=== PATIENT | female | born 1945 | race Caucasian/White ===

== ENCOUNTER → 2021-02-04 15:16 | Outpatient (CLI) | payer MEDICARE, SELFPAY ==
--- NOTE | ~2021-02-04 | MR_ITS ---
EXAMINATION: MR knee LT wo con DATE: 02/04/2021 15:54 INDICATION: Medial meniscal tear presenting with chronic generalized left knee pain TECHNIQUE: Magnetic resonance imaging (MRI) of the left knee was performed without intravenous contra st. Sequences included coronal PD-weighted FSE, coronal PD-weighted FS FSE, sagittal T2-weighted FSE , sagittal PD-weighted FS FSE and axial PD weighted fat saturated FSE. COMPARISON: None. FINDINGS: Medial compartment: There is complex tear of the medial meniscal body. There is medial extrusion of the meniscal body. Th ere is partial thickness cartilage loss which appears to involve greater than 50% the cartilage thick ness along the anterior to central weightbearing medial femoral condyle as well as significant portio ns of the medial tibial plateau. There is some associated low signal intensity eburnation along the a rticular cortices along with scattered mild subarticular edema) along the medial rim of the medial ti bial plateau where there appears be some developing subarticular cystic change. Articular cartilage i s normal. Lateral compartment: Lateral meniscus is normal. Small region of shallow chondral ulceration at the anterior weightbearing lateral femoral condyle as well as along the cartilage along the lateral side of the intercondylar e minence where there is mild subarticular edema. Patellofemoral compartment: Deep chondral ulceration along significant portions of the medial patellar facet extending across the cephalad aspect of the apical ridge and superomedial aspect of the lateral patellar facet. Lateral w ith mild underlying subarticular edema. Extensive deep chondral ulceration with underlying cortical i rregularity, subarticular edema and cystic changes at the inferior aspect of the medial trochlea, sma ll portion of the central aspect of the trochlear groove and significant portion of the lateral side of the lateral trochlea. Ligaments and tendons: The anterior cruciate ligament demonstrates a normal angle relative to Blumenstaat's line. It appears thickened with increased intrasubstance signal surrounding intact appearing linear fibers with a ce lery stalk appearance consistent with mucoid degeneration. Posterior cruciate ligament is normal. Th e medial collateral ligament and fibular collateral ligament complex are normal. The extensor mechani sm is normal. The visualized medial and lateral hamstring tendons as well as the iliotibial band are normal. Fluid: Moderate-sized knee joint effusion with moderate synovitis at the suprapatellar pouch and along the p osterior margin of Hoffa's fat pad. Large multilobulated Camarillo's cyst measuring 7.3 x 3.3 x 2.4 cm. A dditional small ganglion cyst extending caudally along the popliteus muscle and tendon. No loose oste ochondral bodies identified. Osseous/other: No fracture or abnormal marrow replacing process. IMPRESSION: 1. Complex tear at the posterior horn of the medial meniscus. 2. Tricompartmental osteoarthritis, moderate severity with extensive high-grade chondromalacia in the patellofemoral compartment and moderate to high-grade chondromalacia in the medial compartment. 3. Thickened but intact appearing anterior cruciate ligament with celery stalk appearance consistent with mucoid degeneration. Correlate with physical exam to assess for degree of functional competence. 4. Likely reactive moderate sized right knee joint effusion with moderate associated synovitis. 5. Large multiloculated Camarillo's cyst. Reviewed, dictated and finalized at location A.
== END ==
PROVIDERS: PCP Family Medicine; Visit Provider Family Medicine
DX: S83.249A Other tear of medial meniscus, current injury, unspecified knee, initial encounter (principal); M17.12 Unilateral primary osteoarthritis, left knee; M94.262 Chondromalacia, left knee; M25.462 Effusion, left knee; M65.862 Other synovitis and tenosynovitis, left lower leg; M71.22 Synovial cyst of popliteal space [Baker], left knee
CPT/HCPCS: 73721

== ENCOUNTER 2021-07-14 15:48 | Outpatient (CLI) | payer MEDICARE, SELFPAY ==
--- NOTE | ~2021-07-14 | MM_ITS ---
EXAMINATION: MM screening kathrine BI w corinne HISTORY: Screening TECHNIQUE: Craniocaudal and mediolateral oblique 3-D tomosynthesis images were obtained and synthetic 2-D images were generated. CAD analysis was submitted and interpreted. COMPARISON: Comparison to multiple prior studies sequentially, with oldest reviewed study dated 2011. BREAST PARENCHYMAL COMPOSITION: The breasts are heterogeneously dense, which may obscure small masses . FINDINGS: There is no evidence of suspicious mass, calcification, or architectural distortion to sugg est malignancy in either breast. There has been no suspicious interval change. IMPRESSION: 1. No mammographic evidence of malignancy. 2. Recommend routine screening mammography in one year. BI-RADS Category 1: Negative Reviewed, dictated and finalized at location A. TS ADMINISTRATIVE ASSISTANT
== END 2021-07-14 15:49 | disposition home or self-care (01) ==
LOC: ANHIMG 15:50
PROVIDERS: PCP Family Medicine; Visit Provider Physician Assistant Medical
DX: Z12.31 Encounter for screening mammogram for malignant neoplasm of breast (principal)
CPT/HCPCS: 77063; 77067

== ENCOUNTER 2022-09-11 08:52 | Outpatient (CLI) | payer MEDICARE, SELFPAY ==
--- NOTE | 2022-09-11 10:13 | ECG_ITS ---
Measurements Intervals [place] Rate: 56 P: 25 [place]: 156 QRS: 5 QRSD: 86 T: 78 QT: 428 QTc: 413 Interpretive Statements SINUS BRADYCARDIA NONSPECIFIC T-WAVE ABNORMALITY NO PREVIOUS ECG AVAILABLE FOR COMPARISON Electronically Signed On 09-11-2022 12:50:07 [employer]ELD WORK[employer] by Stanley Sneed M.D.
[2022-09-11 10:41] LABS: Basophils Percent Auto 0.5 % (0.2-1.2); Eosinophils Absolute Auto 0.1 K/mm3 (0-0.3); Eosinophils Percent Auto 1.5 % (0-4.4); Hematocrit 39.3 % (37.0-47.0); Hemoglobin 12.7 g/dL (12.0-15.0); Immature Granulocyte Absolute 0.02 K/mm3 (0.00-0.031); Immature Granulocyte Percent A 0.3 % (0-0.5); Lymphocytes Percent Auto 26.1 % (18.3-44.2); Mean Corpuscular HGB Conc 32.3 g/dl (32-36); Mean Corpuscular Hemoglobin 30.8 pg (26-34); Mean Corpuscular Volume 95.4 fl (80-100); Mean Platelet Volume 8.5 fl (7.4-10.4); Monocytes Absolute Auto 0.5 K/mm3 (0.1-0.6); Monocytes Percent Auto 7.1 % (2.6-8.5); Neutrophils Absolute Auto 4.7 K/mm3 (1.3-6.7); Neutrophils Percent Auto 64.5 % (45.5-73.1); Platelet Count Result 365 k/mm3 (150-375); Red Blood Count 4.12 M/mm3 (4.2-5.4); Red Cell Distribution Width 13.9 % (11.5-14.5); White Blood Count 7.3 K/mm3 (4.5-10.0)
[2022-09-11 11:07] LABS: Urine Cotinine NEGATIVE
== END 2022-09-11 08:53 | disposition home or self-care (01) ==
LOC: ANHSURGERY 08:58
PROVIDERS: PCP Family Medicine; Visit Provider Orthopaedic Surgery
DX: Z01.818 Encounter for other preprocedural examination (principal); M17.11 Unilateral primary osteoarthritis, right knee
CPT/HCPCS: 80307; 85025; 87081; 87147; 87181; 87186; 93005

== ENCOUNTER 2022-09-25 00:02 | Day surgery (SDC) | payer MEDICARE, SELFPAY ==
[2022-09-11 09:19] VITALS: BP 143/83; PULSE 60; RESP 16; TEMP 36.8; O2SAT 98; BMI 23.7
--- NOTE | 2022-09-11 09:38 | PC.NURSE ---
Report to the Outpatient Waiting Room, entrance under the green pavilion located off [facility], at time __6:00AM on date _09/25/22 . Planned Procedure Time: _7:30AM . Time changes happen often and if your time is changed the preop area will call you the afternoon before. - You and your visitor will be asked to self-screen and do not enter if you have any COVID symptoms. - Only one visitor is requested with a max of two and NO children visitors are allowed at this time. - The patient visitor may be requested to leave or wait in car when not with patient due to distancing restrictions. - A mask is optional within the hospital at this time. Patients may have clear liquids (water, carbonated beverages, clear teas, apple juice) until 3 hours prior to surgery with a maximum of 20 ounces. - No food from midnight until time of surgery Take the following medications with a SIP of water the morning of surgery: __FLUOXETINE, LEVOTHYROXINE, ALPRAZOLAM NEEDED, TRAMADOL NEEDED DO NOT STOP ANY OF YOUR OTHER PRESCRIPTION MEDICATIONS PRIOR TO SURGERY ?EXCEPT THE FOLLOWING Medications to discontinue per physician ____HOLD ALL VITAMINS/SUPPLEMENTS AND NSAIDS(IBUPROFEN)FOR 7 DAYS PRE-OP Date to take last dose 09/18/22 Please no make-up, nail bahamian, hairspray, perfume, deodorant, or body powder the day of surgery. No jewelry (including any body piercings) or valuables the day of surgery, leave them at home. Please take a shower or bath the night before, or the morning of, surgery with an antibacterial soap. Wear comfortable, loose fitting clothing. Children are encouraged to wear pajamas. - Jewelry must be removed prior to entering the operating room. Rings and piercings that are not removed may be cut off. - The hospital will not accept responsibility for valuables. - Please leave all valuables, including medications, at home the day of surgery. If you are going home after surgery, a licensed wrecker driver must drive you home. - NO public transportation without another adult if you receive anesthesia. - We recommend that an adult stay with you for 24 hours following discharge. - We also recommend that you do not drive, make important decision, drink alcoholic beverages, or take any drugs that were not prescribed by your health care provider for at least 24 hours after your discharge time. Follow any additional instructions given to you from your surgeon. If you or anyone in your household have experienced Covid symptoms in the past week, please notify your surgeon or the nurse liaison at the phone number below for possible testing. Telephone instructions given to __PATIENT____and asked if any additional questions and then verbalized understanding. Patient advised to call surgeon office or pre surgery nurse liaison [phone] if any additional questions.
--- NOTE | 2022-09-22 13:03 | PM.IMHP ---
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 She has been having pain in both her knees for years. She has severe medial compartment osteoarthritis in both knees. The right is more symptomatic than the left. She has tried cortisone injections in the past, With minimal improvement of her symptoms. She had Synvisc 1 injections in June of 2022 also with no improvement of her symptoms. Patient does use [id number] anti-inflammatories. She feels at this point she is ready to proceed with total knee arthroplasty rather than continue any nonsurgical treatment. Review of Systems Review of Systems: All systems reviewed & are unremarkable except as noted in HPI and below PMFSH Past Medical History Medical History Blood transfusion without reported diagnosis COVID-19 History of chicken pox History of measles Hx gestational diabetes Tattoo Surgical History Surgical History H/O partial thyroidectomy right History of adenoidectomy History of bladder surgery A&P repair History of hysterectomy History of tonsillectomy Family History Family History Mother , age 85 Diabetes mellitus Alzheimer's disease Father , age 70 Family history of heart disease in male family member before age 55 Depression Acute myocardial infarction Heart disease Coronary artery disease Sibling Hyperlipidemia Sibling , age 76 Hyperlipidemia Heart disease Sibling Prediabetes Sibling No chronic problems Grandparent Dementia Grandparent Dementia Daughter Prediabetes Daughter No chronic problems Daughter No chronic problems Other Malignant neoplasm of prostate Social History Social History Smoking status: Former smoker Tobacco type: cigarettes Smoking end date: 01/20/74 Additional smoking assessment comments: SMOKED ~1/2 PACK/WEEK X 3 YEARS Alcohol intake: current Substance use: never Living arrangements: with family Additional living arrangements comments: [facility] Spiritual care concerns: No Meds Home Medications and Allergies Home Medications Medication Instructions Recorded Confirmed Type blood sugar diagnostic #10 ea 07/09/19 09/20/22 History cholecalciferol (vitamin D3) 50 2,000 unit PO DAILY 07/09/19 09/20/22 History mcg (2,000 unit) tablet coenzyme Q10 200 mg capsule (Co 200 mg PO DAILY 07/09/19 09/20/22 History Q-10) omega-3 fatty acids 1,000 mg 1,000 mg PO DAILY 07/09/19 09/20/22 History capsule (Fish Oil Concentrate) pen needle, diabetic 31 gauge x #100 ea 08/31/20 09/20/22 Rx 3/16 (BD Ultra-Fine Mini Pen Needle) alprazolam 0.5 mg tablet (Xanax) 0.5 mg PO DAILY PRN Anxiety 09/11/22 09/20/22 History cyanocobalamin (vitamin B-12) 5,000 mcg PO DAILY 09/11/22 09/20/22 History 5,000 mcg capsule fluoxetine 40 mg capsule 40 mg PO QAM 09/11/22 09/20/22 History ibuprofen 800 mg tablet 800 mg PO BID 09/11/22 09/20/22 History insulin glargine 100 unit/mL (3 11 unit subcut QA 09/11/22 09/20/22 History mL) subcutaneous pen (Lantus Solostar U-100 Insulin) levothyroxine 112 mcg tablet 112 mcg PO QAM 09/11/22 09/20/22 History (Synthroid) metformin 500 mg tablet,extended 500 mg PO BID 09/11/22 09/20/22 History release 24 hr tramadol 50 mg tablet 100 mg PO BID 09/11/22 09/20/22 History valacyclovir 1 gram tablet 1,000 mg PO DAILY 09/11/22 09/20/22 History Allergies Allergy/AdvReac Type Severity Reaction Status Date / Time clindamycin AdvReac Unknown Diarrhea Verified 09/20/22 10:56 rosuvastatin AdvReac Unknown DEPRESSED Verif
[2022-09-25] VITALS (14 sets, daily range): BP systolic 104–169; BP diastolic 54–85; PULSE 63–97; RESP 12–20; TEMP 35.7–37; O2SAT 92–100
--- NOTE | ~2022-09-25 | US_ITS ---
EXAMINATION: US venous doppler LE RT DATE: 09/26/2022 15:08 INDICATION: Right lower limb pain. TECHNIQUE: Grayscale ultrasound images without and with compression and Doppler ultrasound images of the right lower extremity veins were obtained. COMPARISON: None. FINDINGS: The visualized portions of right common femoral vein, profunda (deep) femoral vein, femoral vein, pop liteal vein, peroneal veins, posterior tibial veins, and greater saphenous vein outflow are patent. IMPRESSION: 1. No deep venous thrombosis. Reviewed, dictated and finalized at location [facility]. [facility]
--- NOTE | ~2022-09-25 | XR_ITS ---
EXAMINATION: [id number] DATE: 09/25/2022 11:02 INDICATION: Total right knee arthroplasty. Postop. TECHNIQUE: 2 views of right knee were obtained. COMPARISON: None. FINDINGS: There is a total right knee arthroplasty without patellar resurfacing in near-anatomic alig nment. No fracture. There is gas in the knee joint and soft tissues, consistent with recent surgery. IMPRESSION: 1. Total right knee arthroplasty in near-anatomic alignment. Reviewed, dictated and finalized at location A. [facility]
[2022-09-25 07:00] LABS: Glucose Point of Care 88 mg/dl (65-105)
[2022-09-25] MEDS: LACTATED RINGERS 1,000 ML 30 ML IV CONT ×2 (07:00→10:56)
[2022-09-25] MEDS: TRANEXAMIC ACID 1,000MG/ISO100 1,000 MG/100 ML BAG 200 MG IVPB (07:00)
[2022-09-25] MEDS: ACETAMINOPHEN 500 MG TABLET 1000 MG PO ×2 (07:00→13:39)
--- NOTE | 2022-09-25 07:03 | WPDHPUPDATE1 ---
History and Physical Update Update Date/Time: 09/25/22 07:03 History and Physical has been reviewed, including an updated exam of the patient. There are NO changes in the patient's condition. Risks, benefits, and alternatives have been discussed and questions answered. Patient agrees to proceed with procedure.
--- NOTE | 2022-09-25 07:05 | WPDANESEPPF ---
Anes - Initial Pre Proc Eval Procedure: Operation Date: 09/25/22 07:30 Proposed Procedures p Right Total Knee Arthroplasty - Hemanth Aguilar MD Date/Time: 09/25/22 07:05 Surgeon: Hemanth Aguilar MD Pre Op Diagnosis: O.A. Right Knee Patient Data Age: 77 Gender: F Height: 1.65 m Weight: 64.6 kg Last Vital Signs Temp 98.2 F 09/11/22 09:19 Pulse 60 09/11/22 09:19 Resp 16 09/11/22 09:19 BP 143/83 H 09/11/22 09:19 Pulse Ox 98 09/11/22 09:19 O2 Del Method Room Air 09/11/22 09:19 Allergies Allergy/AdvReac Type Severity Reaction Status Date / Time clindamycin AdvReac Unknown Diarrhea Verified 09/20/22 10:56 rosuvastatin AdvReac Unknown DEPRESSED Verified 09/20/22 10:56 MOOD simvastatin AdvReac Unknown DEPRESSED Verified 09/20/22 10:56 MOOD amoxicillin AdvReac Diarrhea Verified 09/20/22 10:56 cephalexin [From Keflex] AdvReac Diarrhea Verified 09/20/22 10:56 diclofenac AdvReac Diarrhea Verified 09/20/22 10:56 Home Medications Medication Instructions Recorded Confirmed Type blood sugar diagnostic #10 ea 07/09/19 09/20/22 History cholecalciferol (vitamin D3) 50 2,000 unit PO DAILY 07/09/19 09/20/22 History mcg (2,000 unit) tablet coenzyme Q10 200 mg capsule (Co 200 mg PO DAILY 07/09/19 09/20/22 History Q-10) omega-3 fatty acids 1,000 mg 1,000 mg PO DAILY 07/09/19 09/20/22 History capsule (Fish Oil Concentrate) pen needle, diabetic 31 gauge x #100 ea 08/31/20 09/20/22 Rx 3/16 (BD Ultra-Fine Mini Pen Needle) alprazolam 0.5 mg tablet (Xanax) 0.5 mg PO DAILY PRN Anxiety 09/11/22 09/20/22 History cyanocobalamin (vitamin B-12) 5,000 mcg PO DAILY 09/11/22 09/20/22 History 5,000 mcg capsule fluoxetine 40 mg capsule 40 mg PO QAM 09/11/22 09/20/22 History ibuprofen 800 mg tablet 800 mg PO BID 09/11/22 09/20/22 History insulin glargine 100 unit/mL (3 11 unit subcut QAM 09/11/22 09/20/22 History mL) subcutaneous pen (Lantus Solostar U-100 Insulin) levothyroxine 112 mcg tablet 112 mcg PO QAM 09/11/22 09/20/22 History (Synthroid) metformin 500 mg tablet,extended 500 mg PO BID 09/11/22 09/20/22 History release 24 hr tramadol 50 mg tablet 100 mg PO BID 09/11/22 09/20/22 History valacyclovir 1 gram tablet 1,000 mg PO DAILY 09/11/22 09/20/22 History Laboratory Tests 09/25/22 06:57 POC Capillary Glucose 88 mg/dl mg/dl (65-105) Patient hx anesthesia problems: post op nausea/vomiting Family hx anesthesia problems: none Results Review: All pre-operative results and documents have been reviewed as part of the pre-operative evaluation. [facility] Past Medical History Medical History Blood transfusion without reported diagnosis COVID-19 History of chicken pox History of measles Hx gestational diabetes Tattoo Surgical History Surgical History H/O partial thyroidectomy right History of adenoidectomy History of bladder surgery A&P repair History of hysterectomy History of tonsillectomy Family History Family History Mother , age 85 Diabetes mellitus Alzheimer's disease Father , age 70 Family history of heart disease in male family member before age 55 Depression Acute myocardial infarction Heart disease Coronary artery disease Sibling Hyperlipidemia Sibling , age 76 Hyperlipidemia Heart disease Sibling Prediabetes Sibling No chronic problems Grandparent Dementia Grandparent Dementia Daughter Prediabetes Daughter No chronic problems Daughter No chronic problems Other Malignant neoplasm of prostate Social History Social History Smoking status: Former smoker Tobacco type: cigarettes Smoking end date: 01/20/74 Additional smoking a
[2022-09-25] MEDS: ceFAZolin 2 GM/D5W 50 ML 2 GM/50 ML BAG IVPB (07:28)
[2022-09-25] MEDS: SCOPOLAMINE 1.5 MG PATCH TRANSDERM (07:30)
[2022-09-25] MEDS: ceFAZolin SODIUM 1 GM VIAL 3 GM (08:32)
[2022-09-25] MEDS: GENTAMICIN BONE CEMENT REFOBACIN 1 EACH TOPICAL (09:46)
[2022-09-25] MEDS: KETOROLAC 15 MG/ML VIAL (*BKC) IV PUSH (09:57)
[2022-09-25] MEDS: TRANEXAMIC ACID 1,000 MG/10 ML AMPUL 1000 MG IV PUSH (10:00)
[2022-09-25] MEDS: ceFAZolin SODIUM 1 GM VIAL IV PUSH (10:02)
--- NOTE | 2022-09-25 10:34 | SUR.OPER ---
450mL of clear yellow urine drained from shea in OR
--- NOTE | 2022-09-25 10:36 | W.PM.PROC2 ---
Procedure Note - Detailed Date of Procedure 09/25/22 Pre-op Diagnosis O.A. Right Knee Post-op Diagnosis Same Procedure Performed Right total knee arthroplasty Surgeon Hemanth Aguilar MD Snuff Grinder Vangie Anesthesia General Description of Procedure Patient was brought to the operating room and general anesthesia wound was administered. She received 2 g of Ancef weight based vancomycin 1 g of tranexamic acid preoperatively. After prep and drape the limb was exsanguinated tourniquet elevated to 250 mmHg. A 7 in longitudinal incision was made over the anterior aspect of the right knee. Her skin was very thin and I did not feel it would be best to utilize a vastus medialis splitting approach because of the necessity of elevating the medial skin flap so standard parapatellar arthrotomy was performed. Infrapatellar and suprapatellar fat pads were excised a quadriceps synovectomy carried out. The patella had some small osteophytes that were debrided the remaining patellar surface had only very mild chondromalacia no deformity and suitable for non resurfacing. Minimal lateral facetectomy was performed. A A she had fairly extensive thick by synovitis in the suprapatellar pouch which was hyperemic and had fronds covering it surface. We will plan on obtaining a rheumatoid factor and anti CCP postoperatively. The arthritis was quite advanced however which might be the a explanation for the intense chronic synovitis. There was no ACL and the lateral tibial eminence was severely worn and there was a deep groove in the lateral tibial plateau a had been wearing against the lateral tibial eminence. A guide chantel was inserted down the femoral canal after aspiration of canal contents and using the 5 degree valgus cutting bushing 9 mm of bone removed the distal femur. This removed 9 for lateral side and only about 8 a from the medial side due to wear. Next the tibial plateau was cut and we made a skim cut off the low point of the medial tibial plateau and this removed about a 9 mm laterally. Meniscal remnants were excised and the PCL recessed. Femoral sizing guide was applied to the distal femur set at 4? of external rotation which matched Whitesides line. Posterior referencing pinholes were placed. The 62.5 cutting block was applied but we could see this was going to notch. We introduced a little bit of flexion on the distal femoral cut and applied the 65 cutting block which gave a flush cut anteriorly. Posterior and chamfer cuts were completed. The 65 femur however on over 1 mm medially and about 2 mm laterally I felt it was just a little too wide. The 10 CR trial slid in easily in flexion and came to close to full extension. The tibia was sized to a 67 vanguard. The we tried to make a 71 fit it was going to overhang at the proper rotation by at least 2 mm. The 67 was rotated properly and punched. We trialed with the 10 insert which had a medial opening at 90? of 1 mm 2 mm on the lateral side. The knee almost came out to full extension with 1-2 medially and laterally. We trialed the 11 and it was too tight at 90? of flexion no anterior drawer. We carefully assess the fit of the 65 femur and even posteriorly it was overhanging lateral femoral condyle and I felt it therefore necessary to downsized to the 62.5. We did this by introducing another degree of flexion and proceeded carefully to minimize the degree of notch which was present but mild. Chamfer and posterior cuts were made appropriate and the 62.5 fit exactly line to line distally from medial to lateral. With this we had the same stability findings as mentioned above. We still had just a barely positive bounce. The residual posterior condylar bone was removed this time with the trial femur in place and on repeat trialing the knee came out to full extension with a negative bounce. Patellar tracking was excellent. Satisfied with this the lug holes were drilled. We had put the tourniquet down earlier at 9
--- NOTE | 2022-09-25 11:04 | P.OPB_ITS ---
Procedure Note - Brief Procedure Note - Brief Date of procedure: 09/25/22 Pre-op diagnosis: O.A. Right Knee Right knee DJD Procedure performed: right total knee arthroplasty Description of procedure: [age]-year-old female underwent right total knee arthroplasty on 09/25. I was involved in the procedure including positioning patient on the OR table. assistant professor of marine biology to time surgery as well assisting getting patient to recovery room. Total time spent was 3-1/2 hours Surgeon: KORINA Moore
[2022-09-25 11:07] LABS: Glucose Point of Care 190 mg/dl (65-105)
[2022-09-25] MEDS: fentaNYL CITRATE INJ (*CRX) 100 MCG/2 ML VIAL 25 MCG IV PUSH ×7 (11:23→12:28)
[2022-09-25] MEDS: ONDANSETRON INJ 4 MG/2 ML VIAL IV PUSH ×2 (11:23→17:42)
[2022-09-25] MEDS: diphenhydrAMINE HCl INJ 50 MG/ML VIAL 12.5 MG IV PUSH (11:58)
--- NOTE | 2022-09-25 13:33 | PC.NURSE ---
This patient, Stephania Benjamin, was admitted to Medical Room 345-01. Patient/family oriented to hospital policies and general routines including ID bracelet, bed and alarms, visiting hours, pain management, procedures, bathroom and other care routines, personal items, smoking policy, room service/diet, and visiting hours. Information on how to activate the Rapid Response Team has been discussed. Patient/Family are encouraged to report perceived risks to care and to ask questions if they do not understand what they are told or what they should do.
[2022-09-25] MEDS: SODIUM CHLORIDE 0.9% IV 1,000 ML 125 ML IV CONT (13:40)
--- NOTE | 2022-09-25 14:08 | PC.NURSE ---
Called pharmacy regarding toradol dose. There is none in the pyxis at this time.
[2022-09-25] MEDS: KETOROLAC 15 MG/ML VIAL (*BKC) 7.5 MG IV PUSH ×2 (15:25→21:18)
[2022-09-25 15:43] LABS: Glucose Point of Care 179 mg/dl (65-105)
[2022-09-25 16:11] LABS: Rheumatoid Factor < 8.6 IU/ML (<12)
[2022-09-25] MEDS: ceFAZolin 1 GM/NS 50 ML 1 GM/50 ML BAG IVPB (17:45)
--- NOTE | 2022-09-25 20:20 | WPDCN ---
Assessment and Plan Assessment and plan (1) Right knee DJD: Code(s): M17.11 - Unilateral primary osteoarthritis, right knee Status: Acute Assessment and Plan: Postoperative day 0 status post right total knee arthroplasty. Wound care, pain control, and DVT prophylaxis deferred to Dr. Aguilar. BMP and CBC ordered for a.m. (2) Postoperative nausea and vomiting: Code(s): R11.2 - Nausea with vomiting, unspecified; Z98.890 - Other specified postprocedural states Status: Acute Assessment and Plan: Ondansetron did not help much. Phenergan helps the nausea but caused mild confusion. Symptoms are a lot better. She is tolerating only small amounts of clear liquids. (3) Insulin dependent diabetes mellitus: Status: Acute Assessment and Plan: Hold basal insulin for now as she is not eating much. Initiate sliding scale insulin, Accu-Cheks, and hypoglycemic protocol. (4) Hypothyroidism: Code(s): E03.9 - Hypothyroidism, unspecified Status: Acute Assessment and Plan: Continue levothyroxine and check TSH. (5) Depression: Code(s): F32.A - Depression, unspecified Status: Acute Assessment and Plan: Continue fluoxetine. Plan Thank you for allowing us to participate in this patient's care. Please do not hesitate to contact us with any questions. HPI Data of Consult Date/Time: 09/25/22 20:20 Requesting Physician: Hemanth Aguilar MD Consult Narrative Reason for consult: Postoperative medical management. Narrative: This is a 59-year-old female with Insulin-dependent diabetes, dyslipidemia intolerant to statins, hypothyroidism, depression, and osteoarthritis of the right knee status post right total knee arthroplasty today per Dr. Aguilar whom the hospitalist service has been consulted for management of her medical conditions postoperatively. She has had longstanding pain in that right knee not amenable to conservative outpatient treatment and she opted for replacement today. Her surgery was performed under general anesthesia with no immediate complications documented an estimated blood loss of 200 mL. I initially saw the patient when she was working with physical therapy. She felt a bit unsteady and woozy on her feet and was nauseated when she stood up. None less she was able to participate in therapy. As the day has progressed she has continued to have postoperative nausea and a couple of episodes of emesis. She was given ondansetron without benefit and a 1 time dose of Phenergan 12.5 mg was ordered which has helped significantly with the nausea though she now seems a bit confused. Pain is currently 4/10 and manageable. She denies fever, chills, sweats, chest pain, and shortness of breath. No personal or family history of venous thromboembolism. Glucose has been stable. No blurry vision, polydipsia, or polyuria. Review of Systems Review of Systems: Twelve systems were reviewed and are negative except for as per HPI. [facility] Past Medical History Medical History Basal cell carcinoma of skin of lip COVID-19 (09/2021) Depression Dyslipidemia Hypothyroidism Insulin dependent diabetes mellitus Irritable bowel syndrome with diarrhea Surgical History Surgical History History of arthroplasty of right knee (09/25/22) History of bladder surgery A&P repair History of hysterectomy History of partial thyroidectomy Right lobe. History of tonsillectomy and adenoidectomy Family History Family History Mother , age 85 Diabetes mellitus Alzheimer's disease Father , age 70 Family history of heart disease in male family member before age 55 Depression Acute myocardial infarction Heart disease Coronary artery disease Sibling Hyperlipidemia Sibling
[2022-09-25 20:47] LABS: Glucose Point of Care 161 mg/dl (65-105)
[2022-09-25] MEDS: PROMETHAZINE HCL 25 MG/ML AMPUL 12.5 MG IV PUSH (21:19)
[2022-09-26] MEDS: ceFAZolin 1 GM/NS 50 ML 1 GM/50 ML BAG IVPB ×2 (00:55→10:17)
[2022-09-26 02:33] VITALS: BP 159/66; PULSE 86; RESP 20; TEMP 36.6; O2SAT 94
[2022-09-26 05:36] LABS: Basophils Percent Auto 0.1 % (0.2-1.2); Hematocrit 28.3 % (37.0-47.0); Hemoglobin 9.4 g/dL (12.0-15.0); Immature Granulocyte Absolute 0.05 K/mm3 (0.00-0.031); Immature Granulocyte Percent A 0.4 % (0-0.5); Lymphocytes Percent Auto 7.1 % (18.3-44.2); Mean Corpuscular HGB Conc 33.2 g/dl (32-36); Mean Corpuscular Hemoglobin 30.9 pg (26-34); Mean Corpuscular Volume 93.1 fl (80-100); Mean Platelet Volume 8.9 fl (7.4-10.4); Monocytes Absolute Auto 0.9 K/mm3 (0.1-0.6); Monocytes Percent Auto 7.7 % (2.6-8.5); Neutrophils Absolute Auto 9.6 K/mm3 (1.3-6.7); Neutrophils Percent Auto 84.7 % (45.5-73.1); Platelet Count Result 227 k/mm3 (150-375); Red Blood Count 3.04 M/mm3 (4.2-5.4); Red Cell Distribution Width 13.9 % (11.5-14.5); White Blood Count 11.3 K/mm3 (4.5-10.0)
[2022-09-26 06:02] LABS: Alanine Aminotransferase 18 U/L (6-35); Albumin Level 3.5 g/dL (3.5-5.1); Alkaline Phosphatase 62 U/L (38-126); Anion Gap 1 mmol/L (8-16); Aspartate Amino Transferase 29 U/L (14-36); Bilirubin,Total 0.7 mg/dL (0.2-1.3); Blood Urea Nitrogen 9 mg/dL (7-17); Calcium 8.6 mg/dL (8.4-10.2); Carbon Dioxide 30 mmol/L (22-30); Chloride 97 mmol/L (98-107); Estimated CRCL calculation 73 ml/min; Estimated Glomerular Filt Rate > 60; Glucose 170 mg/dL (65-110); Magnesium 1.6 mg/dL (1.6-2.3); Potassium 4.1 mmol/L (3.4-5.0); Sodium 128 mmol/L (137-145)
[2022-09-26 06:33] VITALS: BP 155/64; PULSE 88; RESP 18; TEMP 36.2; O2SAT 92
[2022-09-26] MEDS: ACETAMINOPHEN 500 MG TABLET 1000 MG PO ×2 (06:49→12:46)
[2022-09-26] MEDS: LEVOTHYROXINE SODIUM 112 MCG TABLET PO (06:49)
[2022-09-26] MEDS: oxyCODONE HCL (*CRX) 5 MG TAB IR PO (06:50)
--- NOTE | 2022-09-26 07:18 | PM.PNORT ---
Subjective Subjective Date/Time Seen: 09/26/22 07:18 Postop day 1 patient is alert. She is afebrile vital signs are stable. Patient was having a lot of nausea last night and still this morning. She was very lightheaded when she got out bed so she has not been ambulating. She has been using a bedside commode only. She has a longstanding history nausea 4 years. There has been no episodes of emesis. She has not eaten anything aside from some crackers up until this point. She tried Zofran last night without improvement of the nausea and Phenergan caused her to become extremely sleepy. Sodium is low at 128 that could be contributing to her nausea. Also she has been taking narcotics on an empty stomach which could also be contributing to the nausea. I am going to change her narcotics to a lower dose. Going to give her a dose of Decadron this morning which should help with pain control as well. We will replace her scopolamine patch this morning as well. Her dressing is dry and intact. Neurovascularly she is intact. Minimal swelling in the knee. The plan will be to have the patient work with physical therapy today and see how she does through the afternoon. Hopefully she will be doing well and able ambulate without significant symptoms in which case we will plan to discharge her to home. If she continues to have significant symptoms and has difficulty with ambulation and balance we may need to keep her for an additional night. This was discussed with the patient this morning. Objective Data Vital Signs Vital Signs: Vital Signs - 24 hr 09/25/22 07:29 09/25/22 11:00 09/25/22 11:15 Temperature 35.7 C L 37.0 C Pulse Rate 63 84 92 Respiratory Rate 14 12 16 Blood Pressure 169/85 H 104/65 126/58 L Pulse Oximetry 97 99 100 Oxygen Delivery Room Air Simple Face Mask Simple Face Mask Oxygen Flow Rate 8 8 09/25/22 11:30 09/25/22 11:45 09/25/22 12:01 Temperature Pulse Rate 97 92 95 Respiratory Rate 20 14 18 Blood Pressure 131/60 128/59 L 135/59 L Pulse Oximetry 98 98 94 Oxygen Delivery Simple Face Mask Room Air Room Air Oxygen Flow Rate 8 09/25/22 12:16 09/25/22 12:30 09/25/22 13:00 Temperature 36.6 C Pulse Rate 94 95 80 Respiratory Rate 16 16 14 Blood Pressure 148/72 H 162/74 H 144/65 H Pulse Oximetry 96 97 98 Oxygen Delivery Room Air Room Air Oxygen Flow Rate 09/25/22 13:15 09/25/22 13:45 09/25/22 15:29 Temperature 36.6 C 36.3 C L Pulse Rate 79 81 Respiratory Rate 14 16 Blood Pressure 140/57 L 120/54 L Pulse Oximetry 98 98 Oxygen Delivery Room Air Oxygen Flow Rate 09/25/22 18:33 09/25/22 20:00 09/25/22 21:56 Temperature 36.3 C L 36.2 C L Pulse Rate 73 73 92 Respiratory Rate 18 18 20 Blood Pressure 166/81 H 162/68 H Pulse Oximetry 97 97 92 Oxygen Delivery Room Air Oxygen Flow Rate 09/26/22 02:33 09/26/22 06:33 Temperature 36.6 C 36.2 C L Pulse Rate 86 88 Respiratory Rate 20 18 Blood Pressure 159/66 H 155/64 H Pulse Oximetry 94 92 Oxygen Delivery Oxygen Flow Rate Intake/Output Intake/Output: Intake & Output 09/23/22 09/24/22 09/25/22 09/26/22 23:59 23:59 23:59 23:59 Intake Total 3820 50 Output Total 900 400 Balance 2920 -350 Meds/Results Medications: Active Medications Generic Name Dose Route Start Last Admin Trade Name Freq PRN Reason Stop Dose Admin Acetaminophen 1,000 mg 09/25/22 12:48 09/26/22 06:49 Acetaminophen 500 Mg Tablet PO 1,000 mg Q6H [facility] Administration Alprazolam 0.5 mg 09/25/22 12:48 Alprazolam (*Crx) 0.5 Mg Tablet PO DAILY PRN Anxiety Apixaban 2.5 mg 09/26/22 09:00 Apixaban 2.5 Mg Tablet PO 10/07/22 21:01 Q12HR [facility] Celecoxib 200 mg 09/26/22 08:00 Celecoxib 200 Mg Capsule PO DAILY@0800 [facility] Dexamethasone Sodium Phosphate 8 mg 09/26/22 07:20 Dexamethasone Sod Phos Inj 4 Mg/Ml Vial IV PUSH ONCE [facility] Dextrose 12.5 gm 09/25/22 23:24 Dextrose 50% 25 Gm/50 M
[2022-09-26] MEDS: SCOPOLAMINE 1.5 MG PATCH TRANSDERM (08:39)
[2022-09-26] MEDS: polyethylene glycoL 3350 17 GM POWD.PACK PO (08:39)
[2022-09-26 08:41] LABS: Glucose Point of Care 213 mg/dl (65-105)
[2022-09-26] MEDS: SENNA/DOCUSATE SODIUM TABLET 2 TAB PO (10:12)
[2022-09-26] MEDS: APIXABAN 2.5 MG TABLET PO (10:12)
[2022-09-26] MEDS: CHOLECALCIFEROL 1,000 UNITS TABLET 2000 UNITS PO (10:12)
[2022-09-26] MEDS: FLUoxetine HCL 20 MG CAPSULE 40 MG PO (10:13)
[2022-09-26] MEDS: DOXYCYCLINE HYCLATE 100 MG TABLET PO (10:13)
[2022-09-26] MEDS: FAMOTIDINE 20 MG TABLET PO (10:13)
[2022-09-26] MEDS: valACYclovir HCL 500 MG TABLET 1000 MG PO (10:13)
[2022-09-26] MEDS: oxyCODONE HCL (*CRX) 2.5 MG TAB IR PO ×2 (10:15→13:33)
[2022-09-26 10:33] VITALS: BP 135/66; PULSE 66; RESP 16; TEMP 36.8; O2SAT 100
[2022-09-26 12:28] LABS: Glucose Point of Care 232 mg/dl (65-105)
[2022-09-26] MEDS: INSULIN ASPART (*BKC) 100 UNITS/ML SUB-Q (12:46)
--- NOTE | 2022-09-26 13:03 | WPDANESPN ---
Anes - Prog Note Post-Op Date/Time: 09/26/22 13:03 Cardiovascular status: normal Respiratory status: normal Airway patency: baseline Mental status: baseline Post-Op hydration status: normal Vital Signs: Last Vital Signs Temp 36.8 C 09/26/22 10:33 Pulse 66 09/26/22 10:33 Resp 16 09/26/22 10:33 BP 135/66 09/26/22 10:33 Pulse Ox 100 09/26/22 10:33 O2 Del Method Room Air 09/26/22 10:15 O2 Flow Rate 8 09/25/22 11:30 Pain Score (VAS): 09/29 I/O: Intake & Output 09/25/22 09/26/22 09/26/22 23:59 07:59 15:59 Intake Total 1920 50 120 Output Total 900 400 Balance 1020 -350 120 Laboratory Tests 09/26/22 05:21 09/26/22 05:21 09/25/22 09/25/22 09/25/22 15:41 15:53 15:53 WBC RBC Hgb Hct MCV MCH MCHC RDW Plt Count MPV Immature Gran % (Auto) Neut % (Auto) Lymph % (Auto) [place] % (Auto) Eos % (Auto) Baso % (Auto) Lymph # (Auto) [place] # (Auto) Eos # (Auto) Baso # (Auto) Abs Immat Gran (auto) Absolute Neuts (auto) Absolute Nucleated RBC Nucleated RBC % Sodium Potassium Chloride Carbon Dioxide Anion Gap BUN Creatinine Estim Creat Clear Calc Estimated GFR Glucose POC Capillary Glucose 179 H Calcium Magnesium Total Bilirubin Direct Bilirubin AST ALT Alkaline Phosphatase Total Protein Albumin TSH (Reflex) Rheumatoid Factor < 8.6 Anti-Cycl Citrul Peptide Pending 09/25/22 09/26/22 09/26/22 20:43 05:21 05:21 WBC 11.3 H RBC 3.04 L Hgb 9.4 L D Hct 28.3 L MCV 93.1 MCH 30.9 MCHC 33.2 RDW 13.9 Plt Count 227 MPV 8.9 Immature Gran % (Auto) 0.4 Neut % (Auto) 84.7 H Lymph % (Auto) 7.1 L [place] % (Auto) 7.7 Eos % (Auto) 0.0 Baso % (Auto) 0.1 L Lymph # (Auto) 0.80 L [place] # (Auto) 0.9 H Eos # (Auto) 0.0 Baso # (Auto) 0.0 Abs Immat Gran (auto) 0.05 H Absolute Neuts (auto) 9.6 H Absolute Nucleated RBC 0.0 Nucleated RBC % 0.0 Sodium 128 L Potassium 4.1 Chloride 97 L Carbon Dioxide 30 Anion Gap 1 L BUN 9 Creatinine 0.50 L Estim Creat Clear Calc 73 Estimated GFR > 60 Glucose 170 H POC Capillary Glucose 161 H Calcium 8.6 Magnesium 1.6 Total Bilirubin 0.7 Direct Bilirubin 0.0 AST 29 ALT 18 Alkaline Phosphatase 62 Total Protein 6.0 L Albumin 3.5 TSH (Reflex) Rheumatoid Factor Anti-Cycl Citrul Peptide 09/26/22 09/26/22 09/26/22 05:21 08:34 12:20 WBC RBC Hgb Hct MCV MCH MCHC RDW Plt Count MPV Immature Gran % (Auto) Neut % (Auto) Lymph % (Auto) [place] % (Auto) Eos % (Auto) Baso % (Auto) Lymph # (Auto) [place] # (Auto) Eos # (Auto) Baso # (Auto) Abs Immat Gran (auto) Absolute Neuts (auto) Absolute Nucleated RBC Nucleated RBC % Sodium Potassium Chloride Carbon Dioxide Anion Gap BUN Creatinine Estim Creat Clear Calc Estimated GFR Glucose POC Capillary Glucose 213 H 232 H Calcium Magnesium Total Bilirubin Direct Bilirubin AST ALT Alkaline Phosphatase Total Protein Albumin TSH (Reflex) 2.560 Rheumatoid Factor Anti-Cycl Citrul Peptide Post-procedural complaints: none Patient Feedback: Patient satisfied with anesthetic care.
--- NOTE | 2022-09-26 13:39 | WPDGICN ---
Assessment and Plan Assessment and plan (1) Postoperative nausea and vomiting: Code(s): R11.2 - Nausea with vomiting, unspecified; Z98.890 - Other specified postprocedural states Status: Acute Assessment and Plan: Postoperative nausea and vomiting appears to have resolved. Likely related to medications common anesthesia except drip. Currently patient tolerated diet with no residual nausea. She states in the morning she always has difficulty with liquids on empty stomach. No specific additional therapy warranted at this time. Will follow with you if necessary. (2) Right knee DJD: Code(s): M17.11 - Unilateral primary osteoarthritis, right knee Status: Acute (3) Insulin dependent diabetes mellitus: Status: Acute GI Consult Note Consult date/time: 09/26/22 13:39 Reason for consult: Nausea postoperatively HPI: Stephania Benjamin is a 77 year old female I am asked to see because of postop nausea. Patient underwent right total knee replacement yesterday. Apparently at exhibited some postoperative nausea. For this reason I have been consulted. Patient states she feels much better today. She is well-oriented recognize me upon entering the room. Patient is currently tolerating a hamburger lunch without difficulty. She states in the morning she prefers not to drink water or on an empty stomach because this does cause her to feel queasy in the morning this is been present for quite some time. Episode of nausea at the time of postoperative state appears to have resolved according to nurses. Patient did receive Phenergan yesterday. Review of Systems Review of Systems: Review of systems is noncontributory. ON LICENSE OF [facility] Past Medical History Medical History Basal cell carcinoma of skin of lip COVID-19 (09/2021) Depression Dyslipidemia Hypothyroidism Insulin dependent diabetes mellitus Irritable bowel syndrome with diarrhea Surgical History Surgical History History of arthroplasty of right knee (09/25/22) History of bladder surgery A&P repair History of hysterectomy History of partial thyroidectomy Right lobe. History of tonsillectomy and adenoidectomy Family History Family History Mother , age 85 Diabetes mellitus Alzheimer's disease Father , age 70 Family history of heart disease in male family member before age 55 Depression Acute myocardial infarction Heart disease Coronary artery disease Sibling Hyperlipidemia Sibling , age 76 Hyperlipidemia Heart disease Sibling Prediabetes Sibling No chronic problems Grandparent Dementia Grandparent Dementia Daughter Prediabetes Daughter No chronic problems Daughter No chronic problems Other Malignant neoplasm of prostate Social History Social History (Updated 09/25/22 @ 15:28 by Lindsay Thomas PA-C) Social History: Surrogate medical decision maker: Zully Cerda, daughter. Code status: Full code. Smoking status: Former smoker Tobacco type: cigarettes Smoking end date: 01/20/74 Additional smoking assessment comments: Smoked about 0.5 packs a week for 3 years. Alcohol intake: current Alcohol use details: Social alcohol use in moderation. Substance use: never Substance use type: does not use Lack of Transportation: YES Lack of Food: Never True Current Housing: I Have Housing Concerned About Future Housing: No Difficulty Paying Gas/Electric Bills: No Difficulty Paying for Meds: No Currently Unemployed: No Education: Decline to Answer Difficulty w/ Childcare or Family Care: No Living arrangements: with family Additional living arrangements comments: Lives in [place] with significant other. Additional occupation/education comments: Re
[2022-09-26 14:33] VITALS: BP 147/72; PULSE 73; RESP 18; TEMP 36.2; O2SAT 95
--- NOTE | 2022-09-26 15:24 | PM.IMPN ---
Progress Note: A&P Assessment and Plan (1) Right knee DJD: Code(s): M17.11 - Unilateral primary osteoarthritis, right knee Status: Acute Assessment and Plan: Postoperative day 1 status post right total knee arthroplasty. Continue routine wound care, pain control, and DVT prophylaxis per orthopedics. (2) Postoperative nausea and vomiting: Code(s): R11.2 - Nausea with vomiting, unspecified; Z98.890 - Other specified postprocedural states Status: Acute Assessment and Plan: Ondansetron did not help much. Phenergan helped the nausea but caused mild confusion. Symptoms are a lot better. She is tolerating oral intake now. Follow. (3) Insulin dependent diabetes mellitus: Status: Acute Assessment and Plan: The patient's blood glucose was reviewed on 09/26 Glucose remains poorly controlled. Continue AccuCheks covering with sliding scale. Hypoglycemia protocol available as needed. Resume some home meds now that she is eating and her glucose is climbing. (4) Hypothyroidism: Code(s): E03.9 - Hypothyroidism, unspecified Status: Acute Assessment and Plan: TSH normal. Continue levothyroxine (5) Depression: Code(s): F32.A - Depression, unspecified Status: Acute Assessment and Plan: Mood stable. Continue fluoxetine. Subjective Date/time seen: 09/26/22 15:24 Interval history: 77yo female with DM, depression, and osteoarthritis of the right knee status post right total knee arthroplasty whom the hospitalist service was consulted for management of her medical conditions postoperatively.? Patient with severe nausea post-operatively that now has improved. SHe was able to eat breakfast and lunch today. This is not uncommon for her and she always has n/v with anaesthesia. She is up walking to the bathroom. Exam Narrative: AF 98.2 135/66 66 16 100% ra Gen - NARD Chest - CTA bilaterally, nml RR CV - RRR S1/S2 Abd - Soft, NT/ND, Positive BS Ext - No pedal edema. 2+ PT pulses bilaterally. mild bruising noted right medial knee. Neuro - Alert and oriented. Nonfocal exam. Normal sensation to the right toes Psych - Nml mood and affect Skin - Warm and dry Objective Data Vital Signs Vital Signs: Vital Signs - 24 hr 09/25/22 15:29 09/25/22 18:33 09/25/22 20:00 Temperature 97.3 F L Pulse Rate 73 73 Respiratory Rate 18 18 Blood Pressure 166/81 H Pulse Oximetry 97 97 Oxygen Delivery Room Air Room Air 09/25/22 21:56 09/26/22 02:33 09/26/22 06:33 Temperature 97.1 F L 97.8 F 97.1 F L Pulse Rate 92 86 88 Respiratory Rate 20 20 18 Blood Pressure 162/68 H 159/66 H 155/64 H Pulse Oximetry 92 94 92 Oxygen Delivery 09/26/22 10:15 09/26/22 10:33 Temperature 98.2 F Pulse Rate 66 Respiratory Rate 16 Blood Pressure 135/66 Pulse Oximetry 100 Oxygen Delivery Room Air Intake/Output Intake/Output: Intake & Output 09/23/22 09/24/22 09/25/22 09/26/22 23:59 23:59 23:59 23:59 Intake Total 3820 410 Output Total 900 400 Balance 2920 10 Meds/Results Medications: Active Medications Generic Name Dose Route Start Last Admin Trade Name Freq PRN Reason Stop Dose Admin Acetaminophen 1,000 mg 09/25/22 12:48 09/26/22 12:46 Acetaminophen 500 Mg Tablet PO 1,000 mg Q6H [facility] Administration Alprazolam 0.5 mg 09/25/22 12:48 Alprazolam (*Crx) 0.5 Mg Tablet PO DAILY PRN Anxiety Apixaban 2.5 mg 09/26/22 09:00 09/26/22 10:12 Apixaban 2.5 Mg Tablet PO 10/07/22 21:01 2.5 mg Q12HR [facility] Administration Celecoxib 100 mg 09/26/22 14:25 Celecoxib 100 Mg Capsule PO DAILY@0800 [facility] Dextrose 12.5 gm 09/25/22 23:24 Dextrose 50% 25 Gm/50 Ml Syringe IV PUSH PRN PRN Hypoglycemia Protocol Diphenhydramine HCl 25 mg 09/25/22 12:48 Diphenhydramine Hcl Inj 50 Mg/Ml Vial IV PUSH Q6H PRN Itching Doxycycline Hyclate 100 mg 09/26/22 09:00
--- NOTE | 2022-09-26 15:32 | PC.NURSE ---
Called Dr. Aguilar with results of US
--- NOTE | 2022-09-26 15:49 | PM.DS ---
DS: Admitting Diagnosis Discharge Date 09/26/2022 Admitting Diagnosis osteoarthritis right knee. DS: Discharge Diagnosis Discharge Diagnosis Plan Patient underwent right total knee replacement on 09/25/2022. She was admitted for observation after outpatient surgery and after surgery she complained of severe nausea. the nausea kept her from eating yesterday all day and with the pills she was taking on an empty stomach this exacerbated the nausea. As result she did not get out of bed yesterday. Early this morning she was still very nauseated. She was given a dose of Decadron and oxycodone does decreased to 2.5 mg every 4 hours down from 5 and her severe nausea resolved and she did well with physical therapy today. We asked Dr. Black to see her as I thought it was unusual that she had long history of significant intolerance to drinking a glass of water in the morning when she wakes up making her feel nauseated and she would have to lay down to get relief. Dr. Black indicated that that could be observed and he would be happy to follow up with her on outpatient basis if her symptoms became more problematic. On his seeing her, her nausea from the day before and in the morning had already fully resolved and therefore it was thought most likely due to the general anesthesia and narcotics. When I saw her in the recovery room after surgery she had a sensation that she needed to burp. My concern was that she might have some gastritis issues and we did start her on Pepcid and we have sent her home with a prescription for Pepcid which she will start if she notices any heartburn and if she has that experience she will stay on until she sees is in the office. If she is asymptomatic relative to heartburn symptoms she does not have to take it. She was sent home with Arvin to use on an as needed basis. I have written out instructions for her medications including the warning that it is dangerous to combine oxycodone and Xanax because of risk of respiratory depression. Because of her diabetes and smoking history she is a candidate for extended oral antibiotics for infection prophylaxis following knee replacement I will be sent home on doxycycline. She will use stool softeners to prevent constipation associated with narcotics. Eliquis for DVT prophylaxis for 12 days followed by baby aspirin twice daily for 4 additional weeks. Labs today hemoglobin 9.4 platelets [id number], sodium 128 creatinine 0.5. Glucose levels today 170-232. We did check a rheumatoid factor and anti CCP as she had rather significant synovitis in her knee. The where was very severe also. Rheumatoid factor was less than 8.6 and the anti CCP is pending. Today she has been noticing some cramping in her right calf and medial thigh and she is concerned about the possibility of DVT therefore we obtained venous duplex ultrasound today right lower extremity which was negative for DVT. Patient has outpatient physical therapy scheduled. I will see her in the office in 10 days to assess her progress. She was advised to call us if she has any questions or concerns. DS: Summary Hospital Course Reason for hospitalization: Recovery after total knee replacement Hospital Course: see above Status at Discharge Cognitive/behavioral status at discharge: normal Time Spent with Patient Time attestation: Total time spent providing and/or coordinating discharge services: DS: Data Data Completed and Pending Labs on day of discharge: Labs from last 24 hours 09/26/22 09/26/22 09/26/22 12:20 08:34 05:21 WBC RBC Hgb Hct MCV MCH MCHC RDW Plt Count MPV Immature Gran % (Auto) Neut % (Auto) Lymph % (Auto) [place] % (Auto) Eos % (Auto) Baso % (Auto) Lymph # (Auto) [place] # (Auto) Eos # (Auto) Baso # (Auto) Abs Immat Gran (auto) Absolute Neuts (auto) Absolute Nucleated RBC Nucleated RBC % Sodium Potassium C
[2022-09-29 09:28] LABS: Anti Cyclic Citrullinated Pept <16 Units (<20)
== END 2022-09-26 16:55 | disposition home or self-care (01) ==
LOC: ANHSURGERY 06:10 → ANH3MED 13:22
PROVIDERS: Physician Assistant; Physician Assistant Surgical; PCP Family Medicine; Visit Provider Orthopaedic Surgery
PROC: (CPT 27447; principal; 2022-09-25 07:30)
DX: M17.11 Unilateral primary osteoarthritis, right knee (principal); R11.2 Nausea with vomiting, unspecified; M79.661 Pain in right lower leg; E03.9 Hypothyroidism, unspecified; E11.9 Type 2 diabetes mellitus without complications; F32.A Depression, unspecified; Z79.4 Long term (current) use of insulin; Z79.84 Long term (current) use of oral hypoglycemic drugs; Z87.891 Personal history of nicotine dependence
CPT/HCPCS: 27447; 36415; 73560; 80048; 80076; 80307; 82948; 83735; 84443; 85025; 86200; 86430; 86850; 86900; 86901; 87081; 87147; 87181; 87186; 93005; 93971; 97110; 97116; 97161; 97165; 97530; 97535; A9270; C1713; C1776; J0171; J0690; J1100; J1170; J1200; J1815; J1885; J2250; J2270; J2405; J2550; J2704; J2710; J2795; J3010; J3370; J7030; J7120

== ENCOUNTER 2022-09-29 06:21 | Inpatient (IN) | payer MEDICARE, SELFPAY ==
[2022-09-29] VITALS (30 sets, daily range): BP systolic 132–168; BP diastolic 47–110; PULSE 55–82; RESP 12–18; TEMP 36.7–37.3; O2SAT 92–100; BMI 23.3
--- NOTE | ~2022-09-29 | CT_ITS ---
CT of the Abdomen and Pelvis: Indication: Diverticulitis, abscess Technique: 2.5 mm axial scans were obtained through the abdomen and pelvis following intravenous adm inistration of 100 cc of Omnipaque 350. Dose reduction technique was used on this scan by utilizing a utomated exposure control and iterative reconstruction technique. The dose-length product (DLP) was 4 37.57 mGy-cm. COMPARISON: 09/29/2022 Findings: Scans through the lung bases demonstrate minimal pleural effusions with mild bibasilar sca rring or atelectasis. The liver, spleen, pancreas, gallbladder, adrenals and kidneys are within normal limits. No evidence of aortic aneurysm. There are atherosclerotic calcifications of the aorta. No lymphadenopathy. There is moderate pneumoperitoneum, new from prior exam. There is extensive wall thickening of the si gmoid colon, with surrounding inflammatory stranding and change. There is a peripherally enhancing ab scess with small amount of internal air in the pelvis, just anterior to the distal rectum, measuring approximately 6.3 x 5.0 x 3.5 cm in size (axial image 149 for example). This probably communicates wi th a more irregular, somewhat crescentic abscess in the high left pelvis, with this component measuri ng up to approximately 7.5 x 2.0 cm in extent (axial image 128 for example). Images through the pelvis were performed. Urinary bladder unremarkable. Patient is post cholecystecto my. Impression: Moderate pneumoperitoneum is new from prior exam, consistent with bowel perforation. Extensive wall thickening and inflammatory change of the sigmoid colon is consistent with diverticuli tis, worsened/progressed from prior exam. Worsening/enlarging abscess in the pelvis, with a 6.3 x 5.0 x 3.5 cm deep pelvic abscess, which likel y communicates with a more irregular, crescentic abscess in the more superior left pelvis measuring u p to 7.5 x 2.0 cm in extent. Minimal pleural effusions. Findings discussed with Dr. Go at the time of this reading. Reviewed, dictated and finalized at [facility]. Impression: Moderate pneumoperitoneum is new from prior exam, consistent with bowel perfora tion. Extensive wall thickening and inflammatory change of the sigmoid colon is consi stent with diverticulitis, worsened/progressed from prior exam. Worsening/enlarging abscess in the pelvis, with a 6.3 x 5.0 x 3.5 cm deep pelvi c abscess, which likely communicates with a more irregular, crescentic abscess in the more superior left pelvis measuring up to 7.5 x 2.0 cm in extent. Minimal pleural effusions. Findings discussed with Dr. Go at the time of this reading.
--- NOTE | ~2022-09-29 | XR_ITS ---
Supine and upright views of the abdomen Clinical history: Abdominal pain Findings: Bowel gas pattern is nonspecific. No evidence for obstruction or free air. No abnormal mass lesion or calcification is seen. Degenerative change of the lumbar spine noted. Impression: Nonspecific bowel gas pattern. Reviewed, dictated and finalized at [facility]. [employer]ACHINE Impression: Nonspecific bowel gas pattern.
--- NOTE | ~2022-09-29 | CT_ITS ---
EXAMINATION: CT abdomen pelvis w con DATE: 09/29/2022 08:18 INDICATION: Abdominal pain, constipation TECHNIQUE: Computed tomography (CT) of the abdomen and pelvis was performed with 100 CC Omnipaque 350 intravenous contrast. Automated exposure control and iterative reconstruction technique were employe d. Exam dose: 434.47 mGy-cm total exam DLP. COMPARISON: 09/29/2022 KUB FINDINGS: Mild discoid atelectasis or scarring in the lower lingular and bilateral lower lobes. Normal heart size. No pericardial or pleural effusion. Small sliding hiatal hernia. The liver, gallbladder, bile ducts, spleen, pancreas, pancreatic duct, and adrenal glands and kidneys are unremarkable. No urinary tract calculus or hydroureteronephrosis. The urinary bladder is unremar kable. Status post hysterectomy. There is atherosclerotic calcification of the abdominal aorta but no aneurysm. No intraperitoneal or retroperitoneal or pelvic mass lesion or adenopathy. There are numerous diverticula, of the sigmoid and to a lesser extent descending colon. There is mild free fluid accumulation in the lower paracolic gutters and dependent pelvis with extral uminal paracolic fluid and air collections in the left lower quadrant adjacent to the sigmoid colon. Findings are consistent with diverticulitis and diverticular abscesses. There is a prominent of fecal material in the rectum and colon. No bowel obstruction. There is severe degenerative disc disease at T9-10, L2-3, L3-4, L4-5 and L5-S1 and very prominent deg enerative change of the lumbar apophyseal joints. Bilateral hip osteoarthritis. IMPRESSION: Diverticulitis of the sigmoid colon with diverticular abscesses, mild free fluid in the lower paracolic gutters and pelvis Reviewed, dictated and finalized at [facility]. Reviewed, dictated and finalized at [facility]. [employer] IMPRESSION: Diverticulitis of the sigmoid colon with diverticular abscesses, m ild free fluid in the lower paracolic gutters and pelvis
--- NOTE | ~2022-09-29 | CT_ITS ---
EXAMINATION: CT guide absc cath placement DATE: 10/04/2022 14:23 INDICATION: Pelvic abscess. TECHNIQUE: The procedure including the risks, benefits, and alternatives was discussed with the patie nt. Risks discussed included bleeding and infection. The patient understood the risks and benefits an d agreed to proceed. The patient was confirmed to be receiving appropriate antibiotic coverage. The skin overlying the abdomen was prepped and draped in usual sterile fashion. Anesthetic was administe red with 1% lidocaine subcutaneously. Moderate sedation was achieved with 1 mg Versed IV and 50 mcg f entanyl IV. An 18 gauge trochar needle was inserted into the perirectal abscess with CT guidance. The needle was exchanged over a wire for 6 Lebanese and 8 Lebanese dilators and then for an 8.5 [place] catheter. The catheter was stitched to the skin, and a sterile dressing was applied. The mA was ad justed according to patient size. Iterative reconstruction technique was employed. The dose-length pr oduct was 174.34 mGy-cm. There were no immediate complications. FINDINGS: CT images demonstrate the catheter within the perirectal abscess. 8 mL fluid was aspirated for testing. IMPRESSION: 1. Successful CT-guided perirectal abscess drainage. 2. 8 mL opaque, brown fluid was sent for aerobic and anaerobic cultures. Reviewed, dictated and finalized at [facility].
--- NOTE | 2022-09-29 07:20 | ED.GENADULT ---
HPI - General Adult General Chief complaint: Abdominal Pain Stated complaint: ABD pain Time Seen by Provider: 09/29/22 07:13 History of Present Illness HPI narrative: 77-year-old female presented to the emergency department for evaluation of increased abdominal cramping. Patient states that she recently had a total knee performed by Dr. Aguilar and has since had increased difficulty having a bowel movement. Patient reports she does have a prior history of vaginal hysterectomy but denies any abdominal surgeries. Patient states she has been having increased belching and increased flatus. Patient reports she has been taking stool softeners with no significant results. Related Data Home Medications Medication Instructions Recorded Confirmed blood sugar diagnostic #10 ea 07/09/19 09/29/22 cholecalciferol (vitamin D3) 50 2,000 unit PO DAILY 07/09/19 09/29/22 mcg (2,000 unit) tablet coenzyme Q10 200 mg capsule (Co 200 mg PO DAILY 07/09/19 09/29/22 Q-10) omega-3 fatty acids 1,000 mg 1,000 mg PO DAILY 07/09/19 09/29/22 capsule (Fish Oil Concentrate) alprazolam 0.5 mg tablet (Xanax) 0.5 mg PO DAILY PRN Anxiety 09/11/22 09/29/22 cyanocobalamin (vitamin B-12) 5,000 mcg PO DAILY 09/11/22 09/29/22 5,000 mcg capsule fluoxetine 40 mg capsule 40 mg PO QAM 09/11/22 09/29/22 insulin glargine 100 unit/mL (3 11 unit subcut QAM 09/11/22 09/29/22 mL) subcutaneous pen (Lantus Solostar U-100 Insulin) levothyroxine 112 mcg tablet 112 mcg PO QAM 09/11/22 09/29/22 (Synthroid) metformin 500 mg tablet,extended 500 mg PO BID 09/11/22 09/29/22 release 24 hr valacyclovir 1 gram tablet 1,000 mg PO DAILY 09/11/22 09/29/22 acetaminophen 500 mg tablet 1,000 mg PO Q6H 09/29/22 09/29/22 latanoprost 0.005 % eye drops 1 drp EACH EYE QHS 09/29/22 09/29/22 ondansetron HCl 8 mg tablet 8 mg PO Q6H PRN Nausea 09/29/22 09/29/22 oxycodone 5 mg tablet 2.5 mg PO Q4HR PRN Pain 09/29/22 09/29/22 Allergies Allergy/AdvReac Type Severity Reaction Status Date / Time clindamycin AdvReac Unknown Diarrhea Verified 09/29/22 06:27 rosuvastatin AdvReac Unknown DEPRESSED Verified 09/29/22 06:27 MOOD simvastatin AdvReac Unknown DEPRESSED Verified 09/29/22 06:27 MOOD amoxicillin AdvReac Diarrhea Verified 09/29/22 06:27 cephalexin [From Keflex] AdvReac Diarrhea Verified 09/29/22 06:27 diclofenac AdvReac Diarrhea Verified 09/29/22 06:27 Review of Systems Review of Systems: CONSTITUTIONAL: Denies fever, chills, or sweats. EYES: Denies visual changes, redness, or discharge. ENT: Denies rhinorrhea, congestion, sore throat, or otalgia. CARDIOVASCULAR: Denies chest pain, palpitations, or edema. RESPIRATORY: Denies cough or dyspnea. GASTROINTESTINAL: See HPI GENITOURINARY: Denies dysuria or hematuria. SKIN: Denies rash or itching. MUSCULOSKELETAL: Denies back pain, joint pain, or myalgia. NEUROLOGIC: Denies headache, numbness, or weakness. PSYCHIATRIC: Denies anxiety or depression. All systems reviewed & are unremarkable except as noted in HPI and below PMFSH Past Medical History Medical History Basal cell carcinoma of skin of lip COVID-19 (09/2021) Depression Dyslipidemia Hypothyroidism Insulin dependent diabetes mellitus Irritable bowel syndrome with diarrhea Surgical History Surgical History History of arthroplasty of right knee (09/25/22) History of bladder surgery A&P repair History of hysterectomy History of partial thyroidectomy Right lobe. History of tonsillectomy and adenoidectomy Family History Family History Mother , age 85 Diabetes mellitus Alzheimer's disease Father , age 70 Family history of heart disease in male family member before age 55 Depression Acute myocardial infarction Heart disease Coronary artery disease Sibling Hyperlipidem
[2022-09-29 07:30] LABS: Basophils Percent Auto 0.5 % (0.2-1.2); Eosinophils Percent Auto 0.4 % (0-4.4); Hematocrit 30.1 % (37.0-47.0); Hemoglobin 9.7 g/dL (12.0-15.0); Immature Granulocyte Absolute 0.01 K/mm3 (0.00-0.031); Immature Granulocyte Percent A 0.2 % (0-0.5); Lymphocytes Absolute Auto 0.48 K/mm3 (0.9-3.2); Lymphocytes Percent Auto 8.7 % (18.3-44.2); Mean Corpuscular HGB Conc 32.2 g/dl (32-36); Mean Corpuscular Volume 96.2 fl (80-100); Mean Platelet Volume 9.4 fl (7.4-10.4); Monocytes Absolute Auto 0.2 K/mm3 (0.1-0.6); Monocytes Percent Auto 3.6 % (2.6-8.5); Neutrophils Absolute Auto 4.8 K/mm3 (1.3-6.7); Neutrophils Percent Auto 86.6 % (45.5-73.1); Platelet Count Result 321 k/mm3 (150-375); Red Blood Count 3.13 M/mm3 (4.2-5.4); Red Cell Distribution Width 14.1 % (11.5-14.5); White Blood Count 5.5 K/mm3 (4.5-10.0)
[2022-09-29 07:46] LABS: Partial Thromboplastin Time 28.8 SECONDS (22.3-36.8); Prothrombin Time 12.8 Seconds (11.1-14.7)
[2022-09-29] MEDS: HYDROmorphone HCL INJ (*CRX) 1 MG/ML SYR 0.5 MG IV PUSH ×2 (07:46→09:41)
[2022-09-29] MEDS: SODIUM CHLORIDE 0.9% IV 1,000 ML 999 ML IV CONT (07:46)
[2022-09-29 07:47] LABS: Alanine Aminotransferase 32 U/L (6-35); Albumin Level 3.5 g/dL (3.5-5.1); Alkaline Phosphatase 90 U/L (38-126); Anion Gap 6 mmol/L (8-16); Aspartate Amino Transferase 55 U/L (14-36); Blood Urea Nitrogen 14 mg/dL (7-17); Calcium 8.2 mg/dL (8.4-10.2); Carbon Dioxide 26 mmol/L (22-30); Chloride 97 mmol/L (98-107); Estimated Glomerular Filt Rate > 60; Glucose 191 mg/dL (65-110); Lactic Acid Reflex 1.4 mmol/L (0.7-2.0); Potassium 3.5 mmol/L (3.4-5.0); Sodium 129 mmol/L (137-145)
[2022-09-29] MEDS: metroNIDAZOLE 500 MG/ISO 100ML 500 MG/100 ML BAG 100 MG IVPB ×3 (09:41→23:24)
--- NOTE | 2022-09-29 11:22 | ADMGEN ---
This patient, Stephania Benjamin, was admitted to Medical Room 250-01. Patient/family oriented to hospital policies and general routines including ID bracelet, bed and alarms, visiting hours, pain management, procedures, bathroom and other care routines, personal items, smoking policy, room service/diet, and visiting hours. Information on how to activate the Rapid Response Team has been discussed. Patient/Family are encouraged to report perceived risks to care and to ask questions if they do not understand what they are told or what they should do.
[2022-09-29] MEDS: PANTOPRAZOLE SODIUM IV 40 MG VIAL IV PUSH (12:41)
[2022-09-29] MEDS: SODIUM CHLORIDE 0.9% IV 1,000 ML 100 ML IV CONT (12:41)
--- NOTE | 2022-09-29 12:41 | PM.CNGS ---
Assessment and Plan Assessment and plan (1) Sigmoid diverticulitis: Code(s): K57.32 - Diverticulitis of large intestine without perforation or abscess without bleeding Status: Acute Assessment and Plan: Patient presents with sigmoid diverticulitis without drainable pelvic abscess. Will start her on Zosyn and Flagyl for IV antibiotics and keep her NPO except for ice chips. The white blood cell count is normal and she is hemodynamically stable without diffuse peritoneal signs. She has a reasonably good chance to resolve the diverticulitis with non operative management at this time. She will need to get a colonoscopy in 4 to 6 weeks if nonoperative management is successful. I did briefly discuss with her the possibility of emergent laparotomy and need for a diverting colostomy. She understands. (2) Right knee DJD: Code(s): M17.11 - Unilateral primary osteoarthritis, right knee Status: Acute Assessment and Plan: Patient had right total knee replacement by Dr. Aguilar 4 days ago. Will consult him to see her and comment on any needs she may need to have therapy or DVT prophylaxis while she is in the hospital for her acute sigmoid diverticulitis. History of Present Illness Consult details Consult date: 09/29/22 Reason for consult: abdominal pain (Sigmoid diverticulitis) Narrative: Patient is a 77-year-old female who yesterday started having severe lower abdominal pain. She thought she was constipated and has not been able to have a bowel movement. The pain worsened today and so she presented to the emergency room. She has not had any nausea vomiting and no fevers at home. Four days ago she underwent a right total knee replacement here at [facility] by Dr. Aguilar. She has been taking narcotic pain medicines a home for postoperative pain. Workup of her abdominal pain with a CT scan abdomen pelvis showed sigmoid diverticulitis with some free fluid in the pelvis a possible small abscesses but no significant abdominal free air or large abscess that could be drained. White blood cell count is normal and she is afebrile and hemodynamically stable. She has not had a colonoscopy for many years. She has never been hospitalized with diverticulitis in the past. Review of Systems Review of Systems: The remainder of the review of systems to include constitutional, HEENT, cardiovascular, respiratory, GI, , integumentary, musculoskeletal, endocrine, immunologic, hematologic, psychiatric, and neurologic are all negative except for which is mentioned above in the HPI. [facility] Past Medical History Medical History Basal cell carcinoma of skin of lip COVID-19 (09/2021) Depression Dyslipidemia Hypothyroidism Insulin dependent diabetes mellitus Irritable bowel syndrome with diarrhea Surgical History Surgical History History of arthroplasty of right knee (09/25/22) History of bladder surgery A&P repair History of hysterectomy History of partial thyroidectomy Right lobe. History of tonsillectomy and adenoidectomy Family History Family History Mother , age 85 Diabetes mellitus Alzheimer's disease Father , age 70 Family history of heart disease in male family member before age 55 Depression Acute myocardial infarction Heart disease Coronary artery disease Sibling Hyperlipidemia Sibling , age 76 Hyperlipidemia Heart disease Sibling Prediabetes Sibling No chronic problems Grandparent Dementia Grandparent Dementia Daughter Prediabetes Daughter No chronic problems Daughter No chronic problems Other Malignant neoplasm of prostate Social History Social History Social History: Surrogate medical decision maker: Curt
--- NOTE | 2022-09-29 12:45 | PM.IMHP ---
H&P: HPI History of Present Illness Date/Time: 09/29/22 12:45 Chief Complaint: Abdominal pain. Narrative: This is a 77-year-old female with?insulin-dependent diabetes, dyslipidemia intolerant to statins, hypothyroidism, depression, and osteoarthritis who presented to the emergency department via EMS from home for evaluation of abdominal pain. Patient provides the following history. She is postoperative day 4 status post right total knee arthroplasty per Dr. Aguilar and her chart was reviewed from those days that she was in the hospital. I was involved in the patient's care and saw her in consultation for postoperative nausea and vomiting which did improve with Phenergan however she had mild confusion with that. Her symptoms improved and she was able to go home the day following surgery. She has not had a bowel movement since surgery despite taking stool softeners and MiraLax but she has been belching and passing flatness. Yesterday she developed pretty severe cramping discomfort throughout the lower abdomen, more so on the left side, that has persisted despite taking acetaminophen and oxycodone. She has been eating okay last had soup for dinner yesterday evening. She denies fever, chills, sweats, chest pain, shortness a breath, nausea, and vomiting. She was afebrile on arrival to the ED with stable vital signs. Pertinent labs include a WBC count of 5.5, stable postoperative hemoglobin of 9.7, sodium 129, potassium 3.5, BUN 14, creatinine 0.50, lactic acid 1.4. CT of the abdomen and pelvis showed prominent fecal material in the rectum and colon and diverticulitis of the sigmoid colon with diverticular abscess and she is being admitted in this setting for IV antibiotics and surgery consultation. Review of Systems Review of Systems: 12 systems were reviewed and are negative except for as per HPI. [facility] Past Medical History Medical History Basal cell carcinoma of skin of lip COVID-19 (09/2021) Depression Dyslipidemia Hypothyroidism Insulin dependent diabetes mellitus Irritable bowel syndrome with diarrhea Surgical History Surgical History History of arthroplasty of right knee (09/25/22) History of bladder surgery A&P repair History of hysterectomy History of partial thyroidectomy Right lobe. History of tonsillectomy and adenoidectomy Family History Family History Mother , age 85 Diabetes mellitus Alzheimer's disease Father , age 70 Family history of heart disease in male family member before age 55 Depression Acute myocardial infarction Heart disease Coronary artery disease Sibling Hyperlipidemia Sibling , age 76 Hyperlipidemia Heart disease Sibling Prediabetes Sibling No chronic problems Grandparent Dementia Grandparent Dementia Daughter Prediabetes Daughter No chronic problems Daughter No chronic problems Other Malignant neoplasm of prostate Social History Social History Social History: Surrogate medical decision maker: Zully Cerda, daughter. Code status: Full code. Years smoked: 3 Smoking status: Former smoker Tobacco type: cigarettes Smoking end date: 01/20/74 Additional smoking assessment comments: Smoked about 0.5 packs a week for 3 years. Alcohol intake: current Alcohol use details: Social alcohol use in moderation. Substance use: never Substance use type: does not use Lack of Transportation: YES Lack of Food: Never True Current Housing: I Have Housing Concerned About Future Housing: No Difficulty Paying Gas/Electric Bills: No Difficulty Paying for Meds: No Currently Unemployed: No Education: Decline to Answer Difficulty w/ Childcare or Family Care: No Living a
[2022-09-29 13:16] LABS: Basophils Percent Auto 0.1 % (0.2-1.2); Hematocrit 27.8 % (37.0-47.0); Hemoglobin 9.2 g/dL (12.0-15.0); Immature Granulocyte Absolute 0.02 K/mm3 (0.00-0.031); Immature Granulocyte Percent A 0.2 % (0-0.5); Lymphocytes Percent Auto 4.2 % (18.3-44.2); Mean Corpuscular HGB Conc 33.1 g/dl (32-36); Mean Corpuscular Hemoglobin 30.6 pg (26-34); Mean Corpuscular Volume 92.4 fl (80-100); Mean Platelet Volume 8.7 fl (7.4-10.4); Monocytes Absolute Auto 0.4 K/mm3 (0.1-0.6); Monocytes Percent Auto 4.5 % (2.6-8.5); Neutrophils Absolute Auto 8.8 K/mm3 (1.3-6.7); Platelet Count Result 304 k/mm3 (150-375); Red Blood Count 3.01 M/mm3 (4.2-5.4); Red Cell Distribution Width 13.9 % (11.5-14.5); White Blood Count 9.6 K/mm3 (4.5-10.0)
[2022-09-29 13:27] LABS: Partial Thromboplastin Time 28.3 SECONDS (22.3-36.8)
[2022-09-29 13:29] LABS: Anion Gap 6 mmol/L (8-16); Blood Urea Nitrogen 11 mg/dL (7-17); Calcium 8.1 mg/dL (8.4-10.2); Carbon Dioxide 27 mmol/L (22-30); Chloride 95 mmol/L (98-107); Estimated CRCL calculation 73 ml/min; Estimated Glomerular Filt Rate > 60; Glucose 198 mg/dL (65-110); Potassium 3.9 mmol/L (3.4-5.0); Sodium 128 mmol/L (137-145)
[2022-09-29] MEDS: DEXTROSE 5%/LACTATED RINGERS 1,000 ML 120 ML IV CONT (14:22)
[2022-09-29] MEDS: HYDROmorphone HCL INJ (*CRX) 1 MG/ML SYR IV PUSH ×3 (14:23→20:19)
--- NOTE | 2022-09-29 14:57 | PCOTNOTE ---
Spoke with pt. and ordering physician, As pt. does not require or request occupational therapy services at this time. Re-order if needed.
[2022-09-29] MEDS: PIPERACILLN/TAZ 3.375GM/NS50ML 3.375 GM/50 ML BAG IVPB ×3 (15:01→23:24)
[2022-09-29 17:30] LABS: Creatinine Urine 55.3 mg/dL
[2022-09-29 17:57] LABS: Sodium Urine Random 96 meq/L
--- NOTE | 2022-09-29 23:29 | PC.NURSE ---
PT REFUSING LANTUS AND SLIDING SCALE NOVOLOG STATING THAT SINCE SHE IS NOT EATING SHE IS FEARFUL TAKING THE MEDICATION WILL MAKE HER BOTTOM OUT. PT AWARE OF CURRENT BLOOD SUGAR OF 206 AND STILL FEELS SHE DOES NOT NEED TO TAKE ANYTHING.
[2022-09-30 00:37] LABS: Sodium 125 mmol/L (137-145)
[2022-09-30] MEDS: HYDROmorphone HCL INJ (*CRX) 1 MG/ML SYR IV PUSH ×4 (04:28→18:15)
[2022-09-30] MEDS: DEXTROSE 5%/LACTATED RINGERS 1,000 ML 120 ML IV CONT (04:28)
[2022-09-30] MEDS: metroNIDAZOLE 500 MG/ISO 100ML 500 MG/100 ML BAG 100 MG IVPB ×3 (05:03→17:38)
[2022-09-30] MEDS: PIPERACILLN/TAZ 3.375GM/NS50ML 3.375 GM/50 ML BAG IVPB ×4 (05:03→23:13)
[2022-09-30 05:34] LABS: Hematocrit 25.9 % (37.0-47.0); Hemoglobin 8.6 g/dL (12.0-15.0); Mean Corpuscular HGB Conc 33.2 g/dl (32-36); Mean Corpuscular Hemoglobin 30.6 pg (26-34); Mean Corpuscular Volume 92.2 fl (80-100); Mean Platelet Volume 8.9 fl (7.4-10.4); Platelet Count Result 313 k/mm3 (150-375); Red Blood Count 2.81 M/mm3 (4.2-5.4); Red Cell Distribution Width 13.9 % (11.5-14.5); White Blood Count 6.7 K/mm3 (4.5-10.0)
[2022-09-30] MEDS: LEVOTHYROXINE SODIUM INJ 100 MCG/5 ML VIAL 56 MCG IV PUSH (05:45)
[2022-09-30 05:48] VITALS: BP 125/56; PULSE 78; RESP 16; TEMP 37.1; O2SAT 90
[2022-09-30 05:56] LABS: Anion Gap 5 mmol/L (8-16); Blood Urea Nitrogen 9 mg/dL (7-17); Calcium 8.1 mg/dL (8.4-10.2); Carbon Dioxide 27 mmol/L (22-30); Chloride 94 mmol/L (98-107); Estimated CRCL calculation 73 ml/min; Estimated Glomerular Filt Rate > 60; Glucose 210 mg/dL (65-110); Magnesium 1.7 mg/dL (1.6-2.3); Potassium 3.8 mmol/L (3.4-5.0); Sodium 126 mmol/L (137-145)
[2022-09-30 07:23] LABS: Band Neutrophils Percent 36 % (0-6); Lymphocytes Absolute Manual 0.46 K/mm3 (1.1-4.5); Metamyelocytes Percent 1 %; Monocytes Percent Manual 3 % (3-9); Neutrophils Absolute Manual 5.96 K/mm3 (1.7-7.2); Neutrophils Percent Manual 53 % (46-73); Total Cells Counted 100
[2022-09-30 07:24] LABS: Hypochromasia 1+ (NORMAL); Platelet Estimate Adequate (Adequate); Poikilocytosis 1+ (NORMAL); Schistocytes None Seen (NORMAL)
[2022-09-30] MEDS: ENOXAPARIN 40 MG/0.4 ML SYRINGE SUB-Q (08:10)
[2022-09-30] MEDS: PANTOPRAZOLE SODIUM IV 40 MG VIAL IV PUSH (08:11)
[2022-09-30 08:35] VITALS: O2SAT 92
--- NOTE | 2022-09-30 08:40 | PM.IMPN ---
Progress Note: A&P Assessment and Plan (1) Abscess of sigmoid colon due to diverticulitis: Code(s): K57.20 - Diverticulitis of large intestine with perforation and abscess without bleeding Status: Acute Assessment and Plan: Noted on CT scan. General Surgery following. NPO. continue IV fluids, pain control and IV zosyn & flagyl (2) Hyponatremia: Code(s): E87.1 - Hypo-osmolality and hyponatremia Status: Acute Assessment and Plan: Sodium 126 today, but 128 when corrected for hyperglycemia. It was 128 on admission. May have SIADH component. Urine sodium 96, urine creatinine 55.3, urine osmo pending. change D5 IV fluids to NS@120. (3) Insulin dependent diabetes mellitus: Status: Chronic Assessment and Plan: NPO. Lower dose lantus ordered. Dextrose fluids stopped due to hyponatremia. Accu-checks Q6 hours with hypoglycemia protocol. (4) Hypothyroidism: Qualifiers: Hypothyroidism type: acquired Qualified Code(s): E03.9 - Hypothyroidism, unspecified Code(s): E03.9 - Hypothyroidism, unspecified Status: Chronic Assessment and Plan: Continue levothyroxine (5) Depression: Qualifiers: Depression Type: major depressive disorder Major depression recurrence: unspecified whether recurrent Psychotic features: without psychotic features Code(s): F32.A - Depression, unspecified Status: Chronic Assessment and Plan: Continue current medications. Plan CODE STATUS: FULL CODE Disposition: full code Time Spent With Patient Time: 30 minutes time spent with patient assessment, patient education, review of labs, vitals and nursing documentation. All questions answered to the best of my ability. Subjective Date/time seen: 09/30/22 08:40 Interval history: Her abdominal pain and distention is somewhat improved. She denies stools, nausea or emesis. She does not have an appetite, however. No chest pain, SOB, palpitations, dizziness or paresthesia. Exam Narrative: General:?Well-developed, nontoxic-appearing female supine in bed. Weight: 63.6 kg. BMI: 23.3. HEENT:? PERRL, EOMI. Sclera anicteric. Tacky mucous membranes. Neck:??Supple.? Respiratory:?Lungs are clear to auscultation bilaterally. Cardiovascular:??Regular rate and rhythm with S1-S2.? Gastrointestinal:? Abdomen is soft and nondistended with hypoactive bowel sounds. She is tender to deeper palpation throughout the lower abdomen, left greater than right. No guarding or rebound tenderness. Skin:? Warm and dry.? No rash or lesions on limited exam. Extremities:? No cyanosis, clubbing, or edema. Radial and pedal pulses intact. Musculoskeletal:?Right knee dressing is clean, dry, and intact. Knee is elevated on a pillow. Neurological:? Alert. Cranial nerves 2-12 grossly intact. No gross focal deficits to casual conversation. Psychiatric:??Pleasant and cooperative with normal mood and affect. Objective Data Vital Signs Vital Signs: Vital Signs - 24 hr 09/29/22 09:18 09/29/22 08:45 09/29/22 09:00 Temperature Pulse Rate 72 Respiratory Rate 18 Blood Pressure 159/62 H Pulse Oximetry 96 94 96 Oxygen Delivery 09/29/22 09:15 09/29/22 09:30 09/29/22 09:44 Temperature Pulse Rate Respiratory Rate Blood Pressure 168/73 H Pulse Oximetry 96 95 95 Oxygen Delivery 09/29/22 09:45 09/29/22 10:02 09/29/22 11:05 Temperature Pulse Rate 73 Respiratory Rate 18 Blood Pressure 148/67 H Pulse Oximetry 92 95 96 Oxygen Delivery 09/29/22 11:33 09/29/22 14:00 09/29/22 20:00 Temperature 98.4 F 98.4 F Pulse Rate 75 75 Respiratory Rate 18 18 Blood Pressure 148/64 H 148/64 H Pulse Oximetry 95 95 Oxygen Delivery Room Air 09/29/22 22:00 09/30/22 05:48 Temperature 99.2 F 98.8 F Pulse Rate 82 78 Respiratory Rate 17 16 Blood Pressure 132/56 L 125/56 L Pulse Oximetry 95 90 Oxygen Delivery Intake/Output Intak
--- NOTE | 2022-09-30 12:41 | PM.PNORT ---
Progress Note: A&P Assessment and Plan (1) History of total knee arthroplasty: Code(s): Z96.659 - Presence of unspecified artificial knee joint Status: Acute Assessment and Plan: Diagnosis: Status post right total knee arthroplasty on 09/2509/25/2019 days ago, readmitted for diverticulitis and small clinton intestinal abscess Patient is postop day 5 after right total knee arthroplasty. She went home on 09/26 2022 without symptoms of nausea and was contacted by phone on 09/27/2022 and spoke to Konstantin BELLA and specifically denied any nausea or abdominal symptoms at that time. Over the subsequent 2 days she developed her symptoms that brought her to the emergency room. Per Dr. Go's note, small abscess adjacent to intestinal diverticulitis is noted and it is hoped that this can be successfully treated and brought to resolution with antibiotics alone. I have increased her Lovenox to 30 mg q.12 hours instead of the 40 Q 24 as the 30 q.12 hours is more effective for DVT prophylaxis specifically after knee replacement surgery. Lovenox will be easier to reverse if the need arises for urgent surgical intervention rather than the Eliquis she was discharged home with. For pain control, since he is NPO except for ice chips, I have ordered IV Tylenol 1000 mg q.6 hours scheduled. She has p.r.n. Dilaudid ordered IV. On exam she is neurologically intact. She has a fair amount of ecchymosis down the front of the hui and of the lesser degree in the anterior thigh but very mild swelling in the knee and no pretibial or ankle edema. She has done an excellent job with her elevation. With respect to pain she states that she is not noticing any pain in the knee. She is having a lot more pain in the left lower quadrant particularly but this is getting better compared to yesterday. That is her chief complaint now. In talking to her, she related that a year and half ago and she had COVID she started having after the COVID resolved intermittent bloating associated with left lower quadrant pain and this lasted about 2 months. There was then an episode where she passed gas or thirst thought she did but a mucousy material came out her rectum which seems strange and then all of her symptoms resolved. However over the last 2 months she has been having occasional episodes of bloating and left lower quadrant pain again but these were not severe enough to cause her to seek medical attention. Hopefully she will have continued improvement as she is feeling much better. Dr. Go has advised me that at approximately 6 weeks from now she will require a colonoscopy to make sure that there is not a colon cancer that may have precipitated this problem. One she is switched back to p.o. we will switch her Tylenol back to p.o. and can resume the 100 mg Celebrex daily. At that point we can switch from Dilaudid IV to oxycodone p.o. also. Her stool softeners are on hold right now as she is NPO and Dr. Go will advise on resumption of stool softeners when appropriate. Unfortunately she will be at risk for severe constipation problems off the stool softeners because she will continue to be on narcotics. With respect to DVT prophylaxis after discharge, the plan will be to have her go back on Eliquis if she is felt to be doing very well of from the standpoint of the diverticulitis and the likelihood of requiring a percutaneous drainage of fluid collection is considered very low. Subjective Subjective Date/Time Seen: 09/30/22 12:41 Objective Data Vital Signs Vital Signs: Vital Signs - 24 hr 09/29/22 14:00 09/29/22 20:00 09/29/22 22:00 Temperature 36.9 C 37.3 C Pulse Rate 75 82 Respiratory Rate 18 17 Blood Pressure 148/64 H 132/56 L Pulse Oximetry 95 95 Oxygen Delivery Room Air 09/30/22 05:48 09/30/22 08:00 09/30/22 08:35 Temperature 37.1 C Pulse Rate 78 Respiratory Rate 16 Blood Pressure 125/56 L Pulse Oximetry 90 92 Oxygen Deli
[2022-09-30] MEDS: SODIUM CHLORIDE 0.9% IV 1,000 ML 120 ML IV CONT (13:14)
--- NOTE | 2022-09-30 13:17 | PM.PNGS ---
Progress Note: A&P Assessment and Plan (1) Sigmoid diverticulitis: Code(s): K57.32 - Diverticulitis of large intestine without perforation or abscess without bleeding Status: Acute Assessment and Plan: She seems to be responding to the non operative management with IV antibiotics and bowel rest. Her pain is better subjectively and there is less tenderness objectively on abdominal exam. White blood cell count which was never elevated is even lower today. No fever or tachycardia. Continue NPO today but if she continues to improve tomorrow will likely advance to clear liquids. Stay on Zosyn and Flagyl for IV antibiotics. (2) History of total knee arthroplasty: Code(s): Z96.659 - Presence of unspecified artificial knee joint Status: Acute Assessment and Plan: Seen by Dr. Aguilar today. He feels that she is healing appropriately from her recent right knee replacement. He has ordered physical therapy while she is in the hospital and made recommendations for DVT prophylaxis with Lovenox. Subjective Subjective Date/Time Seen: 09/30/22 13:17 Interval history: Patient feels better today. Less abdominal pain which he rates as a 3 or 4 on a scale of 10 when it was 6 or 7 yesterday. She did get up and take a shower today. No bowel movements or flatus yet. Dr. Aguilar has seen her this morning and made some changes to her prophylactic DVT dosing of her Lovenox. He also made recommendations for physical therapy well she is in the hospital. She did get up and take a shower today and has tolerated ice chips without any nausea. She does not have much of an appetite. Review of Systems Review of Systems: The remainder of the review of systems to include constitutional, HEENT, cardiovascular, respiratory, GI, , integumentary, musculoskeletal, endocrine, immunologic, hematologic, psychiatric, and neurologic are all negative except for which is mentioned above in the HPI. Exam Const: General: cooperative, comfortable and no acute distress Resp: Effort & Inspection: normal respiratory effort Auscultation: clear to auscultation bilaterally Cardio: Jugular venous distension: no JVD Rate: regular rate Rhythm: regular rhythm GI: Other: Soft and nondistended. Mild tenderness to deep palpation in suprapubic region. No guarding or diffuse peritoneal signs. Neuro: General: oriented to person, oriented to place and oriented to time Cranial nerves: Yes CN's II-XII intact bilaterally Cognition (Neuro): normal cognition Speech: normal speech Sensory Exam: normal sensation Extrem: Other: Right knee with bruising but only mild swelling. Postop dressing in place. Psych: Appearance: grossly normal Mental Status: mental status grossly normal Attitude: cooperative Thought content: Yes Normal thought content present Insight: Good insight present (Psych) Judgement: Good judgement present (Psych) Objective Data Vital Signs Vital Signs: Vital Signs - 24 hr 09/29/22 14:00 09/29/22 20:00 09/29/22 22:00 Temperature 36.9 C 37.3 C Pulse Rate 75 82 Respiratory Rate 18 17 Blood Pressure 148/64 H 132/56 L Pulse Oximetry 95 95 Oxygen Delivery Room Air 09/30/22 05:48 09/30/22 08:00 09/30/22 08:35 Temperature 37.1 C Pulse Rate 78 Respiratory Rate 16 Blood Pressure 125/56 L Pulse Oximetry 90 92 Oxygen Delivery Room Air Room Air 09/30/22 11:14 Temperature Pulse Rate Respiratory Rate Blood Pressure Pulse Oximetry Oxygen Delivery Room Air Intake/Output Intake/Output: Intake & Output 09/27/22 09/28/22 09/29/22 09/30/22 23:59 23:59 23:59 23:59 Intake Total 2350 390 Output Total 250 1200 Balance 2100 -810 Meds/Results Medications: Active Medications Generic Name Dose Route Start Last Admin Trade Name Freq PRN Reason Stop Dose Admin Dextrose 12.5 gm 09/29/22 12:54 Dextrose 50% 25 Gm/50 Ml Syringe IV PUSH PRN PRN Hypo
[2022-09-30 14:00] VITALS: BP 107/47; PULSE 75; RESP 12; TEMP 36.9; O2SAT 91
[2022-09-30] MEDS: ONDANSETRON INJ 4 MG/2 ML VIAL IV PUSH (17:38)
[2022-09-30] MEDS: ENOXAPARIN 30 MG/0.3 ML SYRINGE SUB-Q (20:31)
[2022-09-30 22:00] VITALS: BP 123/52; PULSE 70; RESP 16; TEMP 36.4; O2SAT 94
[2022-10-01] MEDS: metroNIDAZOLE 500 MG/ISO 100ML 500 MG/100 ML BAG 100 MG IVPB ×4 (00:24→19:29)
[2022-10-01] MEDS: HYDROmorphone HCL INJ (*CRX) 1 MG/ML SYR IV PUSH ×3 (03:47→15:39)
[2022-10-01] MEDS: SODIUM CHLORIDE 0.9% IV 1,000 ML 120 ML IV CONT (03:50)
[2022-10-01] MEDS: PIPERACILLN/TAZ 3.375GM/NS50ML 3.375 GM/50 ML BAG IVPB ×4 (05:01→23:54)
[2022-10-01] MEDS: LEVOTHYROXINE SODIUM INJ 100 MCG/5 ML VIAL 56 MCG IV PUSH (05:37)
[2022-10-01 05:49] LABS: Hematocrit 24.6 % (37.0-47.0); Mean Corpuscular HGB Conc 32.5 g/dl (32-36); Mean Corpuscular Hemoglobin 30.7 pg (26-34); Mean Corpuscular Volume 94.3 fl (80-100); Mean Platelet Volume 8.9 fl (7.4-10.4); Platelet Count Result 311 k/mm3 (150-375); Red Blood Count 2.61 M/mm3 (4.2-5.4); Red Cell Distribution Width 14.3 % (11.5-14.5); White Blood Count 8.2 K/mm3 (4.5-10.0)
[2022-10-01 05:59] LABS: Anion Gap 5 mmol/L (8-16); Blood Urea Nitrogen 12 mg/dL (7-17); Carbon Dioxide 27 mmol/L (22-30); Chloride 100 mmol/L (98-107); Estimated CRCL calculation 73 ml/min; Estimated Glomerular Filt Rate > 60; Glucose 151 mg/dL (65-110); Magnesium 1.9 mg/dL (1.6-2.3); Potassium 3.4 mmol/L (3.4-5.0); Sodium 132 mmol/L (137-145)
[2022-10-01 06:00] VITALS: BP 109/47; PULSE 68; RESP 18; TEMP 36.2; O2SAT 95
[2022-10-01 07:28] LABS: Band Neutrophils Percent 21 % (0-6); Lymphocytes Absolute Manual 0.16 K/mm3 (1.1-4.5); Monocytes Absolute Manual 0.08 K/mm3 (0.1-0.90); Monocytes Percent Manual 1 % (3-9); Neutrophils Absolute Manual 7.95 K/mm3 (1.7-7.2); Neutrophils Percent Manual 76 % (46-73); Nucleated Red Blood Cells 1 %; Total Cells Counted 100
[2022-10-01 07:30] LABS: Burr Cells 1+ (NORMAL); Hypochromasia 1+ (NORMAL); Platelet Estimate Adequate (Adequate); Poikilocytosis 1+ (NORMAL); Schistocytes Rare (NORMAL)
[2022-10-01] MEDS: ENOXAPARIN 30 MG/0.3 ML SYRINGE SUB-Q ×2 (08:14→20:27)
[2022-10-01] MEDS: PANTOPRAZOLE SODIUM IV 40 MG VIAL IV PUSH (08:14)
--- NOTE | 2022-10-01 08:36 | PM.IMPN ---
Progress Note: A&P Assessment and Plan (1) Abscess of sigmoid colon due to diverticulitis: Code(s): K57.20 - Diverticulitis of large intestine with perforation and abscess without bleeding Status: Acute Assessment and Plan: Noted on CT scan. General Surgery following. General surgery advancing diet to clear liquids. Continue IV fluids, pain control and IV zosyn & flagyl. (2) Hyponatremia: Code(s): E87.1 - Hypo-osmolality and hyponatremia Status: Acute Assessment and Plan: 09/30 Sodium 126, but 128 when corrected for hyperglycemia. It was 128 on admission. May have SIADH component. Urine sodium 96, urine creatinine 55.3, urine osmo pending. Continue NS@75 ml/hour. 10/01 Sodium 132 with glucose 150 (3) Insulin dependent diabetes mellitus: Status: Chronic Assessment and Plan: Started on clear liquids. Continue aspart low dose sliding scale. Resume lantus when taking good PO. Hold off on dextrose fluids due to hyponatremia. Accu-checks Q6 hours with hypoglycemia protocol. (4) Hypothyroidism: Qualifiers: Hypothyroidism type: acquired Qualified Code(s): E03.9 - Hypothyroidism, unspecified Code(s): E03.9 - Hypothyroidism, unspecified Status: Chronic Assessment and Plan: Continue levothyroxine. Transition PO when eating. (5) Depression: Qualifiers: Depression Type: major depressive disorder Major depression recurrence: unspecified whether recurrent Psychotic features: without psychotic features Code(s): F32.A - Depression, unspecified Status: Chronic Assessment and Plan: Continue current medications. (6) History of total knee arthroplasty: Qualifiers: Laterality: right Qualified Code(s): Z96.651 - Presence of right artificial knee joint Code(s): Z96.659 - Presence of unspecified artificial knee joint Status: Acute Assessment and Plan: 09/26/22 R TKA. Management per Ortho. Continue PT ordered, pain control with IV while NPO, Lovenox SQ for DVT prophylaxis Plan CODE STATUS: FULL CODE Disposition: full code GI prophylaxis: on PPI daily Antibiotic day: 3 of 10 Time Spent With Patient Time: 25 minutes time spent with patient assessment, patient education, review of labs, vitals and nursing documentation. All questions answered to the best of my ability. Subjective Date/time seen: 10/01/22 08:36 Her abdominal pain is improved and she is passing flatus. She feels like having a BM but only flatus comes out. Her bloating is unchanged. She reports some nausea, but no emesis. Overnight she was given Zofran, but did not feel like this helped. Knee pain is tolerable and she denies paresthesia, calf pain or worsening edema. No shortness of breath, chest pain, dizziness or palpitations. Review of Systems Review of Systems: All systems reviewed & are unremarkable except as noted in HPI and below Exam Narrative: General:?Well-developed, nontoxic-appearing. BMI: 23.3. HEENT:? Pupils equal and round. Sclera anicteric. Moist mucous membranes. Neck:??Supple.? Respiratory:?Lungs are clear to auscultation bilaterally. RR regular and unlabored. Cardiovascular:??Regular rate and rhythm with S1-S2.?No murmurs, gallops or rubs. Gastrointestinal:? Abdomen is soft, round and normoactive bowel sounds. Tender to palpation throughout the lower abdomen, left greater than right. No guarding. Flatus present. Skin:? Warm and dry.? No rash or lesions on limited exam. Multiple scattered tattoos. Extremities:? No cyanosis, clubbing, or edema. Radial and pedal pulses intact. Grossly normal ROM. Musculoskeletal:?Right knee dressing is clean, dry, and intact. Knee is elevated on a pillow. Neurological:? Alert and oriented x4. Cranial nerves 2-12 grossly intact. No gross focal deficits to casual conversation. Psychiatric:??Pleasant and cooperative with normal mood and affect. Objective Data Vital Sig
--- NOTE | 2022-10-01 10:55 | PM.PNGS ---
Progress Note: A&P Assessment and Plan (1) Sigmoid diverticulitis: Code(s): K57.32 - Diverticulitis of large intestine without perforation or abscess without bleeding Status: Acute Assessment and Plan: She continues to improve on IV antibiotics and bowel rest. She is starting to have a little bit of bowel function and so will go ahead started on clear liquids. Hold off on giving her any laxatives for constipation for today. Can you IV antibiotics and supportive care. She seems to be responding well to nonoperative management. Subjective Subjective Date/Time Seen: 10/01/22 10:55 Interval history: Patient feels a little better today. Left lower quadrant pain is decreasing and she has only had to have 2 doses of IV pain medication since yesterday. She has been urinating okay and actually had a very small hard bowel movement. Minimal nausea. No fever. White blood cell count remains normal. Exam Narrative: Abdomen is soft and minimally distended. Very mild tenderness to palpation left lower quadrant suprapubic area. No rebound or masses noted. Objective Data Vital Signs Vital Signs: Vital Signs - 24 hr 09/30/22 11:14 09/30/22 14:00 09/30/22 22:00 Temperature 36.9 C 36.4 C Pulse Rate 75 70 Respiratory Rate 12 16 Blood Pressure 107/47 L 123/52 L Pulse Oximetry 91 94 Oxygen Delivery Room Air 10/01/22 06:00 Temperature 36.2 C L Pulse Rate 68 Respiratory Rate 18 Blood Pressure 109/47 L Pulse Oximetry 95 Oxygen Delivery Intake/Output Intake/Output: Intake & Output 09/28/22 09/29/22 09/30/22 10/02/22 23:59 23:59 23:59 00:59 Intake Total 2350 1970 880 Output Total 250 1600 800 Balance 2100 370 80 Meds/Results Medications: Active Medications Generic Name Dose Route Start Last Admin Trade Name Freq PRN Reason Stop Dose Admin Dextrose 12.5 gm 09/29/22 12:54 Dextrose 50% 25 Gm/50 Ml Syringe IV PUSH PRN PRN Hypoglycemia Protocol Enoxaparin Sodium 30 mg 09/30/22 21:00 10/01/22 08:14 Enoxaparin 30 Mg/0.3 Ml Syringe SUB-Q 30 mg Q12HR AYDEE Administration Glucagon 1 mg 09/29/22 12:54 Glucagon For Inj 1 Mg Vial IM PRN PRN Hypoglycemia Protocol Glucose 15 gm 09/29/22 12:54 Glucose Oral Gel 15 Gm Of Glucse In 37.5 Gm Tube PO PRN PRN Hypoglycemia Protocol Hydromorphone HCl 1 mg 09/29/22 11:23 10/01/22 08:13 Hydromorphone Hcl Inj (*Crx) 1 Mg/Ml Syr IV PUSH 1 mg Q3H PRN Administration Pain Rated 7-10 Metronidazole 500 mg in 100 mls @ 100 mls/hr 09/29/22 18:00 10/01/22 06:18 Flagyl 500 Mg/Iso Soln 100 Ml IVPB 100 mls/hr Q6HR AYDEE Administration Piperacillin/Tazobactam/Dextrose 3.375 gm in 50 mls @ 100 mls/hr 09/29/22 12:00 10/01/22 05:31 Zosyn 3.375 Gm/Ns 50 Ml IVPB Infused Q6HR AYDEE Infusion Dextrose 1,000 mls @ 100 mls/hr 09/29/22 12:54 Dextrose 5% 1,000 Ml IVPB PRN PRN Hypoglycemia Protocol Acetaminophen 650 mg in 65 mls @ 260 mls/hr 09/30/22 10:45 10/01/22 05:52 Ofirmev 650 Mg Ivpb IVPB 10/02/22 06:14 Infused Q6HR AYDEE Infusion Sodium Chloride 1,000 mls @ 120 mls/hr 09/30/22 11:20 10/01/22 03:50 Normal Saline Iv IV CONT 120 mls/hr .Q8H20M AYDEE Administration Insulin Aspart 2 - 5 units 09/30/22 18:00 10/01/22 05:50 Insulin Aspart (*Bkc) 100 Units/Ml SUB-Q Not Given Q6HR AYDEE Protocol Levothyroxine Sodium 56 mcg 09/30/22 06:30 10/01/22 05:37 Levothyroxine Sodium Inj 100 Mcg/5 Ml Vial IV PUSH 56 mcg DAILY@0630 AYDEE Administration Ondansetron HCl 4 mg 09/30/22 17:23 09/30/22 17:38 Ondansetron Inj 4 Mg/2 Ml Vial IV PUSH 4 mg Q6H PRN Administration Nausea And Vomiting Pantoprazole Sodium 40 mg 09/29/22 11:30 10/01/22 08:14 Pantoprazole Sodium Iv 40 Mg Vial IV PUSH 40 mg QAM AYDEE Administration Radiology Results: ITS Impressions Abdomen X-Ray 09/29/22 06:59 Impr
[2022-10-01] MEDS: SODIUM CHLORIDE 0.9% IV 1,000 ML 75 ML IV CONT (12:09)
[2022-10-01 14:00] VITALS: BP 137/55; PULSE 81; RESP 18; TEMP 36.3; O2SAT 97
[2022-10-01] MEDS: PROCHLORPERAZINE EDISYLATE 10 MG/2 ML VIAL IV PUSH (15:39)
--- NOTE | 2022-10-01 17:34 | PC.NURSE ---
Addendum entered by Destini Okeefe RN 10/01/22 23:42: 2300 126 Original Note: POC Blood Glucose not uploading to chart. These are manually entered from the glucometer readings: 09/29/2022 [id number] 5747 175 2323 206 09/30/2022 0549 202 5675 393 4726 167 6545 150 0329 140 10/01/2022 0540 152 8815 449 5041 164
--- NOTE | 2022-10-01 19:29 | PC.NURSE ---
Scanner stopped working duringmed admin. Manually entered flagyl medication.
[2022-10-01 20:00] VITALS: PULSE 81; RESP 18; O2SAT 97
[2022-10-01 22:00] VITALS: BP 128/55; PULSE 72; RESP 18; TEMP 36.4; O2SAT 95
[2022-10-02] MEDS: metroNIDAZOLE 500 MG/ISO 100ML 500 MG/100 ML BAG 100 MG IVPB ×4 (00:40→19:22)
[2022-10-02 05:45] VITALS: BP 163/63; PULSE 74; RESP 16; TEMP 36.8; O2SAT 98
[2022-10-02] MEDS: SODIUM CHLORIDE 0.9% IV 1,000 ML 75 ML IV CONT (05:46)
[2022-10-02] MEDS: LEVOTHYROXINE SODIUM INJ 100 MCG/5 ML VIAL 56 MCG IV PUSH (05:46)
[2022-10-02 06:01] LABS: Basophils Percent Auto 0.2 % (0.2-1.2); Eosinophils Absolute Auto 0.2 K/mm3 (0-0.3); Eosinophils Percent Auto 1.4 % (0-4.4); Hemoglobin 7.8 g/dL (12.0-15.0); Immature Granulocyte Absolute 0.08 K/mm3 (0.00-0.031); Immature Granulocyte Percent A 0.7 % (0-0.5); Lymphocytes Absolute Auto 0.64 K/mm3 (0.9-3.2); Lymphocytes Percent Auto 5.9 % (18.3-44.2); Mean Corpuscular HGB Conc 32.5 g/dl (32-36); Mean Corpuscular Hemoglobin 30.1 pg (26-34); Mean Corpuscular Volume 92.7 fl (80-100); Monocytes Absolute Auto 0.4 K/mm3 (0.1-0.6); Neutrophils Absolute Auto 9.5 K/mm3 (1.3-6.7); Neutrophils Percent Auto 87.8 % (45.5-73.1); Platelet Count Result 352 k/mm3 (150-375); Red Blood Count 2.59 M/mm3 (4.2-5.4); Red Cell Distribution Width 14.2 % (11.5-14.5); White Blood Count 10.9 K/mm3 (4.5-10.0)
[2022-10-02] MEDS: PIPERACILLN/TAZ 3.375GM/NS50ML 3.375 GM/50 ML BAG IVPB ×4 (06:05→23:30)
[2022-10-02 06:22] LABS: Anion Gap 4 mmol/L (8-16); Blood Urea Nitrogen 11 mg/dL (7-17); Calcium 7.4 mg/dL (8.4-10.2); Carbon Dioxide 27 mmol/L (22-30); Chloride 101 mmol/L (98-107); Estimated CRCL calculation 102 ml/min; Estimated Glomerular Filt Rate > 60; Glucose 132 mg/dL (65-110); Sodium 132 mmol/L (137-145)
--- NOTE | 2022-10-02 08:22 | PC.NURSE ---
Pt's 0800 blood glucose 150. Glucometer still not transferring to pt chart.
[2022-10-02] MEDS: ENOXAPARIN 30 MG/0.3 ML SYRINGE SUB-Q (08:34)
[2022-10-02] MEDS: PANTOPRAZOLE SODIUM IV 40 MG VIAL IV PUSH (08:34)
[2022-10-02] MEDS: MAGNESIUM SULF 2 GM/WATER 50ML 2 GM/50 ML BAG IVPB (11:32)
[2022-10-02] MEDS: POTASSIUM CHLORIDE INJ 40 MEQ in SODIUM CHLORIDE 0.9% IV 500 ML 130 MEQ IVPB (11:32)
--- NOTE | 2022-10-02 12:10 | PM.PNORT ---
Subjective Subjective Date/Time Seen: 10/02/22 12:10 patient is 1 week out from right total knee arthroplasty. her abdominal symptoms seem to be moving. White count did go up slightly to 10.3 to the. Hemoglobin is 7.8. Patient's knee looks very good. She has minimal swelling in the knee. Range of motion is from 0 to 115?. Overall she states that her pain is very tolerable at this point. I think due to the fact that her pain is well controlled and she is overall doing well we will continue with see pain regimen. She did tolerate clear liquids for breakfast this morning. They are advancing her diet at this point. Objective Data Vital Signs Vital Signs: Vital Signs - 24 hr 10/01/22 14:00 10/01/22 20:00 10/01/22 22:00 Temperature 36.3 C L 36.4 C Pulse Rate 81 81 72 Respiratory Rate 18 18 18 Blood Pressure 137/55 L 128/55 L Pulse Oximetry 97 97 95 Oxygen Delivery Room Air 10/02/22 05:45 10/02/22 08:00 Temperature 36.8 C Pulse Rate 74 Respiratory Rate 16 Blood Pressure 163/63 H Pulse Oximetry 98 Oxygen Delivery Room Air Intake/Output Intake/Output: Intake & Output 09/29/22 09/30/22 10/01/22 10/02/22 22:59 22:59 23:59 23:59 Intake Total 2125 Output Total 500 Balance 1625 Meds/Results Medications: Active Medications Generic Name Dose Route Start Last Admin Trade Name Freq PRN Reason Stop Dose Admin Apixaban 2.5 mg 10/02/22 21:00 Apixaban 2.5 Mg Tablet PO 10/14/22 20:59 Q12HR AYDEE Dextrose 12.5 gm 09/29/22 12:54 Dextrose 50% 25 Gm/50 Ml Syringe IV PUSH PRN PRN Hypoglycemia Protocol Enoxaparin Sodium 30 mg 09/30/22 21:00 10/02/22 08:34 Enoxaparin 30 Mg/0.3 Ml Syringe SUB-Q 30 mg Q12HR AYDEE Administration Glucagon 1 mg 09/29/22 12:54 Glucagon For Inj 1 Mg Vial IM PRN PRN Hypoglycemia Protocol Glucose 15 gm 09/29/22 12:54 Glucose Oral Gel 15 Gm Of Glucse In 37.5 Gm Tube PO PRN PRN Hypoglycemia Protocol Hydromorphone HCl 1 mg 09/29/22 11:23 10/01/22 15:39 Hydromorphone Hcl Inj (*Crx) 1 Mg/Ml Syr IV PUSH 1 mg Q3H PRN Administration Pain Rated 7-10 Metronidazole 500 mg in 100 mls @ 100 mls/hr 09/29/22 18:00 10/02/22 08:41 Flagyl 500 Mg/Iso Soln 100 Ml IVPB Infused Q6HR AYDEE Infusion Piperacillin/Tazobactam/Dextrose 3.375 gm in 50 mls @ 100 mls/hr 09/29/22 12:00 10/02/22 06:32 Zosyn 3.375 Gm/Ns 50 Ml IVPB Infused Q6HR AYDEE Infusion Dextrose 1,000 mls @ 100 mls/hr 09/29/22 12:54 Dextrose 5% 1,000 Ml IVPB PRN PRN Hypoglycemia Protocol Sodium Chloride 1,000 mls @ 75 mls/hr 09/30/22 11:20 10/02/22 11:39 Normal Saline Iv IV CONT 0 mls/hr .[id number] AYDEE Infusion Acetaminophen 650 mg in 65 mls @ 260 mls/hr 10/02/22 12:00 Ofirmev 650 Mg Ivpb IVPB 10/04/22 06:14 Q6HR AYDEE Potassium Chloride 40 meq/ 520 mls @ 130 mls/hr 10/02/22 08:45 10/02/22 11:32 Sodium Chloride IVPB 10/02/22 12:44 130 mls/hr ONCE ONE Administration Insulin Aspart 2 - 5 units 10/02/22 08:00 10/02/22 08:22 Insulin Aspart (*Bkc) 100 Units/Ml SUB-Q Not Given [facility]ID[facility] Protocol Levothyroxine Sodium 56 mcg 09/30/22 06:30 10/02/22 05:46 Levothyroxine Sodium Inj 100 Mcg/5 Ml Vial IV PUSH 56 mcg DAILY@0630 AYDEE Administration Pantoprazole Sodium 40 mg 09/29/22 11:30 10/02/22 08:34 Pantoprazole Sodium Iv 40 Mg Vial IV PUSH 40 mg QAM AYDEE Administration Polyethylene Glycol 238 gm 10/02/22 13:00 Polyethylene Glycol 3350 238 Gm Bottle PO 10/02/22 13:01 ONCE ONE Prochlorperazine Edisylate 10 mg 10/01/22 11:12 03/12/23 15:39 Prochlorperazine Edisylate 10 Mg/2 Ml Vial IV PUSH 10 mg Q6H PRN Administration Nausea And Vomiting Radiology Results: ITS Impressions Abdomen X-Ray 09/29/22 06:59 Impression: Nonspecific bowel gas pattern. Abdomen/Pelvis CT 09/29/22 08:24 IMPRESSION:
[2022-10-02 12:19] LABS: Hematocrit 27.9 % (37.0-47.0); Hemoglobin 9.1 g/dL (12.0-15.0)
[2022-10-02] MEDS: INSULIN ASPART (*BKC) 100 UNITS/ML SUB-Q ×2 (12:27→18:39)
[2022-10-02 12:36] LABS: Iron < 10 ug/dL (37-170)
--- NOTE | 2022-10-02 12:38 | PM.PNGS ---
Progress Note: A&P Assessment and Plan (1) Sigmoid diverticulitis: Code(s): K57.32 - Diverticulitis of large intestine without perforation or abscess without bleeding Status: Acute Assessment and Plan: She is clinically improving with IV antibiotics. Continue IV Zosyn and metronidazole. Advanced to full liquids today. Will continue to advance to a low fiber diet if tolerating fulls. This is her first episode of diverticulitis. I have consulted the Dietitian for pt education on low vs high fiber diet. Potassium 3.0 this morning, replaced with 40 meq KCL IV. Noted that WBC went up slightly to 10.9 today, she is afebrile and clinically improving, repeat labs tomorrow. Plan I have discussed the patient's case and plan of care with Dr. Go. Subjective Subjective Date/Time Seen: 10/02/22 12:38 Patient reports: no new complaints, feels better, pain is less, tolerating liquids well, flatus, bowel movement and afebrile Interval history: This is a 77 yo F who presented with perforated sigmoid diverticulitis with small perisigmoid abscesses. Chart reviewed. Patient doing well today. She had clears for breakfast and just finished eating a full liquid tray for lunch. No nausea or vomiting. Still feels bloated, but improved. Still has some mild LLQ abdominal pain, but significantly improved since admission. She has had 2 bowel movements today. No other complaints at this time. Review of Systems Review of Systems: All systems reviewed & are unremarkable except as noted in HPI and below Exam Const: General: no acute distress Orientation/consciousness: patient oriented x3 GI: Inspection: non-distended GI Palp: Yes Soft to palpation, Yes Tenderness to palpation present (GI) (very mild TTP in LLQ), No Guarding due to palpation present (GI) and No Rebound tenderness present Percussion: Yes normal to percussion Auscultation: normal bowel sounds Objective Data Vital Signs Vital Signs: Vital Signs - 24 hr 10/01/22 14:00 10/01/22 20:00 10/01/22 22:00 Temperature 97.4 F L 97.6 F Pulse Rate 81 81 72 Respiratory Rate 18 18 18 Blood Pressure 137/55 L 128/55 L Pulse Oximetry 97 97 95 Oxygen Delivery Room Air 10/02/22 05:45 10/02/22 08:00 Temperature 98.3 F Pulse Rate 74 Respiratory Rate 16 Blood Pressure 163/63 H Pulse Oximetry 98 Oxygen Delivery Room Air Intake/Output Intake/Output: Intake & Output 09/29/22 09/30/22 10/01/22 10/02/22 22:59 22:59 23:59 23:59 Intake Total 2125 Output Total 500 Balance 1625 Meds/Results Medications: Active Medications Generic Name Dose Route Start Last Admin Trade Name Freq PRN Reason Stop Dose Admin Apixaban 2.5 mg 10/02/22 21:00 Apixaban 2.5 Mg Tablet PO 10/14/22 20:59 Q12HR AYDEE Dextrose 12.5 gm 09/29/22 12:54 Dextrose 50% 25 Gm/50 Ml Syringe IV PUSH PRN PRN Hypoglycemia Protocol Enoxaparin Sodium 30 mg 09/30/22 21:00 10/02/22 08:34 Enoxaparin 30 Mg/0.3 Ml Syringe SUB-Q 30 mg Q12HR AYDEE Administration Glucagon 1 mg 09/29/22 12:54 Glucagon For Inj 1 Mg Vial IM PRN PRN Hypoglycemia Protocol Glucose 15 gm 09/29/22 12:54 Glucose Oral Gel 15 Gm Of Glucse In 37.5 Gm Tube PO PRN PRN Hypoglycemia Protocol Hydromorphone HCl 1 mg 09/29/22 11:23 10/01/22 15:39 Hydromorphone Hcl Inj (*Crx) 1 Mg/Ml Syr IV PUSH 1 mg Q3H PRN Administration Pain Rated 7-10 Metronidazole 500 mg in 100 mls @ 100 mls/hr 09/29/22 18:00 10/02/22 08:41 Flagyl 500 Mg/Iso Soln 100 Ml IVPB Infused Q6HR AYDEE Infusion Piperacillin/Tazobactam/Dextrose 3.375 gm in 50 mls @ 100 mls/hr 09/29/22 12:00 10/02/22 06:32 Zosyn 3.375 Gm/Ns 50 Ml IVPB Infused Q6HR AYDEE Infusion Dextrose 1,000 mls @ 100 mls/hr 09/29/22 12:54 Dextrose 5% 1,000 Ml IVPB PRN PRN Hypoglycemia Protocol Sodium Chloride 1,000 mls @ 75 mls/hr 09/30/22 11:20 10/02/22 1
[2022-10-02 12:54] LABS: Osmolality, Urine 526 mOsm/kg (50-1200)
--- NOTE | 2022-10-02 13:05 | PM.IMPN ---
Progress Note: A&P Assessment and Plan (1) Sigmoid diverticulitis: Code(s): K57.32 - Diverticulitis of large intestine without perforation or abscess without bleeding Status: Acute Assessment and Plan: Noted on CT scan. General Surgery following. General surgery advancing diet to full liquids and possible low residue diet for dinner. Continue IV fluids, pain control and IV zosyn & flagyl. (2) Abscess of sigmoid colon due to diverticulitis: Code(s): K57.20 - Diverticulitis of large intestine with perforation and abscess without bleeding Status: Acute Assessment and Plan: As above (3) Hyponatremia: Code(s): E87.1 - Hypo-osmolality and hyponatremia Status: Acute Assessment and Plan: 09/30 Sodium 126, but 128 when corrected for hyperglycemia. It was 128 on admission. May have SIADH component. Urine sodium 96, urine creatinine 55.3, urine osmo pending. Continue NS@75 ml/hour. 10/01 Sodium 132 with glucose 150 10/02 Stable. (4) Insulin dependent diabetes mellitus: Status: Chronic Assessment and Plan: Started on clear liquids. Continue aspart low dose sliding scale. Resume lantus when taking good PO. Hold off on dextrose fluids due to hyponatremia. Accu-checks Q6 hours with hypoglycemia protocol. (5) Hypothyroidism: Qualifiers: Hypothyroidism type: acquired Qualified Code(s): E03.9 - Hypothyroidism, unspecified Code(s): E03.9 - Hypothyroidism, unspecified Status: Chronic Assessment and Plan: Continue levothyroxine. Transition PO when eating. (6) Depression: Qualifiers: Depression Type: major depressive disorder Major depression recurrence: unspecified whether recurrent Psychotic features: without psychotic features Code(s): F32.A - Depression, unspecified Status: Chronic Assessment and Plan: Continue current medications. (7) History of total knee arthroplasty: Qualifiers: Laterality: right Qualified Code(s): Z96.651 - Presence of right artificial knee joint Code(s): Z96.659 - Presence of unspecified artificial knee joint Status: Acute Assessment and Plan: 09/26/22 R TKA. Management per Ortho. Continue PT ordered, pain control with IV while NPO, Lovenox SQ for DVT prophylaxis (8) Anemia: Qualifiers: Anemia type: unspecified type Qualified Code(s): D64.9 - Anemia, unspecified Code(s): D64.9 - Anemia, unspecified Status: Acute Assessment and Plan: 10/02/22 Hgb 7.8. Was 9.7 on admission and 9.4 postop. No melena, hematochezia, hematemesis, bleeding from knee incision. B12 and folate within normal limits, Ferritin normal 128, serum iron <10, TIBC slightly low 224, and %saturation <4%. Check transferrin. RDW normal. MCV, MCH, MCHC within normal limits. Normocytic, normochromic anemia- Likely early iron deficiency anemia from recent surgery. Plan CODE STATUS: FULL CODE Disposition: full code GI prophylaxis: on PPI daily Antibiotic day: 4 of 10 Time Spent With Patient Time with patient: 25 - 35 minutes Subjective Date/time seen: 10/02/22 13:05 Interval history: She reports some loose stool, but no melena or hematochezia. No nausea or emesis. She denies dizziness, palpitations, shortness of breath or chest pain. She knows she needs to walk more. Review of Systems Review of Systems: All systems reviewed & are unremarkable except as noted in HPI and below Exam Narrative: General:?Well-developed, nontoxic-appearing. HEENT:? Pupils equal and round. Sclera anicteric. Moist mucous membranes. Neck:??Supple.? Respiratory:?Lungs are clear to auscultation bilaterally. RR regular and unlabored. Cardiovascular:??Regular rate and rhythm with S1-S2.?No murmurs, gallops or rubs. Gastrointestinal:? Abdomen is soft, round and normoactive bowel sounds. Minimal tenderness to palpation LLQ. No guarding. Flatus present. Skin:?
[2022-10-02 13:31] LABS: Percent Iron Saturation < 4 % (20-50)
[2022-10-02 13:41] LABS: Folic Acid 5.1 ng/mL (2.76->20); Vitamin B12 > 1000.0 pg/mL (239-931)
[2022-10-02 14:13] VITALS: BP 147/74; PULSE 84; RESP 18; TEMP 36.2; O2SAT 97
[2022-10-02] MEDS: polyethylene glycoL 3350 238 GM BOTTLE PO (14:19)
[2022-10-02 15:55] LABS: Glucose Point of Care 230 mg/dl (65-105)
[2022-10-02 15:55] LABS: Glucose Point of Care 191 mg/dl (65-105)
[2022-10-02 15:56] LABS: Glucose Point of Care 206 mg/dl (65-105)
[2022-10-02 15:56] LABS: Glucose Point of Care 167 mg/dl (65-105)
[2022-10-02 15:56] LABS: Glucose Point of Care 140 mg/dl (65-105)
[2022-10-02 15:56] LABS: Glucose Point of Care 141 mg/dl (65-105)
[2022-10-02 15:56] LABS: Glucose Point of Care 202 mg/dl (65-105)
[2022-10-02 15:56] LABS: Glucose Point of Care 175 mg/dl (65-105)
[2022-10-02 15:56] LABS: Glucose Point of Care 148 mg/dl (65-105)
[2022-10-02 15:56] LABS: Glucose Point of Care 152 mg/dl (65-105)
[2022-10-02 15:57] LABS: Glucose Point of Care 150 mg/dl (65-105)
[2022-10-02 15:57] LABS: Glucose Point of Care 164 mg/dl (65-105)
[2022-10-02 15:57] LABS: Glucose Point of Care 128 mg/dl (65-105)
[2022-10-02] MEDS: APIXABAN 2.5 MG TABLET PO (20:32)
[2022-10-02 21:07] VITALS: BP 158/67; PULSE 72; RESP 17; TEMP 36.9; O2SAT 99
[2022-10-03] VITALS (11 sets, daily range): BP systolic 150–179; BP diastolic 60–78; PULSE 63–87; RESP 16–22; TEMP 36.3–37.2; O2SAT 96–100
[2022-10-03] MEDS: PROCHLORPERAZINE EDISYLATE 10 MG/2 ML VIAL IV PUSH (00:11)
[2022-10-03] MEDS: metroNIDAZOLE 500 MG/ISO 100ML 500 MG/100 ML BAG 100 MG IVPB ×5 (00:11→23:49)
[2022-10-03] MEDS: MELATONIN 5 MG TABLET 10 MG PO (00:11)
[2022-10-03] MEDS: PIPERACILLN/TAZ 3.375GM/NS50ML 3.375 GM/50 ML BAG IVPB ×4 (05:03→23:45)
[2022-10-03] MEDS: LEVOTHYROXINE SODIUM INJ 100 MCG/5 ML VIAL 56 MCG IV PUSH (05:37)
[2022-10-03 06:56] LABS: Basophils Absolute Auto 0.1 K/mm3 (0.0-0.1); Basophils Percent Auto 0.5 % (0.2-1.2); Eosinophils Absolute Auto 0.2 K/mm3 (0-0.3); Eosinophils Percent Auto 1.5 % (0-4.4); Hematocrit 23.6 % (37.0-47.0); Hemoglobin 7.8 g/dL (12.0-15.0); Immature Granulocyte Absolute 0.28 K/mm3 (0.00-0.031); Immature Granulocyte Percent A 2.2 % (0-0.5); Lymphocytes Absolute Auto 0.97 K/mm3 (0.9-3.2); Lymphocytes Percent Auto 7.7 % (18.3-44.2); Mean Corpuscular HGB Conc 33.1 g/dl (32-36); Mean Corpuscular Hemoglobin 30.7 pg (26-34); Mean Corpuscular Volume 92.9 fl (80-100); Mean Platelet Volume 8.6 fl (7.4-10.4); Monocytes Absolute Auto 0.6 K/mm3 (0.1-0.6); Monocytes Percent Auto 4.4 % (2.6-8.5); Neutrophils Absolute Auto 10.5 K/mm3 (1.3-6.7); Neutrophils Percent Auto 83.7 % (45.5-73.1); Platelet Count Result 394 k/mm3 (150-375); Red Blood Count 2.54 M/mm3 (4.2-5.4); Red Cell Distribution Width 14.2 % (11.5-14.5); White Blood Count 12.6 K/mm3 (4.5-10.0)
[2022-10-03 07:10] LABS: Anion Gap 3 mmol/L (8-16); Blood Urea Nitrogen 6 mg/dL (7-17); Calcium 7.4 mg/dL (8.4-10.2); Carbon Dioxide 29 mmol/L (22-30); Chloride 103 mmol/L (98-107); Estimated CRCL calculation 102 ml/min; Estimated Glomerular Filt Rate > 60; Glucose 163 mg/dL (65-110); Potassium 2.6 mmol/L (3.4-5.0); Sodium 135 mmol/L (137-145)
[2022-10-03 07:12] LABS: Transferrin 116 mg/dL (206-381)
[2022-10-03 07:50] LABS: Magnesium 2.1 mg/dL (1.6-2.3)
[2022-10-03] MEDS: POTASSIUM CHLORIDE 20 MEQ TABLET 80 MEQ PO (08:05)
[2022-10-03] MEDS: APIXABAN 2.5 MG TABLET PO (08:06)
[2022-10-03] MEDS: PANTOPRAZOLE SODIUM IV 40 MG VIAL IV PUSH (08:06)
[2022-10-03] MEDS: POTASSIUM CHLORIDE INJ 40 MEQ in SODIUM CHLORIDE 0.9% IV 500 ML 130 MEQ IVPB (08:28)
--- NOTE | 2022-10-03 08:47 | WPDPN ---
Progress Note: A&P Assessment and Plan (1) Sigmoid diverticulitis: Code(s): K57.32 - Diverticulitis of large intestine without perforation or abscess without bleeding Status: Acute Assessment and Plan: Clinically she has been fairly stable on abdominal exam. She had been tolerating diet which was advanced to low-fiber yesterday and having bowel movements. Her white blood cell count has elevated to 12,600 today her about 10,000 yesterday. I would be concerned that she has developed an abscess in her pelvis. Will need to repeat a CT scan abdomen pelvis IV contrast today. (2) Hypokalemia due to excessive gastrointestinal loss of potassium: Code(s): E87.6 - Hypokalemia Status: Acute Assessment and Plan: Her potassium is low. He was given potassium supplementation yesterday as well. We will give her more potassium today IV. This is most likely due to GI losses she has been having diarrhea. Subjective Date/time seen: 10/03/22 08:47 Interval history: Patient has remained clinically stable. She still has some mild suprapubic and left lower quadrant abdominal pain but is no worse than yesterday. She has been having multiple loose and diarrhea bowel movements but she was given a laxative yesterday. No fever and hemodynamically stable. White blood cell count is elevated to 12,600 today from 10,000 yesterday. Review of Systems Review of Systems: I have discussed the patient with Kellen Serrano APN and agree with the documented note below and care plan. Exam Narrative: The abdomen is soft and mildly distended. She still has mild tenderness to deep palpation the left lower quadrant and suprapubic regions. No rebound tenderness noted. Resp: Effort & Inspection: normal respiratory effort Auscultation: clear to auscultation bilaterally Cardio: Rate: regular rate Rhythm: regular rhythm Neuro: Speech: normal speech Sensory Exam: normal sensation Psych: Mental Status: mental status grossly normal Affect: normal affect Objective Data Vital Signs Vital Signs: Vital Signs - 24 hr 10/02/22 14:13 10/02/22 21:07 10/03/22 04:51 Temperature 36.2 C L 36.9 C 36.7 C Pulse Rate 84 72 63 Respiratory Rate 18 17 17 Blood Pressure 147/74 H 158/67 H 152/60 H Pulse Oximetry 97 99 98 Intake/Output Intake/Output: Intake & Output 09/30/22 10/01/22 10/02/22 10/03/22 22:59 23:59 23:59 23:59 Intake Total 4160 765 Output Total 1800 Balance 2360 765 Meds/Results Medications: Active Medications Generic Name Dose Route Start Last Admin Trade Name Freq PRN Reason Stop Dose Admin Apixaban 2.5 mg 10/02/22 21:00 10/03/22 08:06 Apixaban 2.5 Mg Tablet PO 10/14/22 20:59 2.5 mg Q12HR AYDEE Administration Dextrose 12.5 gm 09/29/22 12:54 Dextrose 50% 25 Gm/50 Ml Syringe IV PUSH PRN PRN Hypoglycemia Protocol Enoxaparin Sodium 30 mg 09/30/22 21:00 10/02/22 08:34 Enoxaparin 30 Mg/0.3 Ml Syringe SUB-Q 30 mg Q12HR AYDEE Administration Glucagon 1 mg 09/29/22 12:54 Glucagon For Inj 1 Mg Vial IM PRN PRN Hypoglycemia Protocol Glucose 15 gm 09/29/22 12:54 Glucose Oral Gel 15 Gm Of Glucse In 37.5 Gm Tube PO PRN PRN Hypoglycemia Protocol Hydromorphone HCl 1 mg 09/29/22 11:23 10/01/22 15:39 Hydromorphone Hcl Inj (*Crx) 1 Mg/Ml Syr IV PUSH 1 mg Q3H PRN Administration Pain Rated 7-10 Metronidazole 500 mg in 100 mls @ 100 mls/hr 09/29/22 18:00 10/03/22 06:37 Flagyl 500 Mg/Iso Soln 100 Ml IVPB Infused Q6HR AYDEE Infusion Piperacillin/Tazobactam/Dextrose 3.375 gm in 50 mls @ 100 mls/hr 09/29/22 12:00 10/03/22 05:33 Zosyn 3.375 Gm/Ns 50 Ml IVPB Infused Q6HR AYDEE Infusion Dextrose 1,000 mls @ 100 mls/hr 09/29/22 12:54 Dextrose 5% 1,000 Ml IVPB PRN PRN Hypoglycemia Protocol Acetaminophen 650 mg in 65 mls @ 260 mls/hr 10/02/22 12:00 10/03/22 05:18 [facility] 650 M
--- NOTE | 2022-10-03 09:14 | PCPTNOTE ---
Attempted to see patient for PT, however patient declined. Patient reported she just got back in bed and cleaned up with nursing, and did not want to get back up at this time.
--- NOTE | 2022-10-03 09:28 | ECG_ITS ---
Measurements Intervals [place] Rate: 70 P: 40 MN: 135 QRS: 5 QRSD: 90 T: 75 QT: 403 QTc: 435 Interpretive Statements SINUS RHYTHM BORDERLINE ST-T WAVE ABNORMALITY- ANTEROLAT/HIGH LAT LEADS CONSIDER INFERIOR INFARCT, AGE INDETERMINATE BASELINE ARTIFACT- I, II, AVR, AVL, AVF ABNORMAL ECG COMPARED TO ECG 09/11/2022 10:39:38 SINUS RHYTHM NOW PRESENT Electronically Signed On 10-03-2022 10:04:56 CDT by Shade Brothers D.O.
--- NOTE | 2022-10-03 09:29 | PM.IMPN ---
Progress Note: A&P Assessment and Plan (1) Sigmoid diverticulitis: Code(s): K57.32 - Diverticulitis of large intestine without perforation or abscess without bleeding Status: Acute Assessment and Plan: Noted on CT scan. General Surgery following. General surgery advancing diet to full liquids and possible low residue diet for dinner. Continue IV fluids, pain control and IV zosyn & flagyl. 10/03 CT scan showed extensive wall thickening and inflammatory change of the sigmoid colon consistent with diverticulitis plus moderate pneumoperitoneum from previous exam and worsening/ enlarging abscess in the pelvis 6.3 x 5.0 x 3.5 cm deep pelvic abscess that communicates with more crescent abscess in the superior left pelvis measuring 7.5 x 2.0 cm. IR placement of percutaneous drain planned for 10/04 (2) Abscess of sigmoid colon due to diverticulitis: Code(s): K57.20 - Diverticulitis of large intestine with perforation and abscess without bleeding Status: Acute Assessment and Plan: As above (3) Hyponatremia: Code(s): E87.1 - Hypo-osmolality and hyponatremia Status: Acute Assessment and Plan: 09/30 Sodium 126, but 128 when corrected for hyperglycemia. It was 128 on admission. May have SIADH component. Urine sodium 96, urine creatinine 55.3, urine osmo pending. Continue NS@75 ml/hour. 10/01 Sodium 132 with glucose 150 10/02 Stable. (4) Insulin dependent diabetes mellitus: Status: Chronic Assessment and Plan: Started on clear liquids. Continue aspart low dose sliding scale. Resume lantus when taking good PO. Hold off on dextrose fluids due to hyponatremia. Accu-checks Q6 hours with hypoglycemia protocol. (5) Hypothyroidism: Qualifiers: Hypothyroidism type: acquired Qualified Code(s): E03.9 - Hypothyroidism, unspecified Code(s): E03.9 - Hypothyroidism, unspecified Status: Chronic Assessment and Plan: Continue levothyroxine. (6) Depression: Qualifiers: Depression Type: major depressive disorder Major depression recurrence: unspecified whether recurrent Psychotic features: without psychotic features Code(s): F32.A - Depression, unspecified Status: Chronic Assessment and Plan: Continue current medications. (7) History of total knee arthroplasty: Qualifiers: Laterality: right Qualified Code(s): Z96.651 - Presence of right artificial knee joint Code(s): Z96.659 - Presence of unspecified artificial knee joint Status: Acute Assessment and Plan: 09/26/22 R TKA. Management per Ortho. Continue PT ordered, pain control with IV while NPO, Lovenox SQ for DVT prophylaxis (8) Anemia: Qualifiers: Anemia type: unspecified type Qualified Code(s): D64.9 - Anemia, unspecified Code(s): D64.9 - Anemia, unspecified Status: Acute Assessment and Plan: 10/02/22 Hgb 7.8. Was 9.7 on admission and 9.4 postop. No melena, hematochezia, hematemesis, bleeding from knee incision. B12 and folate within normal limits, Ferritin normal 128, serum iron <10, TIBC slightly low 224, and %saturation <4%. transferrin 116 RDW normal. MCV, MCH, MCHC within normal limits. Normocytic, normochromic anemia- Likely early iron deficiency anemia from recent surgery. check reticulocyte count. 10/03 Hgb 7.8 again this morning. give 1 unit PRBC (9) Hypokalemia due to excessive gastrointestinal loss of potassium: Code(s): E87.6 - Hypokalemia Status: Acute Assessment and Plan: K2.6, secondary to GI loss. Give 80 mEQ PO KCl and 40 mEQ IV KCl. Mag 2.1. Check EKG. Add telemetry to monitor for ectopy and arrhythmia. Repeat K at 1400 3.3 give additional 40 mEq p.o. x1 now and repeat chemistry in the morning (10) Hypocalcemia: Code(s): E83.51 - Hypocalcemia Status: Acute Assessment and Plan: Calcium 7.4. Monitor telemetry. give 2 grams calcium gluconate. adri
[2022-10-03 09:44] LABS: Immature Reticulocyte Fraction 14.1 % (3.0-15.9); Reticulocyte Hemoglobin Conten 19.2 pg (28.2-35.7); Reticulocyte Percent 1.95 % (0.7-4.3); Reticulocytes Absolute 0.05 B/L (32.2-175.7)
--- NOTE | 2022-10-03 12:04 | PM.PNGS ---
Subjective Subjective Date/Time Seen: 10/03/22 12:04 Patient reports: no new complaints, pain is less, flatus and afebrile Interval history: Patient reports abdominal pain continues to improve daily. She still has some LLQ and suprapubic tenderness, but not having any pain at this time. She is tolerating a low fiber diet. No N/V. She was given Miralax yesterday and has since had multiple loose bowel movements yesterday and today. Objective Data Vital Signs Vital Signs: Vital Signs - 24 hr 10/02/22 14:13 10/02/22 21:07 10/03/22 04:51 Temperature 97.2 F L 98.5 F 98.0 F Pulse Rate 84 72 63 Respiratory Rate 18 17 17 Blood Pressure 147/74 H 158/67 H 152/60 H Pulse Oximetry 97 99 98 Intake/Output Intake/Output: Intake & Output 09/30/22 10/01/22 10/02/22 10/03/22 22:59 23:59 23:59 23:59 Intake Total 4160 965 Output Total 1800 Balance 2360 965 Meds/Results Medications: Active Medications Generic Name Dose Route Start Last Admin Trade Name Freq PRN Reason Stop Dose Admin Apixaban 2.5 mg 10/02/22 21:00 10/03/22 08:06 Apixaban 2.5 Mg Tablet PO 10/14/22 20:59 2.5 mg Q12HR AYDEE Administration Dextrose 12.5 gm 09/29/22 12:54 Dextrose 50% 25 Gm/50 Ml Syringe IV PUSH PRN PRN Hypoglycemia Protocol Enoxaparin Sodium 30 mg 09/30/22 21:00 10/02/22 08:34 Enoxaparin 30 Mg/0.3 Ml Syringe SUB-Q 30 mg Q12HR AYDEE Administration Glucagon 1 mg 09/29/22 12:54 Glucagon For Inj 1 Mg Vial IM PRN PRN Hypoglycemia Protocol Glucose 15 gm 09/29/22 12:54 Glucose Oral Gel 15 Gm Of Glucse In 37.5 Gm Tube PO PRN PRN Hypoglycemia Protocol Hydromorphone HCl 1 mg 09/29/22 11:23 10/01/22 15:39 Hydromorphone Hcl Inj (*Crx) 1 Mg/Ml Syr IV PUSH 1 mg Q3H PRN Administration Pain Rated 7-10 Metronidazole 500 mg in 100 mls @ 100 mls/hr 09/29/22 18:00 10/03/22 06:37 Flagyl 500 Mg/Iso Soln 100 Ml IVPB Infused Q6HR AYDEE Infusion Piperacillin/Tazobactam/Dextrose 3.375 gm in 50 mls @ 100 mls/hr 09/29/22 12:00 10/03/22 05:33 Zosyn 3.375 Gm/Ns 50 Ml IVPB Infused Q6HR AYDEE Infusion Dextrose 1,000 mls @ 100 mls/hr 09/29/22 12:54 Dextrose 5% 1,000 Ml IVPB PRN PRN Hypoglycemia Protocol Acetaminophen 650 mg in 65 mls @ 260 mls/hr 10/02/22 12:00 10/03/22 05:18 Ofirmev 650 Mg Ivpb IVPB 10/04/22 06:14 Infused Q6HR AYDEE Infusion Sodium Chloride 250 mls @ 30 mls/hr 10/03/22 09:36 Normal Saline Iv IV CONT 10/03/22 17:55 .Q8H20M STA Insulin Aspart 2 - 5 units 10/02/22 08:00 10/03/22 08:06 Insulin Aspart (*Bkc) 100 Units/Ml SUB-Q Not Given [facility] Protocol Levothyroxine Sodium 56 mcg 09/30/22 06:30 10/03/22 05:37 Levothyroxine Sodium Inj 100 Mcg/5 Ml Vial IV PUSH 56 mcg DAILY@0630 AYDEE Administration Pantoprazole Sodium 40 mg 09/29/22 11:30 10/03/22 08:06 Pantoprazole Sodium Iv 40 Mg Vial IV PUSH 40 mg QAM AYDEE Administration Prochlorperazine Edisylate 10 mg 10/01/22 11:12 10/03/22 00:11 Prochlorperazine Edisylate 10 Mg/2 Ml Vial IV PUSH 10 mg Q6H PRN Administration Nausea And Vomiting Radiology Results: ITS Impressions Abdomen X-Ray 09/29/22 06:59 Impression: Nonspecific bowel gas pattern. Abdomen/Pelvis CT 09/29/22 08:24 IMPRESSION: Diverticulitis of the sigmoid colon with diverticular abscesses, mild free fluid in the lower paracolic gutters and pelvis Labs Labs: Laboratory Results - last 24 hr 09/29/22 09/29/22 09/29/22 16:56 18:13 20:25 WBC RBC Hgb Hct MCV MCH MCHC RDW Plt Count MPV Immature Gran % (Auto) Neut % (Auto) Lymph % (Auto) [place] % (Auto) Eos % (Auto) Baso % (Auto) Lymph # (Auto) [place] # (Auto) Eos # (Auto) Baso # (Auto) Abs Immat Gran (auto) Absolute Neuts (auto) Absolute Nucleated RBC Nucleated RB
[2022-10-03] MEDS: CALCIUM GLUC 2,000 MG/NS 100ML 2,000 MG/100 ML BAG 100 MG IVPB (14:04)
[2022-10-03 14:53] LABS: Hematocrit 24.3 % (37.0-47.0); Hemoglobin 7.8 g/dL (12.0-15.0)
[2022-10-03 15:00] LABS: Potassium 3.3 mmol/L (3.4-5.0)
[2022-10-03] MEDS: SODIUM CHLORIDE 0.9% IV 250 ML 30 ML IV CONT (16:16)
[2022-10-03] MEDS: POTASSIUM CHLORIDE 20 MEQ TABLET 40 MEQ PO (17:57)
[2022-10-03] MEDS: LATANOPROST 0.005% OP SOLN 2.5 ML BTL 1 DROP EACH EYE (21:53)
[2022-10-03] MEDS: ALPRAZolam (*CRX) 0.5 MG TABLET PO (21:56)
[2022-10-03] MEDS: ENOXAPARIN 30 MG/0.3 ML SYRINGE SUB-Q (22:05)
[2022-10-04] VITALS (15 sets, daily range): BP systolic 151–176; BP diastolic 64–78; PULSE 60–75; RESP 12–18; TEMP 36.5–37.6; O2SAT 95–100
[2022-10-04 05:16] LABS: Hematocrit 28.7 % (37.0-47.0); Hemoglobin 9.6 g/dL (12.0-15.0); Mean Corpuscular HGB Conc 33.4 g/dl (32-36); Mean Corpuscular Hemoglobin 30.3 pg (26-34); Mean Corpuscular Volume 90.5 fl (80-100); Mean Platelet Volume 8.7 fl (7.4-10.4); Platelet Count Result 386 k/mm3 (150-375); Red Blood Count 3.17 M/mm3 (4.2-5.4); Red Cell Distribution Width 15.2 % (11.5-14.5); White Blood Count 13.2 K/mm3 (4.5-10.0)
[2022-10-04 05:26] LABS: Anion Gap 1 mmol/L (8-16); Blood Urea Nitrogen 4 mg/dL (7-17); Calcium 7.7 mg/dL (8.4-10.2); Carbon Dioxide 28 mmol/L (22-30); Chloride 101 mmol/L (98-107); Estimated CRCL calculation 101 ml/min; Estimated Glomerular Filt Rate > 60; Glucose 180 mg/dL (65-110); Magnesium 1.8 mg/dL (1.6-2.3); Potassium 3.5 mmol/L (3.4-5.0); Sodium 130 mmol/L (137-145)
[2022-10-04] MEDS: PIPERACILLN/TAZ 3.375GM/NS50ML 3.375 GM/50 ML BAG IVPB ×3 (05:31→17:45)
[2022-10-04] MEDS: metroNIDAZOLE 500 MG/ISO 100ML 500 MG/100 ML BAG 100 MG IVPB ×3 (05:31→17:45)
[2022-10-04] MEDS: LEVOTHYROXINE SODIUM INJ 100 MCG/5 ML VIAL 56 MCG IV PUSH (05:43)
[2022-10-04 05:53] LABS: Anisocytosis 2+ (NORMAL); Band Neutrophils Percent 14 % (0-6); Eosinophils Absolute Manual 0.26 K/mm3 (0.02-0.5); Eosinophils Percent Manual 2 % (0-4); Lymphocytes Absolute Manual 2.24 K/mm3 (1.1-4.5); Macrocytosis 1+ (NORMAL); Metamyelocytes Percent 4 %; Monocytes Absolute Manual 0.26 K/mm3 (0.1-0.90); Monocytes Percent Manual 2 % (3-9); Myelocytes Percent 1 %; Neutrophils Absolute Manual 9.76 K/mm3 (1.7-7.2); Neutrophils Percent Manual 60 % (46-73); Platelet Estimate Adequate (Adequate); Total Cells Counted 100
[2022-10-04 05:54] LABS: Hypersegmented Neutrophils Present; Hypochromasia 2+ (NORMAL); Microcytosis 2+ (NORMAL); Poikilocytosis 1+ (NORMAL); Schistocytes 1+ (NORMAL)
[2022-10-04 05:55] LABS: Burr Cells 1+ (NORMAL); Crenated RBC 1+ (NORMAL); Smudge Cells PRESENT; Toxic Granulation Present (NORMAL)
--- NOTE | 2022-10-04 08:25 | PM.IMPN ---
Progress Note: A&P Assessment and Plan (1) Sigmoid diverticulitis: Code(s): K57.32 - Diverticulitis of large intestine without perforation or abscess without bleeding Status: Acute Assessment and Plan: Noted on CT scan. General Surgery following. General surgery advancing diet to full liquids and possible low residue diet for dinner. Continue IV fluids, pain control and IV zosyn & flagyl. 10/03 CT scan showed extensive wall thickening and inflammatory change of the sigmoid colon consistent with diverticulitis plus moderate pneumoperitoneum from previous exam and worsening/ enlarging abscess in the pelvis 6.3 x 5.0 x 3.5 cm deep pelvic abscess that communicates with more crescent abscess in the superior left pelvis measuring 7.5 x 2.0 cm. IR placement of percutaneous drain planned for 10/04 10/04 WBC increased 13 with 14% bands. IR percutaneous drain to be placed today. Continue IV Zosyn and Flagyl (2) Abscess of sigmoid colon due to diverticulitis: Code(s): K57.20 - Diverticulitis of large intestine with perforation and abscess without bleeding Status: Acute Assessment and Plan: As above (3) Hyponatremia: Code(s): E87.1 - Hypo-osmolality and hyponatremia Status: Acute Assessment and Plan: 09/30 Sodium 126, but 128 when corrected for hyperglycemia. It was 128 on admission. May have SIADH component. Urine sodium 96, urine creatinine 55.3, urine osmo pending. Continue NS@75 ml/hour. 10/01 Sodium 132 with glucose 150 10/04 sodium 130. Patient NPO for drain placement and LR with potassium started, but stopped when patient taking p.o. (4) Insulin dependent diabetes mellitus: Status: Chronic Assessment and Plan: Continue aspart low dose sliding scale. Resume lantus when taking good PO. Hold off on dextrose fluids due to hyponatremia. Accu-checks Q6 hours with hypoglycemia protocol. fasting glucose 180 (5) Hypothyroidism: Qualifiers: Hypothyroidism type: acquired Qualified Code(s): E03.9 - Hypothyroidism, unspecified Code(s): E03.9 - Hypothyroidism, unspecified Status: Chronic Assessment and Plan: Continue levothyroxine. (6) Depression: Qualifiers: Depression Type: major depressive disorder Major depression recurrence: unspecified whether recurrent Psychotic features: without psychotic features Code(s): F32.A - Depression, unspecified Status: Chronic Assessment and Plan: Continue current medications. (7) History of total knee arthroplasty: Qualifiers: Laterality: right Qualified Code(s): Z96.651 - Presence of right artificial knee joint Code(s): Z96.659 - Presence of unspecified artificial knee joint Status: Acute Assessment and Plan: 09/26/22 R TKA. Management per Ortho. Continue PT ordered, pain control with IV while NPO, Lovenox SQ for DVT prophylaxis (8) Anemia: Qualifiers: Anemia type: unspecified type Qualified Code(s): D64.9 - Anemia, unspecified Code(s): D64.9 - Anemia, unspecified Status: Acute Assessment and Plan: 10/02/22 Hgb 7.8. Was 9.7 on admission and 9.4 postop. No melena, hematochezia, hematemesis, bleeding from knee incision. B12 and folate within normal limits, Ferritin normal 128, serum iron <10, TIBC slightly low 224, and %saturation <4%. transferrin 116 RDW normal. MCV, MCH, MCHC within normal limits. Normocytic, normochromic anemia- Likely early iron deficiency anemia from recent surgery. check reticulocyte count. 10/03 Hgb 7.8 again this morning. give 1 unit PRBC 10/04 Hgb 9.6 and she reports symptomatic improvement. (9) Hypokalemia due to excessive gastrointestinal loss of potassium: Code(s): E87.6 - Hypokalemia Status: Acute Assessment and Plan: 10/03 K2.6, secondary to GI loss. Give 80 mEQ PO KCl and 40 mEQ IV KCl. Mag 2.1. Check EKG. Add telemetry to monitor for ectopy and arrhy
[2022-10-04] MEDS: KCL 20 MEQ/LR 1,000 ML 75 ML IV CONT (09:08)
[2022-10-04] MEDS: PANTOPRAZOLE SODIUM IV 40 MG VIAL IV PUSH (09:09)
[2022-10-04] MEDS: hydrALAZINE HCL 20 MG/ML VIAL 10 MG IV PUSH (10:33)
--- NOTE | 2022-10-04 13:39 | WPDMODSED ---
Moderate Sedation Note-Pt Data Patient Data Diagnosis: Perisigmoid abscess. Present Complaint: Perisigmoid abscess. Procedure to be performed/Plan: CT-guided perisigmoid abscess drainage. Allergies Allergy/AdvReac Type Severity Reaction Status Date / Time clindamycin AdvReac Unknown Diarrhea Verified 09/29/22 06:27 rosuvastatin AdvReac Unknown DEPRESSED Verified 09/29/22 06:27 MOOD simvastatin AdvReac Unknown DEPRESSED Verified 09/29/22 06:27 MOOD amoxicillin AdvReac Diarrhea Verified 09/29/22 06:27 cephalexin [From Keflex] AdvReac Diarrhea Verified 09/29/22 06:27 diclofenac AdvReac Diarrhea Verified 09/29/22 06:27 Home Medications Medication Instructions Recorded Confirmed Type blood sugar diagnostic #10 ea 07/09/19 09/29/22 History cholecalciferol (vitamin D3) 50 2,000 unit PO DAILY 07/09/19 09/29/22 History mcg (2,000 unit) tablet coenzyme Q10 200 mg capsule (Co 200 mg PO DAILY 07/09/19 09/29/22 History Q-10) omega-3 fatty acids 1,000 mg 1,000 mg PO DAILY 07/09/19 09/29/22 History capsule (Fish Oil Concentrate) pen needle, diabetic 31 gauge x #100 ea 08/31/20 09/29/22 Rx 3/16 (BD Ultra-Fine Mini Pen Needle) alprazolam 0.5 mg tablet (Xanax) 0.5 mg PO DAILY PRN Anxiety 09/11/22 09/29/22 History cyanocobalamin (vitamin B-12) 5,000 mcg PO DAILY 09/11/22 09/29/22 History 5,000 mcg capsule fluoxetine 40 mg capsule 40 mg PO QAM 09/11/22 09/29/22 History insulin glargine 100 unit/mL (3 11 unit subcut QAM 09/11/22 09/29/22 History mL) subcutaneous pen (Lantus Solostar U-100 Insulin) levothyroxine 112 mcg tablet 112 mcg PO QAM 09/11/22 09/29/22 History (Synthroid) metformin 500 mg tablet,extended 500 mg PO BID 09/11/22 09/29/22 History release 24 hr valacyclovir 1 gram tablet 1,000 mg PO DAILY 09/11/22 09/29/22 History apixaban 2.5 mg tablet (Eliquis) 2.5 mg PO Q12HR #28 tabs 09/26/22 09/29/22 Rx celecoxib 100 mg capsule (Celebrex) 100 mg PO DAILY #14 caps 09/26/22 09/29/22 Rx doxycycline hyclate 100 mg tablet 100 mg PO Q12HR #24 tabs 09/26/22 09/29/22 Rx famotidine 20 mg tablet 20 mg PO Q12HR #60 tabs 09/26/22 09/29/22 Rx sennosides 8.6 mg-docusate sodium 2 tab-cap PO BID #60 tabs 09/26/22 09/29/22 Rx 50 mg tablet (Senokot-S) acetaminophen 500 mg tablet 1,000 mg PO Q6H 09/29/22 09/29/22 History latanoprost 0.005 % eye drops 1 drp EACH EYE QHS 09/29/22 09/29/22 History ondansetron HCl 8 mg tablet 8 mg PO Q6H PRN Nausea 09/29/22 09/29/22 History oxycodone 5 mg tablet 2.5 mg PO Q4HR PRN Pain 09/29/22 09/29/22 History Current Medications: Active Medications Alprazolam (Alprazolam (*Crx) 0.5 Mg Tablet) 0.5 mg PO DAILY PRN PRN Reason: Anxiety Last Admin: 10/03/22 21:56 Dose: 0.5 mg Apixaban (Apixaban 2.5 Mg Tablet) 2.5 mg PO Q12HR [facility] Stop: 10/14/22 20:59 Last Admin: 10/03/22 08:06 Dose: 2.5 mg Dextrose (Dextrose 50% 25 Gm/50 Ml Syringe) 12.5 gm IV PUSH PRN PRN; Protocol PRN Reason: Hypoglycemia Enoxaparin Sodium (Enoxaparin 30 Mg/0.3 Ml Syringe) 30 mg SUB-Q Q12HR AYDEE Last Admin: 10/04/22 09:07 Dose: Not Given Fluoxetine HCl (Fluoxetine Hcl 20 Mg Capsule) 40 mg PO QAM AYDEE Glucagon (Glucagon For Inj 1 Mg Vial) 1 mg IM PRN PRN; Protocol PRN Reason: Hypoglycemia Glucose (Glucose Oral Gel 15 Gm Of Glucse In 37.5 Gm Tube) 15 gm PO PRN PRN; Protocol PRN Reason: Hypoglycemia Hydralazine HCl (Hydralazine Hcl 20 Mg/Ml Vial) 10 mg IV PUSH Q8H PRN PRN Reason: Blood Pressure - High Last Admin: 10/04/22 10:33 Dose: 10 mg Hydromorphone HCl (Hydromorphone Hcl Inj (*Crx) 1 Mg/Ml Syr) 1 mg IV PUSH Q3H PRN PRN Reason: Pain Rated 7-10 Last Admin: 10/01/22 15:39 Dose: 1 mg Metronidazole (Flagyl 500 Mg/Iso Soln 100 Ml) 500 mg in 100 mls @ 100 mls/hr IVPB Q6HR AYDEE Last Infusion: 10/04/22 12:28 Dose: Infused Piperacillin/Tazobactam/Dextrose (Zosyn 3.375 Gm/Ns 50 Ml) 3.375 gm in 50 mls @ 100 mls/hr IVPB Q6HR AYDEE Last Admin: 10/04/22 12:40 Dose: 100 mls/hr
[2022-10-04] MEDS: FLUoxetine HCL 20 MG CAPSULE 40 MG PO (15:09)
--- NOTE | 2022-10-04 15:39 | PM.PNGS ---
Progress Note: A&P Assessment and Plan (1) Sigmoid diverticulitis: Code(s): K57.32 - Diverticulitis of large intestine without perforation or abscess without bleeding Status: Acute Assessment and Plan: Repeat CT scan abdomen pelvis yesterday showed worsening diverticulitis with new moderate pneumoperitoneum and enlarging abscesses in the pelvis that are amenable to drainage. She had some increased bloating and abdominal discomfort today, but no diffuse peritoneal signs on exam. She has appeared otherwise clinically stable. We ordered percutaneous abscess drainage in the Radiology today, which was successful. Cultures were sent. Her Eliquis was put on hold yesterday for the procedure and we restarted the prophylactic Lovenox at 30 mg BID. Will continue with IV Zosyn and Flagyl for now. Will continue a full liquid diet tonight after having the drain placed. WBC did go up slightly to 13.2 today prior to drainage, will repeat labs again tomorrow. (2) Hypokalemia due to excessive gastrointestinal loss of potassium: Code(s): E87.6 - Hypokalemia Status: Acute Assessment and Plan: Potassium improved this morning after supplementation yesterday, still on low end of normal at 3.5. Continue IV fluids with KCL, repeat labs tomorrow. Plan I have discussed the patient's case and plan of care with Dr. Go. Subjective Subjective Date/Time Seen: 10/04/22 15:39 Patient reports: no new complaints, feels better, voiding w/o difficulty, flatus, diarrhea (since having the Miralax) and afebrile Interval history: Patient reports having some more bloating and generalized abdominal discomfort this morning, but did not feel she was having more pain. She reports this has improved since having the drain placed. She has come back from Radiology after having a percutaneous drainage of her intra-abdominal abscess. She denies any nausea. She has been placed back on a full liquid diet. Exam Const: General: no acute distress Orientation/consciousness: patient oriented x3 GI: Inspection: other (mildly distended) GI Palp: Yes Soft to palpation, Yes Tenderness to palpation present (GI) (LLQ), No Guarding due to palpation present (GI) and No Rebound tenderness present Auscultation: normal bowel sounds Other: Right transgluteal percutaneous drain with purulent russo drainage and dressing dry and intact Skin: Other: Right knee dressing dry and intact Objective Data Vital Signs Vital Signs: Vital Signs - 24 hr 10/03/22 16:15 10/03/22 16:30 10/03/22 17:30 Temperature 98.9 F 98.5 F 99.0 F Pulse Rate 65 67 67 Respiratory Rate 16 16 16 Blood Pressure 150/78 H 154/61 H 161/66 H Pulse Oximetry 99 98 100 Oxygen Delivery Oxygen Flow Rate 10/03/22 16:00 10/03/22 18:30 10/03/22 19:30 Temperature 97.3 F L 98.1 F Pulse Rate 67 67 65 Respiratory Rate 16 16 Blood Pressure 158/69 H 163/72 H Pulse Oximetry 100 96 Oxygen Delivery Oxygen Flow Rate 10/03/22 21:03 10/03/22 20:00 10/04/22 00:00 Temperature 97.5 F L Pulse Rate 71 67 64 Respiratory Rate 22 H Blood Pressure 179/72 H Pulse Oximetry 98 Oxygen Delivery Oxygen Flow Rate 10/04/22 04:46 10/04/22 05:17 10/04/22 10:25 Temperature 99.7 F H 97.7 F Pulse Rate 65 60 69 Respiratory Rate 18 18 Blood Pressure 164/71 H 163/71 H Pulse Oximetry 98 96 Oxygen Delivery Oxygen Flow Rate 10/04/22 13:45 10/04/22 14:05 10/04/22 13:50 Temperature Pulse Rate 67 65 66 Respiratory Rate 12 12 12 Blood Pressure 176/78 H 155/72 H 164/74 H Pulse Oximetry 100 100 100 Oxygen Delivery Nasal Cannula Nasal Cannula Nasal Cannula Oxygen Flow Rate 3 3 3 10/04/22 13:55 10/04/22 14:00 10/04/22 14:10 Temperature Pulse Rate 65 64 68 Respiratory Rate 14 15 14 Blood Pressure 155/70 H 151/73 H 154/70 H Pulse Oximetry 100 100 100 Oxygen Delivery Nasal Cannula Nasal Cannula Nasal Cannula Oxygen Flow Rate 3 3 3 10/04/22 14:15
--- NOTE | 2022-10-04 16:40 | PM.CNOR ---
Assessment and Plan Assessment and plan (1) History of total knee arthroplasty: Qualifiers: Laterality: right Qualified Code(s): Z96.651 - Presence of right artificial knee joint Code(s): Z96.659 - Presence of unspecified artificial knee joint Status: Acute Assessment and Plan: Patient is after right total knee arthroplasty. She was admitted to the hospital 5 days ago with left lower quadrant pain noted severe diverticulitis with fluid around the sigmoid colon the small amount seen on CT scan. Her white count started to go up yesterday and CT scan performed yesterday showed a little bit of free air in the peritoneum and increased fluid collection felt most likely to represent abscess. A drain was placed percutaneously through the inner right buttock and there is purulent fluid in the drainage sac. She is feeling well and walked today and is not having any pain in her right knee there is no swelling in the right knee whatsoever she does straight leg raise quite easily. Ecchymosis is resolving from the knee replacement surgery. patient Lovenox 30 mg Q 12 hours for DVT prophylaxis. I have encouraged her to use the SCDs while she is in bed. Following History of Present Illness HPI Consult date: 10/04/22 Chief complaint: Sigmoid Diverticulitis with Abscesses PMFSH Past Medical History Medical History Basal cell carcinoma of skin of lip COVID-19 (09/2021) Depression Dyslipidemia Hypothyroidism Insulin dependent diabetes mellitus Irritable bowel syndrome with diarrhea Surgical History Surgical History History of arthroplasty of right knee (09/25/22) History of bladder surgery A&P repair History of hysterectomy History of partial thyroidectomy Right lobe. History of tonsillectomy and adenoidectomy Family History Family History Mother , age 85 Diabetes mellitus Alzheimer's disease Father , age 70 Family history of heart disease in male family member before age 55 Depression Acute myocardial infarction Heart disease Coronary artery disease Sibling Hyperlipidemia Sibling , age 76 Hyperlipidemia Heart disease Sibling Prediabetes Sibling No chronic problems Grandparent Dementia Grandparent Dementia Daughter Prediabetes Daughter No chronic problems Daughter No chronic problems Other Malignant neoplasm of prostate Social History Social History Social History: Surrogate medical decision maker: Zully Cerda, daughter. Code status: Full code. Years smoked: 3 Smoking status: Former smoker Tobacco type: cigarettes Smoking end date: 01/20/74 Additional smoking assessment comments: Smoked about 0.5 packs a week for 3 years. Alcohol intake: current Alcohol use details: Social alcohol use in moderation. Substance use: never Substance use type: does not use Lack of Transportation: YES Lack of Food: Never True Current Housing: I Have Housing Concerned About Future Housing: No Difficulty Paying Gas/Electric Bills: No Difficulty Paying for Meds: No Currently Unemployed: No Education: Decline to Answer Difficulty w/ Childcare or Family Care: No Living arrangements: with family Additional living arrangements comments: Lives in [place] with significant other. Additional occupation/education comments: Retired. Spiritual care concerns: No Meds Home Medications and Allergies Home Medications Medication Instructions Recorded Confirmed Type blood sugar diagnostic #10 ea 07/09/19 09/29/22 History cholecalciferol (vitamin D3) 50 2,000 unit PO DAILY 07/09/19 09/29/22 History mcg (2,000 unit) tablet coenzyme Q10 200 mg capsule (C
--- NOTE | 2022-10-04 19:44 | PC.NURSE ---
POC glucose not transmitting from the meter. Dinner meal accu check was 166. No sliding scale needed.
[2022-10-04] MEDS: ALPRAZolam (*CRX) 0.5 MG TABLET PO (20:37)
[2022-10-04] MEDS: ENOXAPARIN 30 MG/0.3 ML SYRINGE SUB-Q (20:37)
[2022-10-04] MEDS: LATANOPROST 0.005% OP SOLN 2.5 ML BTL 1 DROP EACH EYE (20:37)
[2022-10-05] MEDS: metroNIDAZOLE 500 MG/ISO 100ML 500 MG/100 ML BAG 100 MG IVPB ×4 (00:35→17:09)
[2022-10-05] MEDS: PIPERACILLN/TAZ 3.375GM/NS50ML 3.375 GM/50 ML BAG IVPB ×4 (00:35→17:09)
[2022-10-05 03:00] VITALS: BP 146/59; PULSE 62; RESP 18; TEMP 36.4; O2SAT 98
[2022-10-05 05:53] LABS: Hematocrit 31.4 % (37.0-47.0); Hemoglobin 10.5 g/dL (12.0-15.0); Mean Corpuscular HGB Conc 33.4 g/dl (32-36); Mean Corpuscular Hemoglobin 30.4 pg (26-34); Mean Platelet Volume 8.8 fl (7.4-10.4); Platelet Count Result 449 k/mm3 (150-375); Red Blood Count 3.45 M/mm3 (4.2-5.4); Red Cell Distribution Width 15.5 % (11.5-14.5); White Blood Count 15.1 K/mm3 (4.5-10.0)
[2022-10-05] MEDS: LEVOTHYROXINE SODIUM 112 MCG TABLET PO (06:06)
[2022-10-05 06:26] LABS: Anion Gap 3 mmol/L (8-16); Blood Urea Nitrogen 6 mg/dL (7-17); Calcium 7.5 mg/dL (8.4-10.2); Carbon Dioxide 29 mmol/L (22-30); Chloride 100 mmol/L (98-107); Estimated CRCL calculation 89 ml/min; Estimated Glomerular Filt Rate > 60; Glucose 168 mg/dL (65-110); Potassium 3.2 mmol/L (3.4-5.0); Sodium 132 mmol/L (137-145)
--- NOTE | 2022-10-05 07:24 | PM.PNORT ---
Subjective Subjective Date/Time Seen: 10/05/22 07:24 patient is now postop day 10 from right total knee arthroplasty. White count is a little bit more elevated this morning. Potassium is low at 3.2. Her knee looks very benign. Dressing is intact and dry. Minimal swelling in the knee. She is on Lovenox for DVT prophylaxis. SCDs are on. Following Objective Data Vital Signs Vital Signs: Vital Signs - 24 hr 10/04/22 10:25 10/04/22 13:45 10/04/22 14:05 Temperature 36.5 C Pulse Rate 69 67 65 Respiratory Rate 18 12 12 Blood Pressure 163/71 H 176/78 H 155/72 H Pulse Oximetry 96 100 100 Oxygen Delivery Nasal Cannula Nasal Cannula Oxygen Flow Rate 3 3 10/04/22 13:50 10/04/22 13:55 10/04/22 14:00 Temperature Pulse Rate 66 65 64 Respiratory Rate 12 14 15 Blood Pressure 164/74 H 155/70 H 151/73 H Pulse Oximetry 100 100 100 Oxygen Delivery Nasal Cannula Nasal Cannula Nasal Cannula Oxygen Flow Rate 3 3 3 10/04/22 14:10 10/04/22 14:15 10/04/22 14:20 Temperature Pulse Rate 68 75 74 Respiratory Rate 14 17 14 Blood Pressure 154/70 H 157/73 H 160/71 H Pulse Oximetry 100 99 99 Oxygen Delivery Nasal Cannula Room Air Room Air Oxygen Flow Rate 3 10/04/22 14:58 10/04/22 21:38 10/04/22 20:00 Temperature 37.5 C 37.5 C Pulse Rate 63 65 65 Respiratory Rate 16 18 18 Blood Pressure 152/65 H 158/64 H Pulse Oximetry 97 95 95 Oxygen Delivery Room Air Oxygen Flow Rate 10/05/22 03:00 Temperature 36.4 C L Pulse Rate 62 Respiratory Rate 18 Blood Pressure 146/59 H Pulse Oximetry 98 Oxygen Delivery Oxygen Flow Rate Intake/Output Intake/Output: Intake & Output 10/02/22 10/03/22 10/04/22 10/05/22 23:59 23:59 23:59 23:59 Intake Total 4160 2575 1440 440 Output Total 1800 3 600 Balance 2360 2575 1437 -160 Meds/Results Medications: Active Medications Generic Name Dose Route Start Last Admin Trade Name Freq PRN Reason Stop Dose Admin Acetaminophen 650 mg 10/04/22 15:41 Acetaminophen 325 Mg Tablet PO Q4H PRN Mild Pain (1-3) or Fever Alprazolam 0.5 mg 10/03/22 16:50 10/04/22 20:37 Alprazolam (*Crx) 0.5 Mg Tablet PO 0.5 mg DAILY PRN Administration Anxiety Apixaban 2.5 mg 10/02/22 21:00 10/03/22 08:06 Apixaban 2.5 Mg Tablet PO 10/14/22 20:59 2.5 mg Q12HR AYDEE Administration Dextrose 12.5 gm 09/29/22 12:54 Dextrose 50% 25 Gm/50 Ml Syringe IV PUSH PRN PRN Hypoglycemia Protocol Enoxaparin Sodium 30 mg 09/30/22 21:00 10/04/22 20:37 Enoxaparin 30 Mg/0.3 Ml Syringe SUB-Q 30 mg Q12HR AYDEE Administration Fluoxetine HCl 40 mg 10/04/22 09:00 10/04/22 15:09 Fluoxetine Hcl 20 Mg Capsule PO 40 mg QAM AYDEE Administration Glucagon 1 mg 09/29/22 12:54 Glucagon For Inj 1 Mg Vial IM PRN PRN Hypoglycemia Protocol Glucose 15 gm 09/29/22 12:54 Glucose Oral Gel 15 Gm Of Glucse In 37.5 Gm Tube PO PRN PRN Hypoglycemia Protocol Hydralazine HCl 10 mg 10/04/22 08:27 10/04/22 10:33 Hydralazine Hcl 20 Mg/Ml Vial IV PUSH 10 mg Q8H PRN Administration Blood Pressure - High Hydromorphone HCl 1 mg 09/29/22 11:23 10/01/22 15:39 Hydromorphone Hcl Inj (*Crx) 1 Mg/Ml Syr IV PUSH 1 mg Q3H PRN Administration Pain Rated 7-10 Metronidazole 500 mg in 100 mls @ 100 mls/hr 09/29/22 18:00 10/05/22 06:06 Flagyl 500 Mg/Iso Soln 100 Ml IVPB 100 mls/hr Q6HR AYDEE Administration Piperacillin/Tazobactam/Dextrose 3.375 gm in 50 mls @ 100 mls/hr 09/29/22 12:00 10/05/22 06:06 Zosyn 3.375 Gm/Ns 50 Ml IVPB 100 mls/hr Q6HR AYDEE Administration Dextrose 1,000 mls @ 100 mls/hr 09/29/22 12:54 Dextrose 5% 1,000 Ml IVPB PRN PRN Hypoglycemia Protocol Insulin Aspart 2 - 5 units 10/02/22 08:00 10/04/22 17:29 Insulin Aspart (*Bk) 100 Units/Ml SUB-Q Not Given TIDWM AYDEE Protocol Latanoprost 1 drop 10/03/22 21:00 10/04/22 20:37 La
[2022-10-05 08:05] LABS: Vitamin D 25 Hydroxy 36.6 ng/mL
[2022-10-05] MEDS: ENOXAPARIN 30 MG/0.3 ML SYRINGE SUB-Q ×2 (08:36→21:53)
[2022-10-05] MEDS: FLUoxetine HCL 20 MG CAPSULE 40 MG PO (08:36)
[2022-10-05] MEDS: PANTOPRAZOLE SODIUM IV 40 MG VIAL IV PUSH (08:36)
[2022-10-05] MEDS: POTASSIUM CHLORIDE 20 MEQ PACKET (FOR LIQUID) 40 MEQ PO (08:44)
--- NOTE | 2022-10-05 08:44 | PC.NURSE ---
Patients blood glucose this AM was 190. No dose required.
[2022-10-05 09:18] LABS: Parathyroid Intact 53.8 pg/mL (7.5-53.5)
--- NOTE | 2022-10-05 12:20 | PM.PNGS ---
Progress Note: A&P Assessment and Plan (1) Sigmoid diverticulitis: Code(s): K57.32 - Diverticulitis of large intestine without perforation or abscess without bleeding Status: Acute Assessment and Plan: WBC count trending up again today to 15,100. Afebrile this morning. No peritoneal signs on exam and abdominal pain/tenderness improved. Overall appears to be clinically improving after percutaneous drainage of intra-abdominal abscess in Radiology yesterday. Cultures pending. Continue IV Zosyn and Flagyl for now. 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 May need to consider TPN if unable to get adequate nutrition in the next few days. Repeat labs again tomorrow. (2) Hypokalemia due to excessive gastrointestinal loss of potassium: Code(s): E87.6 - Hypokalemia Status: Acute Assessment and Plan: Potassium still mildly low at 3.2 today and being replaced. Continue to monitor labs. Likely related to GI loss with diarrhea following the laxative, but diarrhea appears to be slowing down. Plan I have discussed the patient's case and plan of care with Dr. Go. Subjective Subjective Date/Time Seen: 10/05/22 09:20 Patient reports: feels better, pain is less, tolerating liquids well, flatus, bowel movement and afebrile Interval history: Patient still feeling bloated, but left lower quadrant abdominal pain has improved since drain placed yesterday. Tolerating full liquids well, but eating much off of the tray due to feeling full quickly. Drinking fluids well. After having the MiraLax few days ago, she feels her diarrhea is slowing down and stool is becoming slightly more formed. No other complaints at this time. Review of Systems Review of Systems: ROS unchanged Exam Const: General: no acute distress Orientation/consciousness: patient oriented x3 GI: Inspection: other (mildly distended) GI Palp: Yes Soft to palpation, No Tenderness to palpation present (GI) (no real tenderness even with deep palpation today), No Guarding due to palpation present (GI) and No Rebound tenderness present Auscultation: normal bowel sounds Other: Right transgluteal percutaneous drain with purulent russo drainage and dressing dry and intact Skin: Other: Right knee dressing dry and intact Objective Data Vital Signs Vital Signs: Vital Signs - 24 hr 10/04/22 13:45 10/04/22 14:05 10/04/22 13:50 Temperature Pulse Rate 67 65 66 Respiratory Rate 12 12 12 Blood Pressure 176/78 H 155/72 H 164/74 H Pulse Oximetry 100 100 100 Oxygen Delivery Nasal Cannula Nasal Cannula Nasal Cannula Oxygen Flow Rate 3 3 3 10/04/22 13:55 10/04/22 14:00 10/04/22 14:10 Temperature Pulse Rate 65 64 68 Respiratory Rate 14 15 14 Blood Pressure 155/70 H 151/73 H 154/70 H Pulse Oximetry 100 100 100 Oxygen Delivery Nasal Cannula Nasal Cannula Nasal Cannula Oxygen Flow Rate 3 3 3 10/04/22 14:15 10/04/22 14:20 10/04/22 14:58 Temperature 99.5 F Pulse Rate 75 74 63 Respiratory Rate 17 14 16 Blood Pressure 157/73 H 160/71 H 152/65 H Pulse Oximetry 99 99 97 Oxygen Delivery Room Air Room Air Oxygen Flow Rate 10/04/22 21:38 10/04/22 20:00 10/05/22 03:00 Temperature 99.5 F 97.5 F L Pulse Rate 65 65 62 Respiratory Rate 18 18 18 Blood Pressure 158/64 H 146/59 H Pulse Oximetry 95 95 98 Oxygen Delivery Room Air Oxygen Flow Rate 10/05/22 09:30 Temperature Pulse Rate Respiratory Rate Blood Pressure Pulse Oximetry Oxygen Delivery Room Air Oxygen Flow Rate Intake/Output Intake/Output: Intake & Output 10/02/22 10/03/22 10/04/22 10/05/22 23:59 23:59 23:59 23:59 Intake Total 4160 2575 1440 710 Output Total 1800 3 675 Balance 2360 8015 1437 35 Meds/Results Medications: Active Medications Generic Name Dose Route Start Last Admin Trade Name Freq PRN Reason Stop Dose Admin Acetaminophen 650 mg 10/04/22 15:41 Acetaminophen 325 Mg Tabl
[2022-10-05] MEDS: INSULIN ASPART (*BKC) 100 UNITS/ML SUB-Q ×2 (12:37→17:22)
[2022-10-05 13:50] VITALS: BP 154/68; PULSE 76; RESP 18; TEMP 36.7; O2SAT 99
--- NOTE | 2022-10-05 14:23 | PC.NURSE ---
Blood glucose 239 for 1200 accucheck.
[2022-10-05 14:57] LABS: Glucose Point of Care 239 mg/dl (65-105)
[2022-10-05 14:59] LABS: Glucose Point of Care 190 mg/dl (65-105)
[2022-10-05 15:01] LABS: Glucose Point of Care 176 mg/dl (65-105)
[2022-10-05 15:01] LABS: Glucose Point of Care 175 mg/dl (65-105)
[2022-10-05 15:01] LABS: Glucose Point of Care 225 mg/dl (65-105)
[2022-10-05 15:01] LABS: Glucose Point of Care 166 mg/dl (65-105)
[2022-10-05 15:02] LABS: Glucose Point of Care 246 mg/dl (65-105)
[2022-10-05 15:02] LABS: Glucose Point of Care 197 mg/dl (65-105)
[2022-10-05 15:02] LABS: Glucose Point of Care 148 mg/dl (65-105)
[2022-10-05 15:03] LABS: Glucose Point of Care 212 mg/dl (65-105)
[2022-10-05 15:04] LABS: Glucose Point of Care 295 mg/dl (65-105)
--- NOTE | 2022-10-05 15:44 | PM.IMPN ---
Progress Note: A&P Assessment and Plan (1) Sigmoid diverticulitis: Code(s): K57.32 - Diverticulitis of large intestine without perforation or abscess without bleeding Status: Acute Assessment and Plan: Noted on CT scan. General Surgery following. General surgery advancing diet to full liquids and possible low residue diet for dinner. Continue IV fluids, pain control and IV zosyn & flagyl. 10/03 CT scan showed extensive wall thickening and inflammatory change of the sigmoid colon consistent with diverticulitis plus moderate pneumoperitoneum from previous exam and worsening/ enlarging abscess in the pelvis 6.3 x 5.0 x 3.5 cm deep pelvic abscess that communicates with more crescent abscess in the superior left pelvis measuring 7.5 x 2.0 cm. IR placement of percutaneous drain planned for 10/04 10/04 WBC increased 13 with 14% bands. IR percutaneous drain to be placed. Continue IV Zosyn and Flagyl 10/05 abscess draining well advance diet as tolerated. (2) Abscess of sigmoid colon due to diverticulitis: Code(s): K57.20 - Diverticulitis of large intestine with perforation and abscess without bleeding Status: Acute Assessment and Plan: As above (3) Hyponatremia: Code(s): E87.1 - Hypo-osmolality and hyponatremia Status: Acute Assessment and Plan: 09/30 Sodium 126, but 128 when corrected for hyperglycemia. It was 128 on admission. May have SIADH component. Urine sodium 96, urine creatinine 55.3, urine osmo pending. Continue NS@75 ml/hour. Continue to monitor sodium. (4) Insulin dependent diabetes mellitus: Status: Chronic Assessment and Plan: Continue aspart low dose sliding scale. Resume lantus when taking good PO. Hold off on dextrose fluids due to hyponatremia. Accu-checks Q6 hours with hypoglycemia protocol. Fasting glucose 180 (5) Hypothyroidism: Qualifiers: Hypothyroidism type: acquired Qualified Code(s): E03.9 - Hypothyroidism, unspecified Code(s): E03.9 - Hypothyroidism, unspecified Status: Chronic Assessment and Plan: Continue levothyroxine. (6) Depression: Qualifiers: Depression Type: major depressive disorder Major depression recurrence: unspecified whether recurrent Psychotic features: without psychotic features Code(s): F32.A - Depression, unspecified Status: Chronic Assessment and Plan: Continue current medications. (7) History of total knee arthroplasty: Qualifiers: Laterality: right Qualified Code(s): Z96.651 - Presence of right artificial knee joint Code(s): Z96.659 - Presence of unspecified artificial knee joint Status: Acute Assessment and Plan: 09/26/22 R TKA. Management per Ortho. Continue PT ordered, pain control with IV while NPO, Lovenox SQ for DVT prophylaxis (8) Anemia: Qualifiers: Anemia type: unspecified type Qualified Code(s): D64.9 - Anemia, unspecified Code(s): D64.9 - Anemia, unspecified Status: Acute Assessment and Plan: 10/02/22 Hgb 7.8. Was 9.7 on admission and 9.4 postop. No melena, hematochezia, hematemesis, bleeding from knee incision. B12 and folate within normal limits, Ferritin normal 128, serum iron <10, TIBC slightly low 224, and %saturation <4%. transferrin 116 RDW normal. MCV, MCH, MCHC within normal limits. Normocytic, normochromic anemia- Likely early iron deficiency anemia from recent surgery. check reticulocyte count. 10/03 Hgb 7.8 again this morning. give 1 unit PRBC 10/04 Hgb 9.6 and she reports symptomatic improvement. 10/05 stable. (9) Hypokalemia due to excessive gastrointestinal loss of potassium: Code(s): E87.6 - Hypokalemia Status: Acute Assessment and Plan: 10/03 K2.6, secondary to GI loss. Give 80 mEQ PO KCl and 40 mEQ IV KCl. Mag 2.1. Check EKG. Add telemetry to monitor for ectopy
[2022-10-05 17:26] LABS: Glucose Point of Care 211 mg/dl (65-105)
[2022-10-05 19:24] VITALS: BP 160/72; PULSE 76; RESP 18; TEMP 36.4; O2SAT 100
[2022-10-05] MEDS: LATANOPROST 0.005% OP SOLN 2.5 ML BTL 1 DROP EACH EYE (21:48)
[2022-10-05] MEDS: ALPRAZolam (*CRX) 0.5 MG TABLET PO (21:53)
[2022-10-05 22:37] LABS: Glucose Point of Care 224 mg/dl (65-105)
[2022-10-06] MEDS: metroNIDAZOLE 500 MG/ISO 100ML 500 MG/100 ML BAG 100 MG IVPB ×3 (00:02→12:50)
[2022-10-06] MEDS: PIPERACILLN/TAZ 3.375GM/NS50ML 3.375 GM/50 ML BAG IVPB ×3 (00:02→12:50)
[2022-10-06 04:27] VITALS: BP 159/65; PULSE 65; RESP 18; TEMP 36.3; O2SAT 97
[2022-10-06] MEDS: LEVOTHYROXINE SODIUM 112 MCG TABLET PO (05:39)
[2022-10-06 06:00] LABS: Basophils Absolute Auto 0.1 K/mm3 (0.0-0.1); Basophils Percent Auto 0.4 % (0.2-1.2); Eosinophils Absolute Auto 0.4 K/mm3 (0-0.3); Eosinophils Percent Auto 2.5 % (0-4.4); Hematocrit 29.8 % (37.0-47.0); Hemoglobin 9.9 g/dL (12.0-15.0); Immature Granulocyte Absolute 0.84 K/mm3 (0.00-0.031); Immature Granulocyte Percent A 5.3 % (0-0.5); Lymphocytes Absolute Auto 1.71 K/mm3 (0.9-3.2); Lymphocytes Percent Auto 10.8 % (18.3-44.2); Mean Corpuscular HGB Conc 33.2 g/dl (32-36); Mean Corpuscular Hemoglobin 30.3 pg (26-34); Mean Corpuscular Volume 91.1 fl (80-100); Mean Platelet Volume 8.9 fl (7.4-10.4); Monocytes Absolute Auto 0.8 K/mm3 (0.1-0.6); Monocytes Percent Auto 5.3 % (2.6-8.5); Neutrophils Percent Auto 75.7 % (45.5-73.1); Nucleated Red Blood Cells Perc 0.2 % (0.0-0.2); Platelet Count Result 424 k/mm3 (150-375); Red Blood Count 3.27 M/mm3 (4.2-5.4); Red Cell Distribution Width 15.6 % (11.5-14.5); White Blood Count 15.8 K/mm3 (4.5-10.0)
[2022-10-06 06:19] LABS: Anion Gap 3 mmol/L (8-16); Blood Urea Nitrogen 4 mg/dL (7-17); Calcium 7.7 mg/dL (8.4-10.2); Carbon Dioxide 29 mmol/L (22-30); Chloride 99 mmol/L (98-107); Estimated CRCL calculation 89 ml/min; Estimated Glomerular Filt Rate > 60; Glucose 188 mg/dL (65-110); Potassium 3.1 mmol/L (3.4-5.0); Sodium 131 mmol/L (137-145)
[2022-10-06 07:07] LABS: Anisocytosis 1+ (NORMAL); Hypochromasia 1+ (NORMAL); Platelet Estimate Increased (Adequate); Poikilocytosis 1+ (NORMAL); Schistocytes Rare (NORMAL)
[2022-10-06 08:18] LABS: Glucose Point of Care 178 mg/dl (65-105)
[2022-10-06] MEDS: PANTOPRAZOLE SODIUM IV 40 MG VIAL IV PUSH (08:55)
[2022-10-06] MEDS: ENOXAPARIN 30 MG/0.3 ML SYRINGE SUB-Q (08:55)
[2022-10-06] MEDS: ACETAMINOPHEN 325 MG TABLET 650 MG PO ×2 (09:08→16:26)
--- NOTE | 2022-10-06 10:11 | WPDPN ---
Progress Note: A&P Assessment and Plan (1) Abscess of sigmoid colon due to diverticulitis: Code(s): K57.20 - Diverticulitis of large intestine with perforation and abscess without bleeding Status: Acute Assessment and Plan: Clinically the patient's abdomen is pretty benign today. Only minimal tenderness is noted. She continues to have bowel movements remains afebrile. White blood cell count is stable around 15,000. The pelvic abscess has been drained and the output from the drain is minimal. We will go ahead and advance her diet to low-fiber today. If she tolerates diet then anticipate discharge home later today or tomorrow on oral antibiotics for at least another 2 weeks. We will continue the drain for now and remove it in the office after getting a repeat CT scan next week as long as abscess has resolved. Subjective Date/time seen: 10/06/22 10:11 Interval history: Patient continues to feel better every day. No significant pelvic or left lower quadrant abdominal pain. The pelvic drain output is scant amount of purulent fluid. She has had no fever and has been tolerating a full liquid diet. White blood cell count has been stable 15,000. Exam Narrative: Abdomen is soft and nondistended. Minimal tenderness to palpation left lower quadrant and suprapubic regions. Right transgluteal drain site is dry without any redness. Input from the drain is minimal purulent fluid. Objective Data Vital Signs Vital Signs: Vital Signs - 24 hr 10/05/22 13:50 10/05/22 19:24 10/06/22 04:27 Temperature 36.7 C 36.4 C 36.3 C L Pulse Rate 76 76 65 Respiratory Rate 18 18 18 Blood Pressure 154/68 H 160/72 H 159/65 H Pulse Oximetry 99 100 97 Intake/Output Intake/Output: Intake & Output 10/03/22 10/04/22 10/05/22 10/06/22 23:59 23:59 23:59 23:59 Intake Total 2575 1440 3965 790 Output Total 3 975 Balance 2575 1437 2990 790 Meds/Results Medications: Active Medications Generic Name Dose Route Start Last Admin Trade Name Freq PRN Reason Stop Dose Admin Acetaminophen 650 mg 10/04/22 15:41 10/06/22 09:08 Acetaminophen 325 Mg Tablet PO 650 mg Q4H PRN Administration Mild Pain (1-3) or Fever Alprazolam 0.5 mg 10/03/22 16:50 10/05/22 21:53 Alprazolam (*Crx) 0.5 Mg Tablet PO 0.5 mg DAILY PRN Administration Anxiety Apixaban 2.5 mg 10/06/22 21:00 Apixaban 2.5 Mg Tablet PO 10/18/22 20:59 Q12HR AYDEE Dextrose 12.5 gm 09/29/22 12:54 Dextrose 50% 25 Gm/50 Ml Syringe IV PUSH PRN PRN Hypoglycemia Protocol Fluoxetine HCl 40 mg 10/04/22 09:00 10/05/22 08:36 Fluoxetine Hcl 20 Mg Capsule PO 40 mg QAM AYDEE Administration Glucagon 1 mg 09/29/22 12:54 Glucagon For Inj 1 Mg Vial IM PRN PRN Hypoglycemia Protocol Glucose 15 gm 09/29/22 12:54 Glucose Oral Gel 15 Gm Of Glucse In 37.5 Gm Tube PO PRN PRN Hypoglycemia Protocol Hydralazine HCl 10 mg 10/04/22 08:27 10/04/22 10:33 Hydralazine Hcl 20 Mg/Ml Vial IV PUSH 10 mg Q8H PRN Administration Blood Pressure - High Hydromorphone HCl 1 mg 09/29/22 11:23 10/01/22 15:39 Hydromorphone Hcl Inj (*Crx) 1 Mg/Ml Syr IV PUSH 1 mg Q3H PRN Administration Pain Rated 7-10 Metronidazole 500 mg in 100 mls @ 100 mls/hr 09/29/22 18:00 10/06/22 07:37 Flagyl 500 Mg/Iso Soln 100 Ml IVPB Infused Q6HR AYDEE Infusion Piperacillin/Tazobactam/Dextrose 3.375 gm in 50 mls @ 100 mls/hr 09/29/22 12:00 10/06/22 07:37 Zosyn 3.375 Gm/Ns 50 Ml IVPB Infused Q6HR AYDEE Infusion Dextrose 1,000 mls @ 100 mls/hr 09/29/22 12:54 Dextrose 5% 1,000 Ml IVPB PRN PRN Hypoglycemia Protocol Insulin Aspart 2 - 5 units 10/02/22 08:00 10/06/22 08:39 Insulin Aspart (*Bkc) 100 Units/Ml SUB-Q Not Given TIDWM [facility] Protocol Latanoprost 1 drop 10/03/22 21:00 10/05/22 21:48 Latanoprost 0.005% Op Soln 2.5 Ml Btl EACH EYE 1
[2022-10-06 12:46] LABS: Glucose Point of Care 197 mg/dl (65-105)
[2022-10-06] MEDS: FLUoxetine HCL 20 MG CAPSULE 40 MG PO (12:47)
[2022-10-06 14:00] VITALS: BP 123/50; PULSE 70; RESP 14; TEMP 36.4; O2SAT 100
--- NOTE | 2022-10-06 14:45 | PM.DS ---
DS: Admitting Diagnosis Discharge Date 10/06/22 Admitting Diagnosis diverticulitis abscess DS: Discharge Diagnosis Discharge Diagnosis (1) Sigmoid diverticulitis: Code(s): K57.32 - Diverticulitis of large intestine without perforation or abscess without bleeding Status: Acute Assessment and Plan: Noted on CT scan. General Surgery following. General surgery advancing diet to full liquids and possible low residue diet for dinner. Continue IV fluids, pain control and IV zosyn & flagyl. 10/03 CT scan showed extensive wall thickening and inflammatory change of the sigmoid colon consistent with diverticulitis plus moderate pneumoperitoneum from previous exam and worsening/ enlarging abscess in the pelvis 6.3 x 5.0 x 3.5 cm deep pelvic abscess that communicates with more crescent abscess in the superior left pelvis measuring 7.5 x 2.0 cm. IR placement of percutaneous drain planned for 10/04 10/04 WBC increased 13 with 14% bands. IR percutaneous drain to be placed. Continue IV Zosyn and Flagyl 10/05 abscess draining well advance diet as tolerated. 10/06/22 patient tolerating diet advancement well (2) Abscess of sigmoid colon due to diverticulitis: Code(s): K57.20 - Diverticulitis of large intestine with perforation and abscess without bleeding Status: Acute Assessment and Plan: As above (3) Hyponatremia: Code(s): E87.1 - Hypo-osmolality and hyponatremia Status: Acute Assessment and Plan: 09/30 Sodium 126, but 128 when corrected for hyperglycemia. It was 128 on admission. May have SIADH component. Urine sodium 96, urine creatinine 55.3, urine osmo pending. Continue NS@75 ml/hour. Continue to monitor sodium. (4) Insulin dependent diabetes mellitus: Status: Chronic Assessment and Plan: Continue aspart low dose sliding scale. Resume lantus when taking good PO. Hold off on dextrose fluids due to hyponatremia. Accu-checks Q6 hours with hypoglycemia protocol. Fasting glucose 180 (5) Hypothyroidism: Qualifiers: Hypothyroidism type: acquired Qualified Code(s): E03.9 - Hypothyroidism, unspecified Code(s): E03.9 - Hypothyroidism, unspecified Status: Chronic Assessment and Plan: Continue levothyroxine. (6) Depression: Qualifiers: Depression Type: major depressive disorder Major depression recurrence: unspecified whether recurrent Psychotic features: without psychotic features Code(s): F32.A - Depression, unspecified Status: Chronic Assessment and Plan: Continue current medications. (7) History of total knee arthroplasty: Qualifiers: Laterality: right Qualified Code(s): Z96.651 - Presence of right artificial knee joint Code(s): Z96.659 - Presence of unspecified artificial knee joint Status: Acute Assessment and Plan: 09/26/22 R TKA. Management per Ortho. Continue PT ordered, pain control with IV while NPO, Lovenox SQ for DVT prophylaxis (8) Anemia: Qualifiers: Anemia type: unspecified type Qualified Code(s): D64.9 - Anemia, unspecified Code(s): D64.9 - Anemia, unspecified Status: Acute Assessment and Plan: 10/02/22 Hgb 7.8. Was 9.7 on admission and 9.4 postop. No melena, hematochezia, hematemesis, bleeding from knee incision. B12 and folate within normal limits, Ferritin normal 128, serum iron <10, TIBC slightly low 224, and %saturation <4%. transferrin 116 RDW normal. MCV, MCH, MCHC within normal limits. Normocytic, normochromic anemia- Likely early iron deficiency anemia from recent surgery. check reticulocyte count. 10/03 Hgb 7.8 again this morning. give 1 unit PRBC 10/04 Hgb 9.6 and she reports symptomatic improvement. 10/05 stable. (9) Hypokalemia due to excessive gastrointestinal loss of potassium: Code(s): E87.6 - Hypokalemia Status: Acute
[2022-10-06] MEDS: POTASSIUM CHLORIDE 20 MEQ PACKET (FOR LIQUID) 60 MEQ PO (15:50)
== END 2022-10-06 16:53 | disposition home or self-care (01) | DRG 392 ==
LOC: ANHED 09:21 → ANH2MED 11:34 → ANHED 13:57
PROVIDERS: Internal Medicine; Nurse Practitioner Family; Physician Assistant; Radiology Diagnostic Radiology; Admitting Provider Surgery; Emergency Provider Emergency Medicine; PCP Family Medicine; Visit Provider Internal Medicine Critical Care Medicine
DX: K57.20 Diverticulitis of large intestine with perforation and abscess without bleeding (principal); E87.1 Hypo-osmolality and hyponatremia; E11.65 Type 2 diabetes mellitus with hyperglycemia; Z79.4 Long term (current) use of insulin; F32.9 Major depressive disorder, single episode, unspecified; Z96.651 Presence of right artificial knee joint; D50.9 Iron deficiency anemia, unspecified; E87.6 Hypokalemia; E83.51 Hypocalcemia; Z88.1 Allergy status to other antibiotic agents
CPT/HCPCS: 36415; 36430; 74018; 74177; 75989; 80048; 80053; 82306; 82570; 82607; 82728; 82746; 82948; 83540; 83550; 83605; 83735; 83930; 83935; 83970; 84132; 84295; 84300; 84443; 84466; 85014; 85018; 85025; 85027; 85046; 85610; 85730; 86850; 86900; 86901; 86923; 87040; 87070; 87075; 87205; 93005; 96361; 96365; 96366; 96367; 96368; 96372; 96375; 96376; 97110; 97116; 97161; 97530; 99285; A9270; C1729; C1769; C9113; G0378; J0131; J0360; J0612; J0780; J1170; J1650; J1815; J1956; J2250; J2405; J2543; J3010; J3475; J3480; J7030; J7040; J7050; J7121; P9016; Q9967

== ENCOUNTER → 2022-10-18 15:02 | Outpatient (CLI) | payer MEDICARE, SELFPAY ==
--- NOTE | ~2022-10-18 | CT_ITS ---
EXAMINATION: CT abdomen pelvis w con INDICATION: Perforated diverticulitis with pelvic abscess TECHNIQUE: Computed tomographic images of the abdomen and pelvis were obtained after the administrati on of 100 cc of Omnipaque 350 intravenous contrast. The dose-length product (DLP) was 395.77 mGy-cm. Automated exposure control and iterative reconstruction technique were employed. COMPARISON: 10/03/2022 FINDINGS: Minimal dependent atelectasis is present in the lung bases. The heart size is normal. There are trace pleural effusions. The liver, spleen, pancreas, gallbladder, and adrenal glands are normal . The kidneys are unremarkable. There is calcified atherosclerosis of the aorta and many of the other arteries. There is a 6.1 x 4.4 cm pelvic abscess which is mildly decreased in size since the compari son examination. The percutaneous drainage catheter has been displaced from the abscess cavity and is present adjacent to the abscess. Again seen is communication with an 8.2 x 3.5 cm abscess located mo re cranially in the left pelvis, which has also slightly decreased in size. There is a small amount o f hyperattenuating material in the cranial portion of the abscess which is not significantly changed since the comparison examination. Oral contrast material partially opacifies the stomach and small kaiser wel. Pneumoperitoneum of the upper abdomen has resolved. There is severe lumbar spondylosis. IMPRESSION: 1. Complex pelvic abscess, extending superolaterally into the left pelvis, with minimal decrease in s ize. Pelvic drainage catheter has been displaced from the abscess cavity. Reviewed, dictated and finalized at location F. IMPRESSION: 1. Complex pelvic abscess, extending superolaterally into the left pelvis, with minimal decrease in size. Pelvic drainage catheter has been displaced from the abscess cavity.
[2022-10-18 16:03] LABS: Estimated Glomerular Filt Rate > 60
== END ==
PROVIDERS: PCP Family Medicine; Visit Provider Surgery
DX: K57.20 Diverticulitis of large intestine with perforation and abscess without bleeding (principal); N73.9 Female pelvic inflammatory disease, unspecified; T85.628A Displacement of other specified internal prosthetic devices, implants and grafts, initial encounter
CPT/HCPCS: 74177; Q9967

== ENCOUNTER 2022-10-20 06:20 | Outpatient (CLI) | payer MEDICARE, SELFPAY ==
[2022-10-20] VITALS (21 sets, daily range): BP systolic 110–169; BP diastolic 54–82; PULSE 65–79; RESP 12–21; O2SAT 97–100
--- NOTE | ~2022-10-20 | CT_ITS ---
EXAMINATION: 1. CT guide absc cath placement 2. CT guide absc cath placement DATE: 10/20/2022 13:18 INDICATION: Pelvic abscesses. TECHNIQUE: The procedure including the risks, benefits, and alternatives was discussed with the patie nt. Risks discussed included bleeding and infection. The patient understood the risks and benefits an d agreed to proceed. The skin overlying the right buttock was prepped and draped in usual sterile fas hion. Anesthetic was administered with 1% lidocaine subcutaneously. Moderate sedation was achieved w ith 2 mg Versed IV and 100 mg IV. An 18 gauge trochar needle was inserted into the pelvic abscess wit h CT guidance. The needle was exchanged over a wire for 6 [place] and 8 [place] dilators and then for a 10 [place] pigtail catheter. The catheter was stitched to the skin, and a sterile dressing was applie d. The patient was then placed supine. The skin overlying the abdomen was prepped and draped in usual st erile fashion. Anesthetic was administered with 1% lidocaine subcutaneously. An 18 gauge trochar nee dle was inserted into the perisigmoid abscess with CT guidance. The needle was exchanged over a wire for 6 [place] and 8 [place] dilators and then for an 8.5 [place] pigtail catheter. The catheter was stit ched to the skin, and a sterile dressing was applied. The mA was adjusted according to patient size. Iterative reconstruction technique was employed. The dose-length product was 157.71 mGy-cm. There wer e no immediate complications. FINDINGS: CT images demonstrate the catheter within the pelvic abscess. 20 mL fluid was aspirated for testing. CT images demonstrate the catheter within the perisigmoid abscess. There is oral contrast w ithin the perisigmoid abscess. IMPRESSION: 1. Successful CT-guided pelvic abscess drainage. 2. 20 mL opaque, russo fluid was sent for aerobic and anaerobic cultures. 3. Successful CT-guided perisigmoid abscess drainage. 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 Reviewed, dictated and finalized at location A. IMPRESSION: 1. Successful CT-guided pelvic abscess drainage. 2. 20 mL opaque, russo fluid was sent for aerobic and anaerobic cultures. 3. Successful CT-guided perisigmoid abscess drainage. Note that this abscess rebollar s a fistula to the sigmoid colon.
--- NOTE | 2022-10-20 11:14 | WPDMODSED ---
Moderate Sedation Note-Pt Data Patient Data Diagnosis: Perisigmoid abscess. Present Complaint: Perisigmoid abscess. Procedure to be performed/Plan: CT-guided perisigmoid abscess drainage. Allergies Allergy/AdvReac Type Severity Reaction Status Date / Time clindamycin AdvReac Unknown Diarrhea Verified 10/17/22 09:17 rosuvastatin AdvReac Unknown DEPRESSED Verified 10/17/22 09:17 MOOD simvastatin AdvReac Unknown DEPRESSED Verified 10/17/22 09:17 MOOD amoxicillin AdvReac Diarrhea Verified 10/17/22 09:17 cephalexin [From Keflex] AdvReac Diarrhea Verified 10/17/22 09:17 diclofenac AdvReac Diarrhea Verified 10/17/22 09:17 Home Medications Medication Instructions Recorded Confirmed Type blood sugar diagnostic #10 ea 07/09/19 09/29/22 History pen needle, diabetic 31 gauge x #100 ea 08/31/20 09/29/22 Rx 3/16 (BD Ultra-Fine Mini Pen Needle) alprazolam 0.5 mg tablet (Xanax) 0.5 mg PO DAILY PRN Anxiety 09/11/22 09/29/22 History fluoxetine 40 mg capsule 40 mg PO QAM 09/11/22 09/29/22 History insulin glargine 100 unit/mL (3 11 unit subcut QAM 09/11/22 09/29/22 History mL) subcutaneous pen (Lantus Solostar U-100 Insulin) levothyroxine 112 mcg tablet 112 mcg PO QAM 09/11/22 09/29/22 History (Synthroid) metformin 500 mg tablet,extended 500 mg PO BID 09/11/22 09/29/22 History release 24 hr apixaban 2.5 mg tablet (Eliquis) 2.5 mg PO Q12HR #28 tabs 09/26/22 09/29/22 Rx celecoxib 100 mg capsule (Celebrex) 100 mg PO DAILY #14 caps 09/26/22 09/29/22 Rx doxycycline hyclate 100 mg tablet 100 mg PO Q12HR #24 tabs 09/26/22 09/29/22 Rx famotidine 20 mg tablet 20 mg PO Q12HR #60 tabs 09/26/22 09/29/22 Rx sennosides 8.6 mg-docusate sodium 2 tab-cap PO BID #60 tabs 09/26/22 09/29/22 Rx 50 mg tablet (Senokot-S) acetaminophen 500 mg tablet 1,000 mg PO Q6H 09/29/22 09/29/22 History latanoprost 0.005 % eye drops 1 drp EACH EYE QHS 09/29/22 09/29/22 History ondansetron HCl 8 mg tablet 8 mg PO Q6H PRN Nausea 09/29/22 09/29/22 History amoxicillin 875 mg-potassium 1 tablet PO Q12H #28 tabs 10/06/22 Rx clavulanate 125 mg tablet metronidazole 500 mg tablet 500 mg PO Q12H #28 tabs 10/06/22 Rx promethazine 25 mg tablet 25 mg PO Q4H PRN nausea #30 tabs 10/17/22 Rx Sedation/Anesthesia: No previous sedation/anesthesia problems (including family history). [facility], [facility] Past Medical History Medical History Basal cell carcinoma of skin of lip COVID-19 (09/2021) Depression Dyslipidemia Hypothyroidism Insulin dependent diabetes mellitus Irritable bowel syndrome with diarrhea Surgical History Surgical History History of arthroplasty of right knee (09/25/22) History of bladder surgery A&P repair History of hysterectomy History of partial thyroidectomy Right lobe. History of tonsillectomy and adenoidectomy Family History Family History Mother , age 85 Diabetes mellitus Alzheimer's disease Father , age 70 Family history of heart disease in male family member before age 55 Depression Acute myocardial infarction Heart disease Coronary artery disease Sibling Hyperlipidemia Sibling , age 76 Hyperlipidemia Heart disease Sibling Prediabetes Sibling No chronic problems Grandparent Dementia Grandparent Dementia Daughter Prediabetes Daughter No chronic problems Daughter No chronic problems Other Malignant neoplasm of prostate Social History Social History Social History: Surrogate medical decision maker: Zully Cerda, daughter. Code status: Full code. Years smoked: 3 Smoking status: Former smoker Tobacco type: cigarettes Smoking end date: 01/20/74 Additional smoking assessment comments: Smoked about 0.5 packs a week
== END 2022-10-20 13:43 | disposition home or self-care (01) ==
PROVIDERS: Radiology Diagnostic Radiology; PCP Family Medicine; Visit Provider Surgery
DX: L02.91 Cutaneous abscess, unspecified (principal); K57.20 Diverticulitis of large intestine with perforation and abscess without bleeding
CPT/HCPCS: 75989; 87070; 87075; 87077; 87106; 87186; 87205; C1729; J2250; J3010

== ENCOUNTER 2022-11-07 11:49 | Outpatient (CLI) | payer MEDICARE, SELFPAY ==
--- NOTE | ~2022-11-07 | CT_ITS ---
EXAMINATION: CT abdomen pelvis w con DATE: 11/07/2022 13:49 INDICATION: Follow-up diverticular abscess TECHNIQUE: Computed tomography (CT) of the abdomen and pelvis was performed with 100 cc Omnipaque 350 intravenous contrast. The dose-length product was 333.66 mGy-cm. Automated exposure control and iter ative reconstruction technique were employed. COMPARISON: CT dated 10/18/2022 FINDINGS: Interval placement of drainage catheter into the pelvis. There has been near complete resol ution of a deep pelvic abscess. There is a second drainage catheter extending via the transsacral tono pitts. There is a small residual abscess in the pelvis measuring 1.2 x 1.7 cm compared 6.2 x 4.3 cm o n prior examination. There is a small residual peridiverticular abscess measuring 2.3 x 2.2 cm compar ed with 2.6 x 2.66 cm on prior examination. Colonic diverticulosis reidentified. There is improved in flammatory changes in the pelvis. 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 There is severe lumbar spondy losis. There is atherosclerosis of the aorta without aneurysm. Subtle hypodensity of the liver near t he falciform ligament, likely focal fatty infiltration. The spleen, pancreas, right adrenal gland are unremarkable. 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 IMPRESSION: 1. Improved multiloculated pelvic abscesses compared with 10/18/2022. Reviewed, dictated and finalized at location A.
== END 2022-11-07 11:50 | disposition home or self-care (01) ==
PROVIDERS: PCP Family Medicine; Visit Provider Surgery
DX: K57.20 Diverticulitis of large intestine with perforation and abscess without bleeding (principal)
CPT/HCPCS: 74177; Q9967

== ENCOUNTER 2022-11-08 13:47 | Outpatient (CLI) | payer MEDICARE, SELFPAY ==
[2022-11-08 14:17] LABS: Basophils Absolute Auto 0.1 K/mm3 (0.0-0.1); Basophils Percent Auto 0.7 % (0.2-1.2); Eosinophils Absolute Auto 0.4 K/mm3 (0-0.3); Eosinophils Percent Auto 4.6 % (0-4.4); Hematocrit 32.6 % (37.0-47.0); Hemoglobin 10.3 g/dL (12.0-15.0); Immature Granulocyte Absolute 0.03 K/mm3 (0.00-0.031); Immature Granulocyte Percent A 0.4 % (0-0.5); Lymphocytes Absolute Auto 2.02 K/mm3 (0.9-3.2); Lymphocytes Percent Auto 25.1 % (18.3-44.2); Mean Corpuscular HGB Conc 31.6 g/dl (32-36); Mean Corpuscular Hemoglobin 28.8 pg (26-34); Mean Corpuscular Volume 91.1 fl (80-100); Mean Platelet Volume 8.4 fl (7.4-10.4); Monocytes Absolute Auto 0.6 K/mm3 (0.1-0.6); Monocytes Percent Auto 7.7 % (2.6-8.5); Neutrophils Percent Auto 61.5 % (45.5-73.1); Platelet Count Result 538 k/mm3 (150-375); Red Blood Count 3.58 M/mm3 (4.2-5.4); Red Cell Distribution Width 14.6 % (11.5-14.5); White Blood Count 8.1 K/mm3 (4.5-10.0)
[2022-11-08 14:29] LABS: Alanine Aminotransferase 22 U/L (6-35); Alkaline Phosphatase 72 U/L (38-126); Anion Gap 4 mmol/L (8-16); Aspartate Amino Transferase 34 U/L (14-36); Bilirubin,Total 0.4 mg/dL (0.2-1.3); Blood Urea Nitrogen 8 mg/dL (7-17); Calcium 9.3 mg/dL (8.4-10.2); Carbon Dioxide 34 mmol/L (22-30); Chloride 99 mmol/L (98-107); Estimated Glomerular Filt Rate > 60; Glucose 103 mg/dL (65-110); Potassium 3.2 mmol/L (3.4-5.0); Sodium 137 mmol/L (137-145)
== END 2022-11-08 13:48 | disposition home or self-care (01) ==
LOC: ANHLAB 13:49
PROVIDERS: PCP Family Medicine; Visit Provider Surgery
DX: K57.20 Diverticulitis of large intestine with perforation and abscess without bleeding (principal); K57.32 Diverticulitis of large intestine without perforation or abscess without bleeding
CPT/HCPCS: 36415; 80053; 85025

== ENCOUNTER 2022-11-22 07:58 | Outpatient (CLI) | payer MEDICARE, SELFPAY ==
--- NOTE | 2022-11-22 09:18 | ECG_ITS ---
Measurements Intervals [place] Rate: 64 P: 7 AK: 96 QRS: 11 QRSD: 90 T: 31 QT: 454 QTc: 469 Interpretive Statements SINUS RHYTHM WITH SHORT AK INTERVAL DELAYED PRECORDIAL R/S TRANSITION CONSIDER INFERIOR INFARCT, AGE INDETERMINATE BASELINE ARTIFACT- I, II, III, AVR, AVL, AVF, V1-V5 ABNORMAL ECG COMPARED TO ECG 10/03/2022 09:48:01 NO SIGNIFICANT CHANGES Electronically Signed On 11-22-2022 11:44:29 CDT by Shade Brothers D.O.
[2022-11-22 09:52] LABS: Basophils Absolute Auto 0.1 K/mm3 (0.0-0.1); Basophils Percent Auto 0.3 % (0.2-1.2); Eosinophils Absolute Auto 0.2 K/mm3 (0-0.3); Eosinophils Percent Auto 1.2 % (0-4.4); Hematocrit 32.5 % (37.0-47.0); Hemoglobin 10.1 g/dL (12.0-15.0); Immature Granulocyte Absolute 0.17 K/mm3 (0.00-0.031); Immature Granulocyte Percent A 0.9 % (0-0.5); Lymphocytes Absolute Auto 2.28 K/mm3 (0.9-3.2); Lymphocytes Percent Auto 12.4 % (18.3-44.2); Mean Corpuscular HGB Conc 31.1 g/dl (32-36); Mean Corpuscular Hemoglobin 27.8 pg (26-34); Mean Corpuscular Volume 89.5 fl (80-100); Mean Platelet Volume 8.4 fl (7.4-10.4); Monocytes Absolute Auto 0.9 K/mm3 (0.1-0.6); Neutrophils Absolute Auto 14.7 K/mm3 (1.3-6.7); Neutrophils Percent Auto 80.2 % (45.5-73.1); Platelet Count Result 574 k/mm3 (150-375); Red Blood Count 3.63 M/mm3 (4.2-5.4); White Blood Count 18.4 K/mm3 (4.5-10.0)
[2022-11-22 10:00] LABS: Prothrombin Time 13.5 Seconds (11.1-14.7)
--- NOTE | 2022-11-22 10:00 | PCWOUND ---
WOCN NOTE Had patient sit up, supine, and bend to determine best ostomy site location. placed black marker X on site, covered with transparent dressing. Did basic ostomy teaching.
[2022-11-22 10:05] LABS: Alanine Aminotransferase 38 U/L (6-35); Albumin Level 3.8 g/dL (3.5-5.1); Alkaline Phosphatase 154 U/L (38-126); Anion Gap 7 mmol/L (8-16); Aspartate Amino Transferase 36 U/L (14-36); Bilirubin,Total 0.4 mg/dL (0.2-1.3); Blood Urea Nitrogen 13 mg/dL (7-17); Calcium 9.3 mg/dL (8.4-10.2); Carbon Dioxide 31 mmol/L (22-30); Chloride 98 mmol/L (98-107); Estimated Glomerular Filt Rate > 60; Glucose 97 mg/dL (65-110); Potassium 4.2 mmol/L (3.4-5.0); Sodium 136 mmol/L (137-145)
== END 2022-11-22 07:59 | disposition home or self-care (01) ==
LOC: ANHSURGERY 08:02
PROVIDERS: PCP Family Medicine; Visit Provider Surgery
DX: Z01.810 Encounter for preprocedural cardiovascular examination (principal); Z01.812 Encounter for preprocedural laboratory examination; K57.20 Diverticulitis of large intestine with perforation and abscess without bleeding; R94.31 Abnormal electrocardiogram [ECG] [EKG]
CPT/HCPCS: 36415; 80053; 85025; 85610; 93005

== ENCOUNTER 2022-12-01 08:51 | Inpatient (IN) | payer MEDICARE, SELFPAY ==
[2022-11-22 08:15] VITALS: BMI 21.2
--- NOTE | 2022-11-22 08:45 | PC.NURSE ---
Report to the Outpatient Waiting Room, entrance under the green pavilion located off [facility], at time __0600 on date ___12/01/22____. Planned Procedure Time: _0730 . Time changes happen often and if your time is changed the preop area will call you the afternoon before. - You and your visitor will be asked to self-screen and do not enter if you have any COVID symptoms. - A mask is optional within the hospital at this time. Patients may have clear liquids (water, carbonated beverages, clear teas, apple juice) until 3 hours prior to surgery with a maximum of 20 ounces. - No food from midnight until time of surgery - Infants may have breast milk until 4 hours before surgery, infant formula 6 hours prior to surgery. - Children will be allowed to drink immediately following surgery. If applicable, please bring a bottle or sippy cup to assist with drinking. Juice, water, soda, and popsicles are readily available. For infants on formula, please bring formula the day of surgery. Pacifiers are allowed. Take the following medications with a SIP of water the morning of surgery: FLUOXETINE,LEVOTHYROXINE DO NOT STOP ANY OF YOUR OTHER PRESCRIPTION MEDICATIONS PRIOR TO SURGERY ?EXCEPT THE FOLLOWING Medications to discontinue per physician ___ALL VITMAINS/SUPPLEMENTS 3 DAYS PRE OP.LAST DOSE11/27/22 HIBICLENS SHOWER DAY BEFORE AND MORNING OF SURGERY BOWEL PREP DR HERRING ENSURE BUNDLE PACK Please no make-up, nail pakistani, hairspray, perfume, deodorant, or body powder the day of surgery. No jewelry (including any body piercings) or valuables the day of surgery, leave them at home. Please take a shower or bath the night before, or the morning of, surgery with an antibacterial soap. Wear comfortable, loose fitting clothing. Children are encouraged to wear pajamas. - Jewelry must be removed prior to entering the operating room. Rings and piercings that are not removed may be cut off. - The hospital will not accept responsibility for valuables. - Please leave all valuables, including medications, at home the day of surgery. If you are going home after surgery, a licensed dedicated regional driver must drive you home. - NO public transportation without another adult if you receive anesthesia. - We recommend that an adult stay with you for 24 hours following discharge. - We also recommend that you do not drive, make important decision, drink alcoholic beverages, or take any drugs that were not prescribed by your health care provider for at least 24 hours after your discharge time. Follow any additional instructions given to you from your surgeon. If you or anyone in your household have experienced Covid symptoms in the past week, please notify your surgeon or the nurse liaison at the phone number below for possible testing. VERBAL AND WRITTEN instructions given to ___PATIENT and asked if any additional questions and then verbalized understanding. Patient advised to call surgeon office or pre surgery nurse liaison [phone] if any additional questions.
[2022-11-22 09:06] VITALS: BP 126/67; PULSE 67; RESP 18; TEMP 36.8; O2SAT 98
--- NOTE | 2022-11-30 14:46 | WPDANESEPPF ---
Anes - Initial Pre Proc Eval Procedure: Operation Date: 12/01/22 07:30 Proposed Procedures p Open Sigmoid Colon Resection with Colorectal Anastomosis, Possible End Colostomy - Drake Go MD s Stent Placement for Abdominal Surgery - Deondre Myles MD Date/Time: 11/30/22 14:46 Surgeon: Drake Go MD Pre Op Diagnosis: perforated sigmoid divertic with pelvice abcess Patient Data Age: 77 Gender: F Height: 1.65 m Weight: 57.9 kg Last Vital Signs Temp 98.2 F 11/22/22 09:06 Pulse 67 11/22/22 09:06 Resp 18 11/22/22 09:06 BP 126/67 11/22/22 09:06 Pulse Ox 98 11/22/22 09:06 O2 Del Method Room Air 11/22/22 09:06 Allergies Allergy/AdvReac Type Severity Reaction Status Date / Time clindamycin AdvReac Unknown Diarrhea Verified 11/22/22 08:16 rosuvastatin AdvReac Unknown DEPRESSED Verified 11/22/22 08:16 MOOD simvastatin AdvReac Unknown DEPRESSED Verified 11/22/22 08:16 MOOD amoxicillin AdvReac Diarrhea Verified 11/22/22 08:16 cephalexin [From Keflex] AdvReac Diarrhea Verified 11/22/22 08:16 diclofenac AdvReac Diarrhea Verified 11/22/22 08:16 Home Medications Medication Instructions Recorded Confirmed Type blood sugar diagnostic #10 ea 07/09/19 10/26/22 History pen needle, diabetic 31 gauge x #100 ea 08/31/20 10/26/22 Rx 3/16 (BD Ultra-Fine Mini Pen Needle) alprazolam 0.5 mg tablet (Xanax) 0.5 mg PO DAILY PRN Anxiety 09/11/22 11/22/22 History fluoxetine 40 mg capsule 40 mg PO QAM 09/11/22 11/22/22 History metformin 500 mg tablet,extended 500 mg PO BID 09/11/22 11/22/22 History release 24 hr celecoxib 100 mg capsule (Celebrex) 100 mg PO DAILY #14 caps 09/26/22 11/22/22 Rx famotidine 20 mg tablet 20 mg PO Q12HR #60 tabs 09/26/22 11/22/22 Rx acetaminophen 500 mg tablet 1,000 mg PO Q6H 09/29/22 11/22/22 History latanoprost 0.005 % eye drops 1 drp EACH EYE QHS 09/29/22 11/22/22 History promethazine 25 mg tablet 25 mg PO Q4H PRN nausea #30 tabs 10/17/22 11/22/22 Rx insulin glargine 100 unit/mL (3 11 unit (0.11 mL) subcut QAM #15 mL 10/27/22 11/22/22 Rx mL) subcutaneous pen (Lantus Solostar U-100 Insulin) aspirin 81 mg chewable tablet 81 mg PO DAILY 11/01/22 11/22/22 History fluconazole 100 mg tablet 100 mg PO DAILY #14 tabs 11/08/22 11/22/22 Rx (Diflucan) ciprofloxacin HCl 500 mg tablet 500 mg PO Q12H #28 tabs 11/14/22 11/22/22 Rx (Cipro) metronidazole 500 mg tablet 500 mg PO .COMPLEX #3 tabs 11/14/22 11/22/22 Rx valacyclovir 1 gram tablet See Rx Instructions .Route 11/20/22 11/22/22 Rx .COMPLEX #100 tabs Lactobacillus 1 cap PO DAILY 11/22/22 11/22/22 History acidophilus-Bifidobac.animalis 2.5 billion cell capsule (Daily Probiotic) multivitamin 1 tablet PO DAILY 11/22/22 11/22/22 History levothyroxine 112 mcg tablet 112 mcg PO QAM #30 tabs 11/27/22 Rx (Synthroid) tramadol 50 mg tablet 50 mg PO Q6H PRN Pain #60 tabs 11/29/22 Rx tramadol 50 mg tablet 100 mg PO TID PRN pain #180 tabs 11/30/22 Rx Patient hx anesthesia problems: post op nausea/vomiting Family hx anesthesia problems: none Results Review: All pre-operative results and documents have been reviewed as part of the pre-operative evaluation. [facility] Past Medical History Medical History Basal cell carcinoma of skin of lip COVID-19 (09/2021) Depression Dyslipidemia Hypothyroidism Insulin dependent diabetes mellitus Irritable bowel syndrome with diarrhea Surgical History Surgical History History of arthroplasty of right knee (09/25/22) History of bladder surgery A&P repair History of hysterectomy History of partial thyroidectomy Right lobe. History of tonsillectomy and adenoidectomy Family History Family History Mother , age 85 Diabetes mellitus Alzheimer's disease Father , ag
[2022-12-01] VITALS (15 sets, daily range): BP systolic 130–160; BP diastolic 60–77; PULSE 63–83; RESP 8–20; TEMP 36.4–36.9; O2SAT 93–100; BMI 19.7
--- NOTE | ~2022-12-01 | XR_ITS ---
EXAMINATION: XR retrograde pyelo w/stent BI DATE: 12/01/2022 08:16 INDICATION: Bilateral ureteral stent placement for planned abdominal surgery. TECHNIQUE: 3 fluoroscopic images of the abdomen were obtained during procedure performed by Dr. Zeeshan waterman. Radiologist was not present for the imaging or procedure. The amount of fluoroscopy time used du ring this procedure was 0.8 minutes. COMPARISON: None. FINDINGS: Images demonstrate placement of bilateral internal ureteral stents with distal tips at the level of the bilateral ureteropelvic junctions. Retrograde contrast injection into the bilateral marielos l collecting systems demonstrates normal configuration with no hydronephrosis. IMPRESSION: 1. Bilateral ureteral stent placement with distal tips at the bilateral ureteropelvic junctions. Reviewed, dictated and finalized at location A. IMPRESSION: 1. Bilateral ureteral stent placement with distal tips at the bilateral uretero pelvic junctions.
--- NOTE | ~2022-12-01 | CT_ITS ---
EXAMINATION: CT brain wo con DATE: 12/02/2022 11:21 INDICATION: Altered mental status TECHNIQUE: Computed tomography (CT) of the head was performed without intravenous contrast. The dose- length product was 605.33 mGy-cm. Automated exposure control and iterative reconstruction technique w ere employed. COMPARISON: MRI brain dated 07/21/[address] brain dated 11/16/2010 FINDINGS: Mild generalized atrophy. No ventriculomegaly or midline shift. Basilar cisterns are patent . There is intracranial atherosclerosis. No acute infarction, hemorrhage, mass or mass effect. There are scattered mild periventricular and subcortical white matter changes, most likely related to small vessel ischemic disease (microangiopathy). Paranasal sinuses and mastoids are pneumatized. No depressed skull fractures. IMPRESSION: 1. No acute intracranial abnormality. 2: Chronic age-related findings. Reviewed, dictated and finalized at location A.
[2022-12-01] MEDS: LACTATED RINGERS 1,000 ML 30 ML IV CONT ×2 (06:30→12:14)
[2022-12-01] MEDS: ALVIMOPAN 12 MG CAPSULE PO (06:34)
[2022-12-01] MEDS: ACETAMINOPHEN 500 MG TABLET 1000 MG PO ×2 (06:34→21:52)
[2022-12-01] MEDS: ONDANSETRON INJ 4 MG/2 ML VIAL IV PUSH ×2 (07:00→17:39)
[2022-12-01] MEDS: KETOROLAC 15 MG/ML VIAL (*BKC) IV PUSH (07:00)
[2022-12-01] MEDS: SCOPOLAMINE 1.5 MG PATCH TRANSDERM (07:00)
[2022-12-01 07:03] LABS: Glucose Point of Care 162 mg/dl (65-105)
--- NOTE | 2022-12-01 07:09 | WPDHPUPDATE1 ---
History and Physical Update Update Date/Time: 12/01/22 07:09 History and Physical has been reviewed, including an updated exam of the patient. There are NO changes in the patient's condition. Risks, benefits, and alternatives have been discussed and questions answered. Patient agrees to proceed with procedure. Proceed with cysto, bilateral retrogrades, bilateral ureteral stent placement.
--- NOTE | 2022-12-01 07:26 | WPDHPUPDATE1 ---
History and Physical Update Update Date/Time: 12/01/22 07:26 History and Physical has been reviewed, including an updated exam of the patient. There are NO changes in the patient's condition. Risks, benefits, and alternatives have been discussed and questions answered. Patient agrees to proceed with procedure.
[2022-12-01] MEDS: ceFAZolin 2 GM/D5W 50 ML 2 GM/50 ML BAG IVPB (07:31)
[2022-12-01] MEDS: metroNIDAZOLE 500 MG/ISO 100ML 500 MG/100 ML BAG 100 MG IVPB (08:02)
--- NOTE | 2022-12-01 08:50 | P.OP_ITS ---
Procedure Note - Detailed Date of Procedure 12/01/22 Pre-op Diagnosis perforated sigmoid divertic with pelvice abcess Post-op Diagnosis Same Procedure Performed Cystoscopy, bilateral retrogrades, bilateral external ureteral stent placement 5 [place] Surgeon Deondre Myles MD Anesthesia General Description of Procedure Patient is taken the operative suite in anticipation of a bowel resection. Once anesthesia was obtained she was placed in a dorsal lithotomy position and prepped and draped usual sterile fashion. Twenty-two [place] scope was inserted into the bladder. There were no tumors noted. Both ureteral orifices normal anatomic position. Five [place] ureteral catheters were inserted into the ureteral orifice ease and pyelograms were performed bilaterally. There was no filling defects noted. Catheters were advanced all the way up to the renal pelvis. Scope was removed. 2% viscous lidocaine was inserted urethra. Sixteen [place] was placed with 10 cc in the balloon. The stents were then secured to the [place] catheter. At this point Dr. Go performed his portion of the surgery and will dictated. He will remove the stents at termination of procedure. This completes dictation please send a copy to my office Estimated Blood Loss 0 Drains Yes Packing No Pathology None sent Complications No immediate complications Condition Stable
[2022-12-01] MEDS: LIDOCAINE HCL 2% GEL UROJET 10 ML PKG MUCOUS MEM (09:39)
[2022-12-01] MEDS: BUPivacaine HCL 0.5% PF 30 ML VIAL INFILTRATE (11:29)
[2022-12-01 12:32] LABS: Glucose Point of Care 293 mg/dl (65-105)
[2022-12-01] MEDS: fentaNYL CITRATE INJ (*CRX) 100 MCG/2 ML VIAL 25 MCG IV PUSH ×2 (12:39→12:42)
--- NOTE | 2022-12-01 13:41 | PM.OP ---
Procedure Note - Brief Procedure Note - Brief Date of procedure: 12/01/22 perforated sigmoid divertic with pelvice abcess Procedure performed: Low anterior rectosigmoid bowel resection with end-to-end stapled EEA anastomosis and drainage of pelvic abscesses x3, incidental appendectomy Surgeon: Drake Go MD Joggle Press Operator: Dirk Marc MD Anesthesia: GETA Implants: none Estimated blood loss (mL): 150 Drains: Yes ( 19 Greek PRASHANT drain pelvis x1) Packing: No Pathology: Yes ( rectosigmoid colon to pathology) Complications: No immediate complications Condition: Stable Disposition: PACU
[2022-12-01] MEDS: INSULIN HUMAN REGULAR (*BKC) 100 UNITS/ML 11 UNITS SUB-Q (13:50)
--- NOTE | 2022-12-01 14:15 | W.PM.PROC2 ---
Procedure Note - Detailed Date of Procedure 12/01/22 Pre-op Diagnosis Perforated sigmoid diverticulitis with pelvic abscess. Post-op Diagnosis Same Procedure Performed Low anterior rectosigmoid bowel resection with end-to-end 31 EEA stapled anastomosis and drainage of chronic pelvic abscesses x3. Incidental appendectomy. Surgeon Drake Go MD Manager Development Dirk Marc MD Anesthesia General Indications patient is a 77-year-old female who was admitted to the hospital with perforated sigmoid diverticulitis and pelvic abscesses about 6 weeks ago. She was initially managed with IV antibiotics, bowel rest, and drainage of the pelvic abscesses with CT-guided drains. She was successfully managed with nonoperative therapy and the pelvic drains were eventually removed. She was on extended course of oral antibiotics. She now presents for definitive resection of area of sigmoid diverticulitis with colorectal anastomosis. Findings The patient had 3 chronic abscesses in her pelvis. One was anterior to the rectosigmoid junction and behind the uterus. Other abscesses include 1 of the right pelvis near the right ovary and fallopian tube. Another abscess was in the left side of the pelvis in the left fallopian tube and ovary. Severe chronic inflammation the pelvis extending from the mid sigmoid colon all the way to the proximal 3rd of the rectum. No liver masses by inspection or palpation. No gastric masses either. The small bowel appeared to be normal. Description of Procedure After informed consent was obtained the patient is brought to the operating room where she was placed in the low lithotomy position on operating table and placed under general endotracheal anesthesia. Dr. Myles from the urology service then came in to the operating room and placed bilateral ureteral stents for pelvic surgery. That portion of his procedure has been dictated separately. He also placed a Worthington catheter at that time. Once the ureteral stents had been placed I then entered into the operating room and rectal washout was performed and a catheter was placed to gravity bag drainage. An orogastric tube was placed and the knee abdomen and perineal region was then prepped and draped in usual sterile fashion. A time-out was then performed correctly identifying the patient as well as procedure to be performed. She was given perioperative IV antibiotics. I then started to make a generous midline incision starting in the mid epigastric region of the abdomen extending all way down to the pubic symphysis. Dissection was carried down through the subcutaneous tissue with electrocautery and the abdomen was entered just at the umbilicus. Then opened up the midline fascia the mesh the length of my skin incision. A Amilcar retractor was placed to aid with exposure. I then proceeded to take down adhesions between the small bowel and peritoneum and some adhesions of the omentum to the abdominal sidewall in order to pack the small bowel up into the upper portions of the abdomen. This was done with electrocautery without difficulty. Once I had all the small bowel out of the pelvis until there was severe chronic inflammation in the pelvis from her previous acute sigmoid diverticulitis with perforation. Dr. Marc then entered the operating room and assisted me with the rest of the procedure. We then proceeded to mobilize the sigmoid colon at the pelvic inlet and dissected on both sides of the colon and found 3 separate chronic abscesses in the pelvis. These abscesses were drained. I then continued dissection of the mid and distal sigmoid colon down to the cul-de-sac and due to the previous acute infection this dissection was difficult due to the chronically indurated tissue. We were able to palpate both ureters due to having stents within them. Both ureters were preserved without any injury during the surgery. We then entered the presacral space just at the sacral promontory
--- NOTE | 2022-12-01 14:35 | PC.NURSE ---
This patient, Stephania Benjamin, was admitted to Medical Room 248-. Patient/family oriented to hospital policies and general routines including ID bracelet, bed and alarms, visiting hours, pain management, procedures, bathroom and other care routines, personal items, smoking policy, room service/diet, and visiting hours. Information on how to activate the Rapid Response Team has been discussed. Patient/Family are encouraged to report perceived risks to care and to ask questions if they do not understand what they are told or what they should do.
[2022-12-01] MEDS: KCL 40 MEQ/0.9% SOD CHL 1,000 ML 100 ML IV CONT (15:36)
[2022-12-01] MEDS: PROMETHAZINE HCL 25 MG TABLET PO ×2 (16:10→22:14)
[2022-12-01 17:03] LABS: Glucose Point of Care 226 mg/dl (65-105)
[2022-12-01 18:10] LABS: Glucose Point of Care 214 mg/dl (65-105)
[2022-12-01] MEDS: INSULIN ASPART (*BKC) 100 UNITS/ML SUB-Q (18:13)
[2022-12-01] MEDS: metroNIDAZOLE 250 MG TABLET 500 MG PO (21:52)
[2022-12-01] MEDS: LATANOPROST 0.005% OP SOLN 2.5 ML BTL 1 DROP EACH EYE (21:53)
[2022-12-01] MEDS: CIPROFLOXACIN 500 MG TAB PO (21:53)
[2022-12-01 22:07] LABS: Glucose Point of Care 155 mg/dl (65-105)
[2022-12-02] MEDS: KCL 40 MEQ/0.9% SOD CHL 1,000 ML 100 ML IV CONT ×2 (03:37→16:08)
[2022-12-02 05:29] VITALS: BP 188/79; PULSE 70; RESP 16; TEMP 36.7; O2SAT 100
[2022-12-02] MEDS: metroNIDAZOLE 250 MG TABLET 500 MG PO ×3 (05:44→21:19)
[2022-12-02] MEDS: ACETAMINOPHEN 500 MG TABLET 1000 MG PO ×3 (05:44→21:19)
[2022-12-02 06:30] LABS: Basophils Percent Auto 0.2 % (0.2-1.2); Hematocrit 33.1 % (37.0-47.0); Hemoglobin 10.5 g/dL (12.0-15.0); Immature Granulocyte Absolute 0.14 K/mm3 (0.00-0.031); Immature Granulocyte Percent A 0.6 % (0-0.5); Lymphocytes Absolute Auto 1.52 K/mm3 (0.9-3.2); Lymphocytes Percent Auto 6.8 % (18.3-44.2); Mean Corpuscular HGB Conc 31.7 g/dl (32-36); Mean Corpuscular Hemoglobin 27.5 pg (26-34); Mean Corpuscular Volume 86.6 fl (80-100); Mean Platelet Volume 8.4 fl (7.4-10.4); Monocytes Absolute Auto 0.8 K/mm3 (0.1-0.6); Monocytes Percent Auto 3.7 % (2.6-8.5); Neutrophils Percent Auto 88.7 % (45.5-73.1); Platelet Count Result 674 k/mm3 (150-375); Red Blood Count 3.82 M/mm3 (4.2-5.4); Red Cell Distribution Width 15.1 % (11.5-14.5); White Blood Count 22.5 K/mm3 (4.5-10.0)
[2022-12-02 06:51] LABS: Alanine Aminotransferase 26 U/L (6-35); Anion Gap 3 mmol/L (8-16); Aspartate Amino Transferase 38 U/L (14-36); Bilirubin,Total 0.5 mg/dL (0.2-1.3); Blood Urea Nitrogen 9 mg/dL (7-17); Carbon Dioxide 29 mmol/L (22-30); Chloride 100 mmol/L (98-107); Estimated CRCL calculation 84 ml/min; Estimated Glomerular Filt Rate > 60; Glucose 193 mg/dL (65-110); Potassium 4.2 mmol/L (3.4-5.0); Sodium 132 mmol/L (137-145)
[2022-12-02 06:52] LABS: Albumin Level 3.4 g/dL (3.5-5.1); Alkaline Phosphatase 91 U/L (38-126)
[2022-12-02 07:15] LABS: Burr Cells 2+ (NORMAL); Platelet Estimate Increased (Adequate); Schistocytes None Seen (NORMAL)
[2022-12-02] MEDS: ASPIRIN 81 MG CHEWABLE TABLET PO (08:48)
[2022-12-02] MEDS: CIPROFLOXACIN 500 MG TAB PO ×2 (08:48→21:19)
[2022-12-02] MEDS: PANTOPRAZOLE 40 MG TABLET PO (08:49)
[2022-12-02] MEDS: MULTIVITAMINS THERAPEUTIC TAB (*BKC) 1 TABLET PO (08:49)
[2022-12-02] MEDS: PROMETHAZINE HCL 25 MG TABLET PO (08:50)
[2022-12-02 09:00] VITALS: BP 168/85; PULSE 67; RESP 16; TEMP 36.8; O2SAT 98
[2022-12-02 09:10] LABS: Glucose Point of Care 197 mg/dl (65-105)
--- NOTE | 2022-12-02 11:27 | PM.PNGS ---
Progress Note: A&P Assessment and Plan (1) Diverticulitis of large intestine with perforation and abscess: Qualifiers: Diverticulitis bleeding: without bleeding Qualified Code(s): K57.20 - Diverticulitis of large intestine with perforation and abscess without bleeding Code(s): K57.20 - Diverticulitis of large intestine with perforation and abscess without bleeding Status: Acute Assessment and Plan: shade full liquids, cont for now, await ROBF (2) Mental status alteration: Code(s): R41.82 - Altered mental status, unspecified Status: Acute Assessment and Plan: will get CT head, medical consutation Subjective Subjective Date/Time Seen: 12/02/22 11:27 somewhat confused this morning, some incisional soreness, minimal narcotic use Review of Systems Review of Systems: All systems reviewed & are unremarkable except as noted in HPI and below Exam Const: General: cooperative, comfortable, no acute distress and confusion Orientation/consciousness: oriented to person, oriented to place, oriented to time and confusion HENMT: Head: normal to inspection, normocephalic and atraumatic Eyes: General: appearance normal, both eyes and all related structures Neck: Neck: normal visual inspection, full ROM and no lymphadenopathy Resp: Auscultation: clear to auscultation bilaterally Cardio: Rate: regular rate Rhythm: regular rhythm GI: Inspection: normal to inspection, distended and incision GI Palp: Yes abdominal tenderness, Yes Soft to palpation, Yes Tenderness to palpation present (GI), No Guarding due to palpation present (GI) and No Rigid due to palpation Objective Data Vital Signs Vital Signs: Vital Signs - 24 hr 12/01/22 12:20 12/01/22 12:35 12/01/22 12:50 Temperature 36.9 C Pulse Rate 71 74 74 Respiratory Rate 10 L 8 L 12 Blood Pressure 131/67 139/69 Pulse Oximetry 100 97 99 Oxygen Delivery Simple Face Mask Simple Face Mask Simple Face Mask Oxygen Flow Rate 8 8 8 12/01/22 13:05 12/01/22 13:20 12/01/22 13:35 Temperature Pulse Rate 79 71 78 Respiratory Rate 13 8 L 12 Blood Pressure 135/67 137/66 131/63 Pulse Oximetry 94 96 97 Oxygen Delivery Room Air Room Air Room Air Oxygen Flow Rate 12/01/22 13:50 12/01/22 14:05 12/01/22 14:30 Temperature 36.9 C Pulse Rate 74 83 71 Respiratory Rate 20 15 14 Blood Pressure 130/68 142/72 H 139/60 Pulse Oximetry 97 96 97 Oxygen Delivery Room Air Room Air Oxygen Flow Rate 12/01/22 17:23 12/01/22 14:45 12/01/22 15:15 Temperature 36.6 C 36.7 C 36.6 C Pulse Rate 71 72 72 Respiratory Rate 18 16 16 Blood Pressure 148/66 H 138/62 140/66 Pulse Oximetry 98 97 98 Oxygen Delivery Room Air Oxygen Flow Rate 12/01/22 21:12 12/01/22 23:57 12/01/22 21:30 Temperature 36.5 C 36.7 C Pulse Rate 65 63 Respiratory Rate 16 16 Blood Pressure 140/68 160/68 H Pulse Oximetry 99 93 Oxygen Delivery Room Air Oxygen Flow Rate 12/02/22 05:29 12/02/22 08:46 Temperature 36.7 C Pulse Rate 70 Respiratory Rate 16 Blood Pressure 188/79 H Pulse Oximetry 100 Oxygen Delivery Room Air Oxygen Flow Rate Intake/Output Intake/Output: Intake & Output 11/29/22 11/30/22 12/01/22 12/02/22 23:59 23:59 23:59 23:59 Intake Total 2100 1290 Output Total 45 530 Balance 2057 760 Meds/Results Medications: Active Medications Generic Name Dose Route Start Last Admin Trade Name Freq PRN Reason Stop Dose Admin Acetaminophen 1,000 mg 12/01/22 14:17 12/02/22 05:44 Acetaminophen 500 Mg Tablet PO 1,000 mg Q8H AYDEE Administration Alprazolam 0.5 mg 12/01/22 14:17 Alprazolam (*Crx) 0.5 Mg Tablet PO DAILY PRN Anxiety Aspirin 81 mg 12/02/22 09:00 12/02/22 08:48 Aspirin 81 Mg Chewable Tablet PO 81 mg DAILY AYDEE Administration Ciprofloxacin 500 mg 12/01/22 21:00 12/02/22 08:48 Ciprofloxacin 500 Mg Tab PO 500 mg Q12HR AYDEE Administration Dextrose 1
[2022-12-02] MEDS: INSULIN ASPART (*BKC) 100 UNITS/ML SUB-Q ×3 (12:26→21:23)
[2022-12-02 12:53] LABS: Glucose Point of Care 217 mg/dl (65-105)
[2022-12-02 14:00] VITALS: BP 165/73; PULSE 67; RESP 16; TEMP 36.9; O2SAT 99
--- NOTE | 2022-12-02 15:07 | PCPTNOTE ---
Attempted to do evaluation this afternoon, but patient declines, will attempt again tomorrow.
[2022-12-02 17:19] LABS: Glucose Point of Care 206 mg/dl (65-105)
--- NOTE | 2022-12-02 17:22 | PM.IMCN ---
Assessment and Plan Assessment and plan (1) Mental status alteration: Code(s): R41.82 - Altered mental status, unspecified Status: Acute Assessment and Plan: the patient has been taking Phenergan which can cause some confusion and disorientation he can also cause some extra by radio symptoms. I am going to hold that for now. Her CT of her brain was found to be negative. It could possibly Be related to pain medication or anesthesia. The patient is alert orientated to person place and time. She is answering questions without difficulty at this time. The patient admits that she has been having hallucinations since her surgery. She also stated that she was very forgetful today. (2) H/O cystoscopy: Code(s): Z98.890 - Other specified postprocedural states Status: Acute Assessment and Plan: Postprocedure care per Urology. (3) History of bowel resection: Code(s): Z90.49 - Acquired absence of other specified parts of digestive tract Status: Acute Assessment and Plan: Postop care per surgery pain control per surgery she has hydromorphone, oxycodone, and tramadol DVT prophylaxis per surgery. She currently has SCDs , heparin and aspirin I did order blood cultures as her white count is elevated to 22.5. antibiotics per surgery. The patient was continued with ciprofloxacin p.o. and she is on Flagyl p.o. as well (4) Anemia: Qualifiers: Anemia type: unspecified type Qualified Code(s): D64.9 - Anemia, unspecified Code(s): D64.9 - Anemia, unspecified Status: Acute Assessment and Plan: her H&H is 10.5 and 33.1 which is her baseline. Please continue to monitor. (5) Postoperative nausea and vomiting: Code(s): R11.2 - Nausea with vomiting, unspecified; Z98.890 - Other specified postprocedural states Status: Acute Assessment and Plan: The patient had been on promethazine however I feel that this may be causing her confusion so I placed that on hold. She is also on Zofran. Continue with scopolamine patch continue with pantoprazole (6) Depression: Qualifiers: Depression Type: major depressive disorder Major depression recurrence: unspecified whether recurrent Psychotic features: without psychotic features Code(s): F32.A - Depression, unspecified Status: Chronic Assessment and Plan: continue with Prozac (7) Hypothyroidism: Qualifiers: Hypothyroidism type: acquired Qualified Code(s): E03.9 - Hypothyroidism, unspecified Code(s): E03.9 - Hypothyroidism, unspecified Status: Chronic Assessment and Plan: may resume Synthroid when okay with surgery (8) Insulin dependent diabetes mellitus: Status: Chronic Assessment and Plan: the patient is refusing the metformin while she is in the hospital. Accu-Cheks AC and HS with sliding scale insulin. HPI Data of Consult Consult date: 12/02/22 Requesting Physician: Drake Go MD Primary Care Provider: Stanley Villa MD Consult Narrative Narrative: Stephania Benjamin is a 77 year old female who was seen on 11/08/[address] Go. The patient had a previous CT scan on 11/07/2022 that shows improved multiloculated pelvic abscesses compared to 10/18/2022. At that time there is minimal drainage from both drains. She was eating more but is frequently using the restroom. She has had loose stools. The abscess drains had to be replaced by radiologist on 10/20/2022. On 12/01/2022 the patient had a perforated sigmoid diverticula with pelvic abscess and a cystoscopy, bilateral retrogrades, bilateral external ureteral stent was placed by Dr. Myles. Also on that day the patient had lower anterior a retrosigmoid in bowel resection and end-to-end stapled EEA anastomosis and drainage of pelvic abscess x3 incidental appendectomy Per Dr. Go. see operative note. Today the patient was somewhat confused
[2022-12-02 18:05] VITALS: BP 161/74; PULSE 68; RESP 18; TEMP 36.9; O2SAT 98
--- NOTE | 2022-12-02 18:29 | WPDANESPN ---
Anes - Prog Note Post-Op Date/Time: 12/02/22 18:29 Cardiovascular status: normal Respiratory status: normal Airway patency: baseline Mental status: baseline Post-Op hydration status: normal Vital Signs: Last Vital Signs Temp 36.9 C 12/02/22 14:00 Pulse 67 12/02/22 14:00 Resp 16 12/02/22 14:00 BP 165/73 H 12/02/22 14:00 Pulse Ox 99 12/02/22 14:00 O2 Del Method Room Air 12/02/22 08:46 O2 Flow Rate 8 12/01/22 12:50 Pain Score (VAS): 0 I/O: Intake & Output 12/02/22 12/02/22 12/02/22 07:59 15:59 23:59 Intake Total 1050 1240 Output Total 530 Balance 520 1240 Laboratory Tests 12/02/22 05:59 12/02/22 05:59 12/01/22 12/02/22 12/02/22 21:50 05:59 08:51 WBC 22.5 H RBC 3.82 L Hgb 10.5 L Hct 33.1 L MCV 86.6 MCH 27.5 MCHC 31.7 L RDW 15.1 H Plt Count 674 H MPV 8.4 Immature Gran % (Auto) 0.6 H Neut % (Auto) 88.7 H Lymph % (Auto) 6.8 L Dickinson % (Auto) 3.7 Eos % (Auto) 0.0 Baso % (Auto) 0.2 Lymph # (Auto) 1.52 Dickinson # (Auto) 0.8 H Eos # (Auto) 0.0 Baso # (Auto) 0.0 Abs Immat Gran (auto) 0.14 H Absolute Neuts (auto) 20.0 H Absolute Nucleated RBC 0.0 Nucleated RBC % 0.0 Platelet Estimate Increased [place] Cells 2+ Schistocytes None seen Sodium 132 L Potassium 4.2 Chloride 100 Carbon Dioxide 29 Anion Gap 3 L BUN 9 Creatinine 0.40 L Estim Creat Clear Calc 84 Estimated GFR > 60 Glucose 193 H POC Capillary Glucose 155 H 197 H Calcium 9.0 Total Bilirubin 0.5 AST 38 H ALT 26 Alkaline Phosphatase 91 Total Protein 6.0 L Albumin 3.4 L 12/02/22 12/02/22 12:23 17:15 WBC RBC Hgb Hct MCV MCH MCHC RDW Plt Count MPV Immature Gran % (Auto) Neut % (Auto) Lymph % (Auto) Dickinson % (Auto) Eos % (Auto) Baso % (Auto) Lymph # (Auto) Dickinson # (Auto) Eos # (Auto) Baso # (Auto) Abs Immat Gran (auto) Absolute Neuts (auto) Absolute Nucleated RBC Nucleated RBC % Platelet Estimate [place] Cells Schistocytes Sodium Potassium Chloride Carbon Dioxide Anion Gap BUN Creatinine Estim Creat Clear Calc Estimated GFR Glucose POC Capillary Glucose 217 H 206 H Calcium Total Bilirubin AST ALT Alkaline Phosphatase Total Protein Albumin Post-procedural complaints: none Patient Feedback: Patient satisfied with anesthetic care.
[2022-12-02] MEDS: ONDANSETRON INJ 4 MG/2 ML VIAL IV PUSH (19:44)
[2022-12-02] MEDS: traMADol HCL (*CRX) 50 MG TABLET PO (20:17)
[2022-12-02 20:38] VITALS: BP 182/70; PULSE 66; RESP 16; TEMP 37.2; O2SAT 96
[2022-12-02] MEDS: ALPRAZolam (*CRX) 0.5 MG TABLET PO (21:19)
[2022-12-02] MEDS: HEPARIN SODIUM 5,000 UNITS/ML VIAL 5000 UNITS SUB-Q (21:20)
[2022-12-02] MEDS: LATANOPROST 0.005% OP SOLN 2.5 ML BTL 1 DROP EACH EYE (21:20)
[2022-12-02 22:57] VITALS: BP 164/62; PULSE 75; RESP 14; TEMP 37.2; O2SAT 97
[2022-12-02 22:58] LABS: Glucose Point of Care 212 mg/dl (65-105)
[2022-12-03 01:40] VITALS: BP 168/64; PULSE 64; RESP 16; TEMP 37.1; O2SAT 94
[2022-12-03] MEDS: traMADol HCL (*CRX) 50 MG TABLET PO (03:21)
[2022-12-03] MEDS: KCL 40 MEQ/0.9% SOD CHL 1,000 ML 100 ML IV CONT ×2 (05:15→15:38)
[2022-12-03] MEDS: ACETAMINOPHEN 500 MG TABLET 1000 MG PO ×3 (05:17→21:17)
[2022-12-03] MEDS: metroNIDAZOLE 250 MG TABLET 500 MG PO ×3 (05:17→21:17)
[2022-12-03 06:09] VITALS: BP 172/78; PULSE 78; RESP 16; TEMP 37.1; O2SAT 98
[2022-12-03 08:21] LABS: Glucose Point of Care 186 mg/dl (65-105)
[2022-12-03] MEDS: HEPARIN SODIUM 5,000 UNITS/ML VIAL 5000 UNITS SUB-Q ×2 (08:36→21:16)
[2022-12-03] MEDS: CIPROFLOXACIN 500 MG TAB PO ×2 (08:36→21:17)
[2022-12-03] MEDS: ASPIRIN 81 MG CHEWABLE TABLET PO (08:36)
[2022-12-03] MEDS: PANTOPRAZOLE 40 MG TABLET PO (08:36)
[2022-12-03] MEDS: MULTIVITAMINS THERAPEUTIC TAB (*BKC) 1 TABLET PO (08:36)
[2022-12-03] MEDS: amLODIPine BESYLATE 5 MG TABLET 10 MG PO (09:52)
--- NOTE | 2022-12-03 10:32 | PM.PNGS ---
Progress Note: A&P Assessment and Plan (1) History of bowel resection: Code(s): Z90.49 - Acquired absence of other specified parts of digestive tract Status: Acute Assessment and Plan: doing well, will advance to diabetic diet, cont to encourage OOB/IS (2) Confusion: Code(s): R41.0 - Disorientation, unspecified Status: Acute Assessment and Plan: resolved, CT head neg Subjective Subjective Date/Time Seen: 12/03/22 10:32 Interval history: much less confused, up and ambulating c PT this am, pain controlled, shade full liquids Review of Systems Review of Systems: All systems reviewed & are unremarkable except as noted in HPI and below Exam Const: General: cooperative, comfortable and no acute distress Resp: Auscultation: clear to auscultation bilaterally Cardio: Rate: regular rate Rhythm: regular rhythm GI: Inspection: normal to inspection, distended and incision GI Palp: Yes abdominal tenderness, Yes Soft to palpation, Yes Tenderness to palpation present (GI), No Guarding due to palpation present (GI) and No Rigid due to palpation Other: PRASHANT c s/s output Objective Data Vital Signs Vital Signs: Vital Signs - 24 hr 12/02/22 14:00 12/02/22 18:05 12/02/22 20:38 Temperature 36.9 C 36.9 C 37.2 C Pulse Rate 67 68 66 Respiratory Rate 16 18 16 Blood Pressure 165/73 H 161/74 H 182/70 H Pulse Oximetry 99 98 96 Oxygen Delivery 12/02/22 22:57 12/03/22 01:40 12/03/22 06:09 Temperature 37.2 C 37.1 C 37.1 C Pulse Rate 75 64 78 Respiratory Rate 14 16 16 Blood Pressure 164/62 H 168/64 H 172/78 H Pulse Oximetry 97 94 98 Oxygen Delivery 12/03/22 09:32 Temperature Pulse Rate Respiratory Rate Blood Pressure Pulse Oximetry Oxygen Delivery Room Air Intake/Output Intake/Output: Intake & Output 11/30/22 12/01/22 12/02/22 12/03/22 23:59 23:59 23:59 23:59 Intake Total 2100 2910 1400 Output Total 45 960 300 Balance 2055 1950 1100 Meds/Results Medications: Active Medications Generic Name Dose Route Start Last Admin Trade Name Freq PRN Reason Stop Dose Admin Acetaminophen 1,000 mg 12/01/22 14:17 12/03/22 05:17 Acetaminophen 500 Mg Tablet PO 1,000 mg Q8H AYDEE Administration Alprazolam 0.5 mg 12/01/22 14:17 12/02/22 21:19 Alprazolam (*Crx) 0.5 Mg Tablet PO 0.5 mg DAILY PRN Administration Anxiety Amlodipine Besylate 10 mg 12/03/22 09:00 12/03/22 09:52 Amlodipine Besylate 5 Mg Tablet PO 10 mg QAM AYDEE Administration Aspirin 81 mg 12/02/22 09:00 12/03/22 08:36 Aspirin 81 Mg Chewable Tablet PO 81 mg DAILY AYDEE Administration Ciprofloxacin 500 mg 12/01/22 21:00 12/03/22 08:36 Ciprofloxacin 500 Mg Tab PO 500 mg Q12HR AYDEE Administration Dextrose 12.5 gm 12/01/22 17:04 Dextrose 50% 25 Gm/50 Ml Syringe IV PUSH PRN PRN Hypoglycemia Protocol Fluoxetine HCl 40 mg 12/02/22 09:00 12/02/22 10:46 Fluoxetine Hcl 20 Mg Capsule PO Not Given QAM AYDEE Glucagon 1 mg 12/01/22 17:04 Glucagon For Inj 1 Mg Vial IM PRN PRN Hypoglycemia Protocol Glucose 15 gm 12/01/22 17:04 Glucose Oral Gel 15 Gm Of Glucse In 37.5 Gm Tube PO PRN PRN Hypoglycemia Protocol Heparin Sodium (Porcine) 5,000 units 12/02/22 21:00 12/03/22 08:36 Heparin Sodium 5,000 Units/Ml Vial SUB-Q 5,000 units Q12HR AYDEE Administration Hydralazine HCl 10 mg 12/02/22 21:25 Hydralazine Hcl 20 Mg/Ml Vial IV PUSH Q8H PRN Blood Pressure - High Hydromorphone HCl 1 mg 12/01/22 14:17 Hydromorphone Hcl Inj (*Crx) 1 Mg/Ml Syr IV PUSH Q3H PRN Pain Rated 7-10 Potassium Chloride/Sodium Chloride 1,000 mls @ 100 mls/hr 12/01/22 15:00 12/03/22 05:15 Kcl 40 Meq/Ns IV CONT 100 mls/hr .Q10H AYDEE Administration Dextrose 1,000 mls @ 100 mls/hr 12/01/22 17:04 Dextrose 5% 1,000 Ml IVPB PRN PRN Hypoglycemia Protocol
--- NOTE | 2022-12-03 10:43 | PM.IMPN ---
Progress Note: A&P Assessment and Plan (1) Mental status alteration: Code(s): R41.82 - Altered mental status, unspecified Status: Acute Assessment and Plan: Resolved. Continue to hold Phenergan (2) HTN (hypertension): Code(s): I10 - Essential (primary) hypertension Status: Acute Assessment and Plan: Could be from the surgery. Will put her on Norvasc. She may not need antihypertensive meds when she goes only for blood pressure stays okay (3) H/O cystoscopy: Code(s): Z98.890 - Other specified postprocedural states Status: Acute Assessment and Plan: Postprocedure care per Urology. (4) History of bowel resection: Code(s): Z90.49 - Acquired absence of other specified parts of digestive tract Status: Acute Assessment and Plan: Postop care per surgery pain control per surgery she has hydromorphone, oxycodone, and tramadol DVT prophylaxis per surgery. She currently has SCDs , heparin and aspirin I did order blood cultures as her white count is elevated to 22.5. antibiotics per surgery. The patient was continued with ciprofloxacin p.o. and she is on Flagyl p.o. as well (5) Depression: Qualifiers: Depression Type: major depressive disorder Major depression recurrence: unspecified whether recurrent Psychotic features: without psychotic features Code(s): F32.A - Depression, unspecified Status: Chronic Assessment and Plan: continue with Prozac (6) Hypothyroidism: Qualifiers: Hypothyroidism type: acquired Qualified Code(s): E03.9 - Hypothyroidism, unspecified Code(s): E03.9 - Hypothyroidism, unspecified Status: Chronic Assessment and Plan: may resume Synthroid when okay with surgery (7) Insulin dependent diabetes mellitus: Status: Chronic Assessment and Plan: the patient is refusing the metformin while she is in the hospital. Accu-Cheks AC and HS with sliding scale insulin. Subjective Date/time seen: 12/03/22 10:43 Interval history: Patient does not appear confused this morning Review of Systems Review of Systems: All systems reviewed & are unremarkable except as noted in HPI and below Exam Const: General: cooperative, healthy appearing, comfortable, no acute distress, well developed, awake, Physically active, average body habitus and well nourished Nutritional Appearance: average body habitus and well nourished Orientation/consciousness: oriented to person, oriented to place, oriented to time and patient oriented x3 Limitations: no limitations HENMT: Head: normal to inspection, No palpable skull fracture present, normocephalic and atraumatic Ears: hearing grossly normal bilaterally and external ears normal Face/Nose/Sinus: Normal external nose present and Normal nares present Eyes: General: appearance normal, both eyes and all related structures Alignment and Position: alignment normal Periorbital: periorbital findings normal Eyelids: eyelids normal Sclera: sclerae normal Pupils: Equal, round and reactive pupils present EOM: EOMs intact bilaterally Neck: Neck: normal visual inspection, full ROM, no lymphadenopathy, trachea midline and supple Chest: Chest palpation & inspection: normal inspection of the chest Resp: Effort & Inspection: normal respiratory effort Auscultation: clear to auscultation bilaterally Cardio: Palpation: normal PMI Rate: regular rate Rhythm: regular rhythm Heart sounds: S1 normal heart sound present and S2 normal heart sound present Peripheral pulses: Peripheral pulses 2+ throughout GI: Inspection: normal to inspection Auscultation: normal bowel sounds Rectal Exam: deferred Other: incision well approximated and PRASHANT drain intact with approximately 20 cc bloody drainage. Back/Spine/Pelvis: Back: no CVA tenderness Skin: General skin exam: normal color Lesions: no lesions Rashes: no rashes Trauma: no lac
[2022-12-03 12:16] LABS: Glucose Point of Care 266 mg/dl (65-105)
[2022-12-03] MEDS: INSULIN ASPART (*BKC) 100 UNITS/ML SUB-Q ×2 (12:24→17:17)
[2022-12-03 12:43] VITALS: BP 127/63; PULSE 73; RESP 16; TEMP 36.7; O2SAT 98
[2022-12-03 17:10] LABS: Glucose Point of Care 235 mg/dl (65-105)
[2022-12-03 17:29] VITALS: BP 153/67; PULSE 72; RESP 16; TEMP 36.8; O2SAT 99
[2022-12-03 20:00] VITALS: PULSE 72; RESP 18; O2SAT 98
[2022-12-03 21:09] VITALS: BP 154/64; PULSE 72; RESP 18; TEMP 36.9; O2SAT 98
[2022-12-03] MEDS: ALPRAZolam (*CRX) 0.5 MG TABLET PO (21:16)
[2022-12-03] MEDS: ONDANSETRON INJ 4 MG/2 ML VIAL IV PUSH (21:16)
[2022-12-03] MEDS: LATANOPROST 0.005% OP SOLN 2.5 ML BTL 1 DROP EACH EYE (21:17)
[2022-12-04] MEDS: traMADol HCL (*CRX) 50 MG TABLET PO ×2 (00:18→11:10)
[2022-12-04] MEDS: KCL 40 MEQ/0.9% SOD CHL 1,000 ML 100 ML IV CONT (03:20)
[2022-12-04 05:33] LABS: Hematocrit 33.3 % (37.0-47.0); Hemoglobin 10.5 g/dL (12.0-15.0); Mean Corpuscular HGB Conc 31.5 g/dl (32-36); Mean Corpuscular Hemoglobin 27.3 pg (26-34); Mean Corpuscular Volume 86.7 fl (80-100); Mean Platelet Volume 8.4 fl (7.4-10.4); Platelet Count Result 594 k/mm3 (150-375); Red Blood Count 3.84 M/mm3 (4.2-5.4); Red Cell Distribution Width 14.8 % (11.5-14.5); White Blood Count 14.1 K/mm3 (4.5-10.0)
[2022-12-04 05:42] LABS: Anion Gap 3 mmol/L (8-16); Blood Urea Nitrogen 6 mg/dL (7-17); Calcium 8.6 mg/dL (8.4-10.2); Carbon Dioxide 29 mmol/L (22-30); Chloride 99 mmol/L (98-107); Estimated CRCL calculation 107 ml/min; Estimated Glomerular Filt Rate > 60; Glucose 196 mg/dL (65-110); Sodium 131 mmol/L (137-145)
[2022-12-04] MEDS: metroNIDAZOLE 250 MG TABLET 500 MG PO ×3 (05:42→21:11)
[2022-12-04] MEDS: ACETAMINOPHEN 500 MG TABLET 1000 MG PO ×3 (05:42→21:11)
[2022-12-04 08:46] LABS: Glucose Point of Care 181 mg/dl (65-105)
[2022-12-04 09:19] VITALS: BP 138/63; PULSE 69; O2SAT 98
[2022-12-04] MEDS: PANTOPRAZOLE 40 MG TABLET PO (09:21)
[2022-12-04] MEDS: ASPIRIN 81 MG CHEWABLE TABLET PO (09:21)
[2022-12-04] MEDS: CIPROFLOXACIN 500 MG TAB PO ×2 (09:22→21:12)
[2022-12-04] MEDS: MULTIVITAMINS THERAPEUTIC TAB (*BKC) 1 TABLET PO (09:22)
[2022-12-04] MEDS: amLODIPine BESYLATE 5 MG TABLET 10 MG PO (09:23)
[2022-12-04] MEDS: SCOPOLAMINE 1.5 MG PATCH TRANSDERM (09:31)
[2022-12-04] MEDS: HEPARIN SODIUM 5,000 UNITS/ML VIAL 5000 UNITS SUB-Q ×2 (09:32→21:12)
--- NOTE | 2022-12-04 10:08 | PM.PNGS ---
Progress Note: A&P Assessment and Plan (1) Diverticulitis of large intestine with perforation and abscess: Qualifiers: Diverticulitis bleeding: without bleeding Qualified Code(s): K57.20 - Diverticulitis of large intestine with perforation and abscess without bleeding Code(s): K57.20 - Diverticulitis of large intestine with perforation and abscess without bleeding Status: Acute Assessment and Plan: POD 3 S/P open LAR with colorectal stapled anastomosis, drainage of pelvic abscesses x 3, open incidental appendectomy. She is doing well and starting to pass flatus. Continue diabetic diet and ambulation. [place] not need PT[place] [id number], prior elevation due to post op stress response. Will keep her on oral Cipro and Flagyl for another 5 days due to drainage of pelvic abscesses and recent knee replacement. Ok to transition to home oral meds as per Hospitalist. Probably home tomorrow. Subjective Subjective Date/Time Seen: 12/04/22 10:08 Post Op day: 3 (S/P LAR with colorectal elna anastomosis, incidental appendectomy) Patient reports: no new complaints and tolerating a regular diet Interval history: Pt is doing well. No confusion. WBC down to 14,000, no fever. Up walking in halls without assistance. Only taking Tylenol and Tramadol PO for pain. She is passing flatus but no BM yet. Review of Systems Review of Systems: The remainder of the review of systems to include constitutional, HEENT, cardiovascular, respiratory, GI, , integumentary, musculoskeletal, endocrine, immunologic, hematologic, psychiatric, and neurologic are all negative except for which is mentioned above in the HPI. Exam Const: General: comfortable and no acute distress Neck: Neck: supple and no JVD Resp: Effort & Inspection: normal respiratory effort Auscultation: clear to auscultation bilaterally Cardio: Rate: regular rate Rhythm: regular rhythm GI: Other: Soft, non distended, expected mild tenderness around midline incision. No redness or drainage. PRASHANT drain blood tinged serous, no purulence or feculent material. Good bowel sounds. Neuro: Speech: normal speech Psych: Mental Status: mental status grossly normal Affect: normal affect Objective Data Vital Signs Vital Signs: Vital Signs - 24 hr 12/03/22 12:43 12/03/22 17:29 12/03/22 21:09 Temperature 36.7 C 36.8 C 36.9 C Pulse Rate 73 72 72 Respiratory Rate 16 16 18 Blood Pressure 127/63 153/67 H 154/64 H Pulse Oximetry 98 99 98 Oxygen Delivery 12/03/22 20:00 12/04/22 09:19 Temperature Pulse Rate 72 69 Respiratory Rate 18 Blood Pressure 138/63 Pulse Oximetry 98 98 Oxygen Delivery Room Air Intake/Output Intake/Output: Intake & Output 12/01/22 12/02/22 12/03/22 12/04/22 23:59 23:59 23:59 23:59 Intake Total 2100 2910 5040 1360 Output Total 45 960 300 Balance 2055 1950 4740 1360 Meds/Results Medications: Active Medications Generic Name Dose Route Start Last Admin Trade Name Freq PRN Reason Stop Dose Admin Acetaminophen 1,000 mg 12/01/22 14:17 12/04/22 05:42 Acetaminophen 500 Mg Tablet PO 1,000 mg Q8H AYDEE Administration Alprazolam 0.5 mg 12/01/22 14:17 12/03/22 21:16 Alprazolam (*Crx) 0.5 Mg Tablet PO 0.5 mg DAILY PRN Administration Anxiety Amlodipine Besylate 10 mg 12/03/22 09:00 12/04/22 09:23 Amlodipine Besylate 5 Mg Tablet PO 10 mg QAM AYDEE Administration Aspirin 81 mg 12/02/22 09:00 12/04/22 09:21 Aspirin 81 Mg Chewable Tablet PO 81 mg DAILY AYDEE Administration Ciprofloxacin 500 mg 12/01/22 21:00 12/04/22 09:22 Ciprofloxacin 500 Mg Tab PO 500 mg Q12HR AYDEE Administration Dextrose 12.5 gm 12/01/22 17:04 Dextrose 50% 25 Gm/50 Ml Syringe IV PUSH PRN PRN Hypoglycemia Protocol Fluoxetine HCl 40 mg 12/02/22 09:00 12/02/22 10:46 Fluoxetine Hcl 20 Mg Capsule PO Not Given QAM AYDEE Glucagon
--- NOTE | 2022-12-04 12:06 | PCNFU ---
Nutrition Follow-Up Complete: Unintended weight loss as related to diverticulitis as evidenced by 12% weight loss in 1 month. Goal: Adequate Intake of at least 75% of meals/supplements Patient is meeting goal. No new goal. Pt current nutrition is [facility] Last recorded weight is 53.8 kg. Bowel Motility:Last reported BM 12/02 Labs Reviewed:Glu 196, BUN 6, Na 131, Hct 33.3,Hgb 10.5 Meds Noted:Cipro, Protonix, Flagyl, Heparin Skin:WNL Additional Notes: Patient remains on DBCC diet. Oral intake greater than 75% of meals. Patient is drinking Ensure Compact TID providing an additional 220 kcals and 9 gms protein. Agree with diet orders. RD will monitor weight,labs, oral intake every 7 days.
[2022-12-04 12:14] LABS: Glucose Point of Care 278 mg/dl (65-105)
--- NOTE | 2022-12-04 12:17 | PM.IMPN ---
Progress Note: A&P Assessment and Plan (1) Mental status alteration: Code(s): R41.82 - Altered mental status, unspecified Status: Acute Assessment and Plan: Resolved.secondary to anaesthesia and meds Continue to hold Phenergan (2) HTN (hypertension): Code(s): I10 - Essential (primary) hypertension Status: Acute Assessment and Plan: new diagnosis (3) H/O cystoscopy: Code(s): Z98.890 - Other specified postprocedural states Status: Acute Assessment and Plan: Postprocedure care per Urology. (4) History of bowel resection: Code(s): Z90.49 - Acquired absence of other specified parts of digestive tract Status: Acute Assessment and Plan: Postop care per surgery pain control per surgery she has hydromorphone, oxycodone, and tramadol DVT prophylaxis per surgery. She currently has SCDs , heparin and aspirin I did order blood cultures as her white count is elevated to 22.5. antibiotics per surgery. The patient was continued with ciprofloxacin p.o. and she is on Flagyl p.o. as well c improving (5) Depression: Qualifiers: Depression Type: major depressive disorder Major depression recurrence: unspecified whether recurrent Psychotic features: without psychotic features Code(s): F32.A - Depression, unspecified Status: Chronic Assessment and Plan: continue with Prozac (6) Hypothyroidism: Qualifiers: Hypothyroidism type: acquired Qualified Code(s): E03.9 - Hypothyroidism, unspecified Code(s): E03.9 - Hypothyroidism, unspecified Status: Chronic Assessment and Plan: resume all home meds (7) Insulin dependent diabetes mellitus: Status: Chronic Assessment and Plan: the patient is refusing the metformin while she is in the hospital. Accu-Cheks AC and HS with sliding scale insulin. Subjective Date/time seen: 12/04/22 12:17 Interval history: Patient is feeling much better not confused at all Long discussion with pt and surgeon at bedside POD 3 S/P open LAR with colorectal stapled anastomosis, drainage of pelvic abscesses x 3, open incidental appendectomy. Pt having some abdominal pains but tolerable Review of Systems Review of Systems: Some pains passing gas tolerating diet walking in her room Exam Const: General: cooperative, healthy appearing, comfortable, no acute distress, well developed, awake, Physically active, average body habitus and well nourished Nutritional Appearance: average body habitus and well nourished Orientation/consciousness: oriented to person, oriented to place, oriented to time and patient oriented x3 Limitations: no limitations HENMT: Head: normal to inspection, No palpable skull fracture present, normocephalic and atraumatic Ears: hearing grossly normal bilaterally and external ears normal Face/Nose/Sinus: Normal external nose present and Normal nares present Eyes: General: appearance normal, both eyes and all related structures Alignment and Position: alignment normal Periorbital: periorbital findings normal Eyelids: eyelids normal Sclera: sclerae normal Pupils: Equal, round and reactive pupils present EOM: EOMs intact bilaterally Neck: Neck: normal visual inspection, full ROM, no lymphadenopathy, trachea midline and supple Chest: Chest palpation & inspection: normal inspection of the chest Resp: Effort & Inspection: normal respiratory effort Auscultation: clear to auscultation bilaterally Cardio: Palpation: normal PMI Rate: regular rate Rhythm: regular rhythm Heart sounds: S1 normal heart sound present and S2 normal heart sound present Peripheral pulses: Peripheral pulses 2+ throughout GI: Inspection: normal to inspection Auscultation: normal bowel sounds Rectal Exam: deferred Other: incision well approximated and PRASHANT drain intact withdrainage : General: Yes no CVA tenderness Back/Spine/Pelv
[2022-12-04] MEDS: INSULIN ASPART (*BKC) 100 UNITS/ML SUB-Q ×2 (12:33→17:39)
[2022-12-04] MEDS: FLUCONAZOLE 100 MG TABLET PO (14:43)
[2022-12-04] MEDS: ACIDOPHILUS/BULGARICUS CHEWABLE TABLET 1 TABLET PO (14:44)
[2022-12-04 14:45] VITALS: BP 127/62; PULSE 69; RESP 18; TEMP 36.9; O2SAT 99
[2022-12-04 17:06] LABS: Glucose Point of Care 258 mg/dl (65-105)
[2022-12-04 19:58] VITALS: BP 125/61; PULSE 68; RESP 20; TEMP 36.9; O2SAT 97
[2022-12-04 20:00] VITALS: PULSE 68; RESP 20; O2SAT 97
[2022-12-04] MEDS: ALPRAZolam (*CRX) 0.5 MG TABLET PO (21:12)
[2022-12-04] MEDS: LATANOPROST 0.005% OP SOLN 2.5 ML BTL 1 DROP EACH EYE (21:12)
[2022-12-04] MEDS: FAMOTIDINE 20 MG TABLET PO (21:13)
[2022-12-05 04:30] VITALS: BP 151/80; PULSE 73; RESP 18; TEMP 36.2; O2SAT 100
[2022-12-05 05:11] LABS: Hematocrit 37.2 % (37.0-47.0); Hemoglobin 11.8 g/dL (12.0-15.0); Mean Corpuscular HGB Conc 31.7 g/dl (32-36); Mean Corpuscular Hemoglobin 27.8 pg (26-34); Mean Corpuscular Volume 87.7 fl (80-100); Mean Platelet Volume 8.3 fl (7.4-10.4); Platelet Count Result 705 k/mm3 (150-375); Red Blood Count 4.24 M/mm3 (4.2-5.4)
[2022-12-05 05:27] LABS: Anion Gap 5 mmol/L (8-16); Blood Urea Nitrogen 10 mg/dL (7-17); Carbon Dioxide 32 mmol/L (22-30); Chloride 97 mmol/L (98-107); Estimated CRCL calculation 69 ml/min; Estimated Glomerular Filt Rate > 60; Glucose 194 mg/dL (65-110); Sodium 134 mmol/L (137-145)
[2022-12-05] MEDS: LEVOTHYROXINE SODIUM 112 MCG TABLET PO (05:56)
[2022-12-05] MEDS: ACETAMINOPHEN 500 MG TABLET 1000 MG PO (05:56)
[2022-12-05] MEDS: metroNIDAZOLE 250 MG TABLET 500 MG PO (05:56)
[2022-12-05 07:41] LABS: Glucose Point of Care 237 mg/dl (65-105)
[2022-12-05] MEDS: ASPIRIN 81 MG ENTERIC TABLET PO (08:54)
[2022-12-05] MEDS: ACIDOPHILUS/BULGARICUS CHEWABLE TABLET 1 TABLET PO (08:54)
[2022-12-05] MEDS: amLODIPine BESYLATE 5 MG TABLET 10 MG PO (08:54)
[2022-12-05] MEDS: CIPROFLOXACIN 500 MG TAB PO (08:54)
[2022-12-05] MEDS: HEPARIN SODIUM 5,000 UNITS/ML VIAL 5000 UNITS SUB-Q (08:55)
[2022-12-05] MEDS: MULTIVITAMINS THERAPEUTIC TAB (*BKC) 1 TABLET PO (08:55)
[2022-12-05] MEDS: FLUCONAZOLE 100 MG TABLET PO (08:55)
[2022-12-05] MEDS: PANTOPRAZOLE 40 MG TABLET PO (08:55)
[2022-12-05] MEDS: INSULIN GLARGINE (*BKC) 100 UNITS/ML 11 UNITS SUB-Q (08:59)
[2022-12-05] MEDS: INSULIN ASPART (*BKC) 100 UNITS/ML SUB-Q ×2 (08:59→12:25)
[2022-12-05] MEDS: traMADol HCL (*CRX) 50 MG TABLET PO (09:09)
[2022-12-05 11:35] LABS: Glucose Point of Care 311 mg/dl (65-105)
--- NOTE | 2022-12-05 12:37 | PM.DS ---
DS: Admitting Diagnosis Discharge Date 12/05/22 Admitting Diagnosis Perforated sigmoid diverticulitis Pelvic abscess Insulin dependent diabetes mellitus DS: Discharge Diagnosis Discharge Diagnosis (1) Diverticulitis of large intestine with perforation and abscess: Qualifiers: Diverticulitis bleeding: without bleeding Qualified Code(s): K57.20 - Diverticulitis of large intestine with perforation and abscess without bleeding Code(s): K57.20 - Diverticulitis of large intestine with perforation and abscess without bleeding Status: Acute (2) Confusion: Code(s): R41.0 - Disorientation, unspecified Status: Acute (3) HTN (hypertension): Code(s): I10 - Essential (primary) hypertension Status: Acute (4) Insulin dependent diabetes mellitus: Status: Chronic DS: Summary Hospital Course Reason for hospitalization: This is a 77 year old woman known to our service from a hospitalization where she was treated for perforated sigmoid diverticulitis with pelvic abscess. She was treated with IV antibiotics and percutaneous drainage of the abscess. She was discharged on 10/06/22 with oral antibiotics and the percutaneous drain, which had to be replaced on 10/20/22. She had a repeat CT scan as an outpatient that showed improvement of multiloculated pelvic abscesses. Her percutaneous drain was then removed in the office by Dr. Go on 11/12/22. Discussion were had with the patient in the office and decision was made to proceed with surgery. The patient presented for surgery on 12/01/22 and underwent low rectosigmoid bowel resection with end-to-end stapled anastomosis, drainage of chronic pelvic abscesses, incidental appendectomy by Dr. Go. We also asked Urology to place ureteral stents for surgery. So she additionally had cystoscopy with bilateral retrogrades, bilateral ureteral stent placement, which were removed at the end of her surgery. Hospital Course: She was admitted post-operatively. Post-op day 1 she was experiencing confusion. CT head ordered and Hospitalist consulted. CT head was negative for any acute process. They additionally held promethazine with concern this could be a possible source for her confusion. She had minimal narcotic use. Her confusion resolved and it was felt this was related to the anesthesia and medications given post-op. Her post-op nausea was controlled with other additional antiemetics as needed with promethazine being held. She was continued on oral ciprofloxacin and metronidazole following surgery. WBC did go up to 22,500 on post-op day 1, but trended down the following two days. Hospitalist additionally ordered blood cultures due to the leukocytosis, which showed no growth. Her diet was slowly advanced following surgery and bowel function returned on post-op day 4. Pain has been well-controlled. She was found to have high blood pressure readings with no known history of hypertension. She was started on Norvasc and blood pressures improved. This was continued on discharge. PRASHANT drain monitored following surgery with minimal serosanguineous output by today. Patient was doing well by today and stable for discharge. PRASHANT drain removed prior to discharge today Hospitalist okay with discharge today. Patient has scheduled follow-up with Dr. Go in 1-2 weeks. Status at Discharge Functional status at discharge: independent ambulation Overall status at discharge: patient is progressing back to baseline Time Spent with Patient Time attestation: Total time spent providing and/or coordinating discharge services: Time spent: Greater than 30 minutes Exam Const: General: comfortable and no acute distress Orientation/consciousness: patient oriented x3 Resp: Effort & Inspection: normal respiratory effort Auscultation: clear to auscultation bilaterally Cardio: Rate: regular rate Rhythm: regular rhythm GI: Inspection: non-distended, incision (dry and healing well, no erythema) and other (PRASHANT drain
--- NOTE | 2022-12-05 13:26 | PM.DS ---
DS: Admitting Diagnosis Discharge Date 12/05/2022 Admitting Diagnosis AMS and abdominal pain DS: Discharge Diagnosis Discharge Diagnosis (1) Mental status alteration: Code(s): R41.82 - Altered mental status, unspecified Status: Acute Assessment and Plan: Resolved.Secondary to anaesthesia and meds, Resolved now (2) HTN (hypertension): Code(s): I10 - Essential (primary) hypertension Status: Acute Assessment and Plan: New diagnosis of HTN, Norvasc prescribed on DC (3) H/O cystoscopy: Code(s): Z98.890 - Other specified postprocedural states Status: Acute Assessment and Plan: Postprocedure care per Urology. (4) History of bowel resection: Code(s): Z90.49 - Acquired absence of other specified parts of digestive tract Status: Acute Assessment and Plan: Postop care per surgery pain control per surgery she has hydromorphone, oxycodone, and tramadol The patient was continued with ciprofloxacin p.o. and she is on Flagyl p.o. as well wcc improving blood cultures negative to date (5) Depression: Qualifiers: Depression Type: major depressive disorder Major depression recurrence: unspecified whether recurrent Psychotic features: without psychotic features Code(s): F32.A - Depression, unspecified Status: Chronic Assessment and Plan: continue with Prozac (6) Hypothyroidism: Qualifiers: Hypothyroidism type: acquired Qualified Code(s): E03.9 - Hypothyroidism, unspecified Code(s): E03.9 - Hypothyroidism, unspecified Status: Chronic Assessment and Plan: resume all home meds (7) Insulin dependent diabetes mellitus: Status: Chronic Assessment and Plan: resume home medications. DS: Summary Hospital Course Hospital Course: Stephania Benjamin is a 77 year old female? who was seen on 11/08/[address] Go.? The patient had a previous CT scan on 11/07/2022 that shows improved multiloculated pelvic abscesses compared to 10/18/2022.? At that time there is minimal drainage from both drains.? She was eating more but is frequently using the restroom.? She has had loose stools.? The abscess drains had to be replaced by radiologist on 10/20/2022.? On 12/01/2022 the patient had a perforated sigmoid diverticula with pelvic abscess and a cystoscopy, bilateral retrogrades, bilateral external ureteral stent was placed by Dr. Myles.? Also on that day the patient had lower anterior a retrosigmoid in bowel resection and end-to-end stapled EEA anastomosis and drainage of pelvic abscess x3 incidental appendectomy ? Per Dr. Go. see operative note.? Today the patient was somewhat confused and stated that she was seeing people that were not there.? Otherwise she is alert orientated to person place and time.? Her is at the bedside.? The patient is answering questions appropriately.? Her white count was found to be 22.5.? H&H is 10.5 and 33.1.? Her blood sugars have been 197, 217 and 206.? Head CT today was read as no acute intracranial abnormality.? Chronic age-related findings.? The hospitalist group was asked to consult on the patient on 12/02/22 for medical management. Time Spent with Patient Time attestation: Total time spent providing and/or coordinating discharge services: Exam Const: General: cooperative, healthy appearing, comfortable, no acute distress, well developed, awake, Physically active, average body habitus and well nourished Nutritional Appearance: average body habitus and well nourished Orientation/consciousness: oriented to person, oriented to place, oriented to time and patient oriented x3 Limitations: no limitations HENMT: Head: normal to inspection, No palpable skull fracture present, normocephalic and atraumatic Ears: hearing grossly normal bilaterally and external ears normal Face/Nose/Sinus: Normal external nose present and Normal nares present Eyes: General: appe
== END 2022-12-05 13:55 | disposition home or self-care (01) | DRG 331 ==
LOC: ANHSURGERY 09:19 → ANH2MED 14:45
PROVIDERS: Surgery; Urology; Admitting Provider Surgery; PCP Family Medicine; Visit Provider Family Medicine
PROC: 0DTN0ZZ Resection of Sigmoid Colon, Open Approach (ICD-10-PCS; CPT 44143; principal; 2022-12-01 07:30)
PROC: 0TJB8ZZ Inspection of Bladder, Via Natural or Artificial Opening Endoscopic (ICD-10-PCS; 2022-12-01 07:30)
DX: K57.20 Diverticulitis of large intestine with perforation and abscess without bleeding (principal); R41.82 Altered mental status, unspecified; T41.45XA Adverse effect of unspecified anesthetic, initial encounter; T50.915A Adverse effect of multiple unspecified drugs, medicaments and biological substances, initial encounter; R11.2 Nausea with vomiting, unspecified; I10 Essential (primary) hypertension; F32.A Depression, unspecified; E03.9 Hypothyroidism, unspecified; E78.5 Hyperlipidemia, unspecified; K58.0 Irritable bowel syndrome with diarrhea; Z96.651 Presence of right artificial knee joint; Z87.891 Personal history of nicotine dependence; Z90.710 Acquired absence of both cervix and uterus; Z86.16 Personal history of COVID-19; Z85.819 Personal history of malignant neoplasm of unspecified site of lip, oral cavity, and pharynx; D64.9 Anemia, unspecified
CPT/HCPCS: 36415; 36430; 70450; 74420; 80048; 80053; 82948; 85025; 85027; 86850; 86900; 86901; 86923; 87040; 88304; 88305; 88307; 97161; 97165; A9270; C1729; C1758; C1769; C9290; J0690; J1100; J1170; J1644; J1815; J1885; J2250; J2370; J2405; J2704; J3010; J7030; J7120; P9016

== ENCOUNTER 2023-03-20 08:00 | Outpatient (NON) | payer MEDICARE, SELFPAY | END 2023-03-20 08:01 | disposition home or self-care (01) | LOC: ANHLAB 03-21 14:33 | PROVIDERS: PCP Family Medicine; Visit Provider Nurse Practitioner | DX: C44.311 Basal cell carcinoma of skin of nose (principal); C44.319 Basal cell carcinoma of skin of other parts of face | CPT/HCPCS: 88305 ==

== ENCOUNTER 2023-05-07 13:52 | Outpatient (NON) | payer MEDICARE, SELFPAY | END 2023-05-07 13:53 | disposition home or self-care (01) | LOC: ANHLAB 13:53 | PROVIDERS: PCP Family Medicine; Visit Provider Nurse Practitioner | DX: C44.319 Basal cell carcinoma of skin of other parts of face (principal); C44.311 Basal cell carcinoma of skin of nose | CPT/HCPCS: 88305; 88331 ==

== ENCOUNTER 2023-05-18 08:42 | Outpatient (CLI) | payer MEDICARE, SELFPAY ==
--- NOTE | ~2023-05-18 | MM_ITS ---
EXAMINATION: MM screening kathrine BI w corinne HISTORY: Screening mammogram TECHNIQUE: Craniocaudal and mediolateral oblique 3-D tomosynthesis images were obtained and synthetic 2-D images were generated. CAD analysis was submitted and interpreted. COMPARISON: 07/14/2021, 08/06/2018 bilateral screening mammogram examinations BREAST PARENCHYMAL COMPOSITION: The breasts are extremely dense, which lowers the sensitivity of mamm ography. FINDINGS: Scattered bilateral benign calcifications. There is no evidence of suspicious mass, calcifi cation, or architectural distortion to suggest malignancy in either breast. There has been no suspici ous interval change. IMPRESSION: 1. No mammographic evidence of malignancy. 2. Recommend routine screening mammography in one year. BI-RADS Category 2: Benign finding(s). Reviewed, dictated and finalized at location A.
== END 2023-05-18 08:43 | disposition home or self-care (01) ==
LOC: ANHIMG 08:45
PROVIDERS: PCP Family Medicine; Visit Provider Physician Assistant
DX: Z12.31 Encounter for screening mammogram for malignant neoplasm of breast (principal)
CPT/HCPCS: 77063; 77067

== ENCOUNTER 2025-02-18 11:34 | Outpatient (CLI) | payer MEDICARE, SELFPAY ==
--- OUTSIDE RECORDS SUMMARY | 2025-02-18 11:55 | XMS_ITS | Clinical Summary ---
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 Gender Identity Not on file Sexual Orientation Not on file Plan of Treatment Health Maintenance Due Date Last Done Comments Hepatitis C Virus (HCV) Screening 1945 TdaP Immunization 1945 Pneumococcal Immunization (5 0+ years) (1 of 1 - PCV) 1997 Zoster Immunization (1 of 2) 1997 Respiratory Syncytial Virus (RSV) Immunization (Adult) (1 - 1-dose 75+ series) 2022 SARS-COV-2 Immunization ( - 2023-25 season) 2024 Influenza Immunization (#1) 2025 Colonoscopy Discontinued 08/08/2018 Colorectal Cancer Screening Discontinued Cologuard Discontinued Hepatitis B Immunization Aged Out No longer eligible based on patient's age to complete this topic Human Papillomavirus (HPV) Immunization Aged Out No longer eligible b ased on patient's age to complete this topic Immunochemical Fecal Occult Blood Discontinued Meningococcal Immunization (ACWY) Aged Out No longer eligible based on patient's age to complete this topic Rotavirus Immunization Aged Out No lo nger eligible based on patient's age to complete this topic Procedures Procedure Name Priority Date/Time Associated Diagnosis Comments COLONOSCOPY Routine 08/08/2018 from Last 3 Months or Most Recently Relevant to Health Maintenance Results * COLONOSCOPY (08/08/2018) Curt Raines DO PROCEDURE/MINOR SURGICAL ORDERA BLES Final Result from Last 3 Months or Most Recently Relevant to Health Maintenance Insurance MEDICARE C [employer] on file Care Teams Plumber Relationship Specialty Start Date End Date Stanley Villa MD [address] [place] [address] [address] [place] [address] PCP - General Family Medicine 06/12/18
--- OUTSIDE RECORDS SUMMARY | 2025-02-18 11:55 | XMS_ITS | Continuity of Care Document ---
Author Organization [facility] Address [address] [place] [address] Phone Care Team Providers Care Behavioral Health Counselor Name Role Phone Cardenas OD, Curt Unavailable Unavailable Advance Directives Directive Yes / No Effective Date File Name No Information Encounters Encounter Description Practice Location Reason(s) For Visit Diagnoses Date Provider Providers Copied on Encounter [facility], [address], [place], [place], [id number], [place] tel:[phone] [facility] No Information November-3 0-200 6 Cardenas OD Curt. [address] , [address], [place], [address], [place]. tel:[phone] Family History Family Member Type Diagnosis Age At Onset No Information Payers Payer name Insurance type Covered alliance party ID Authoriza tion(s) No Information Social History Type Description Quantity Date Captured Comments Sex Female Smoking Status No Information Chief Complaint And Reason For Visit No Information Reason For Referral Reason For Referral No Information History Of Present Illness Encounter Date Complaint History Of Prese nt Illness No Information Functional Status Date Functional Assessmen t No Information Instructions Date Instruction Additional Infor mation No Information Assessments Type Assessment Date No Information Patient Care Teams Name Effective Dates (start - stop) Status Members No Information
--- OUTSIDE RECORDS SUMMARY | 2025-02-18 11:56 | XMS_ITS | Referral Summary ---
Author Organization [facility] [address] [facility] Address [address] [place] [address] Care Team Providers Care Linter Operator Name Role Phone Stanley Villa MD Primary Care Provider [phone] Allergies No known active allergies Medications traMADoL (ULTRAM) 50 mg tablet TAKE 2 TABLETS BY MOUTH THREE TIMES DAILY NEEDED FOR PAIN 01/30/2021 Active metFORMIN XR (GLUCOPHAGE XR) 500 mg 24 hr tablet 12/30/2020 Active levothyroxine (SYNTHROID) 112 mcg tablet 01/15/2021 Active latanoprost (XALATAN) 0.005 % ophthalmic solution 01/28/2021 Active FLUoxetine (PROzac) 40 mg capsule 01/03/2021 Active ibuprofen (ADVIL,MOTRIN) 800 mg tablet 12/20/2020 Activ e PreviDent 5000 Sensitive 1.1-5 % paste 02/16/2021 Active cyanocobalamin (Vitamin B-12) 100 mcg tabletIndicatio ns:Prevention of Vitamin B12 Deficiency Take 100 mcg by mouth daily Active cholecalciferol (VITAMIN D-3) 2000 unit capsule 2,000 Units Active coenzyme Q10 100 mg capsule Take 100 mg by mouth daily Active fish oil-dha-epa 1,200-144-216 mg capsule Take by mouth Active aspirin 81 mg enteric coated tablet Take 81 mg by mouth daily Active Active Problems No known active problems Social History Tobacco Use Types Packs/Day Years Used Date Smoking Tobacco: Former Smokeless Tobacco: Never Personal Safety Answer Date Recorded Getting School Help Needed Not on file 07/08 Comments Unknown Sex and Gender Information Value Date Recorded Sex Assigned at Not on file Legal Sex Female 2:12 PM CDT Gender Identity Not on file Sexual Orientation Not on file Last Filed Vital Signs Vital Sign Reading Time Taken Comments Blood Pressure 160/78 03/02/2021 2:36 PM CDT Pulse 56 03/02/2021 2:36 PM CDT Temperature 36.7 C (98.1 F) 03/02/2021 2:36 PM CDT Respiratory Rate 14 03/02/2021 2:36 PM CDT Oxygen Saturation 97% 03/02/2021 2:36 PM CDT Inhaled Oxygen Concentration - - Weight 67 kg (147 lb 12.8 oz) 03/02/2021 2:36 PM CDT Height 168.9 cm (5' 6.5) 03/02/2021 2:36 PM CDT Body Mass Index 23.5 03/02/2021 2:36 PM CDT Plan of Treatment Not on file Insurance [facility] MDCR HMO [facility] MEDIC[facility] Address: [facility] [address] [place] [address] Care Teams Linter Operator Relationship Specialty Start Date End Date Stanley Villa MD PCP - General Family Medicine 03/02/21
--- OUTSIDE RECORDS SUMMARY | 2025-02-18 11:56 | XMS_ITS | Clinical Summary ---
Author [place] [facility] [place] [facility] Address [address] [place] [address] Care Team Providers Care Software Technical Lead Name Role Phone Stanley Villa MD Primary Care Provider [phone] Allergies No known active allergies Medications traMADoL [...] Active Active Problems No known active problems Surgical History Surgery Date Site/Laterality Comments HYSTERECTOMY THYROID SURGERY DILATION AND CURETTAGE OF UTERUS Medical History Medical History Date Comments Diabetes mellitus (HCC) Family History Medical History Relation Name Comments Heart disease Brother Heart disease Father Alzheimer's disease Mother Relation Name Status Comments Brother Father Mother Social History Tobacco Use Types Packs/Day Years Used Date Smoking Tobacco: Former Smokeless Tobacco: Never Personal Safety Answer Date Recorded Getting School Help Needed Not on file 07/08 Comments Unknown Sex and Gender Information Value Date Recorded Sex Assigned at Not on file Legal Sex Female 2:12 PM CDT Gender Identity Not on file Sexual Orientation Not on file Obstetrics History Last Filed Vital Signs Vital Sign Reading [...] Plan of Treatment Not on file Insurance [employer], [address] [place] HMO REF Care Teams Software Technical Lead Relationship Specialty Start Date End Date tSanley Villa MD PCP - General Family Medicine 03/02/21
[2025-02-18 20:44] LABS: MALB Creatinine Ratio < 16.0 mg/g (0-30)
== END 2025-02-18 11:35 | disposition home or self-care (01) ==
LOC: ANHGOSHLAB 11:35
PROVIDERS: PCP Family Medicine; Visit Provider Family Medicine
DX: E13.9 Other specified diabetes mellitus without complications (principal); Z79.4 Long term (current) use of insulin
CPT/HCPCS: 82043